=== PATIENT | female | born 1955 | race Caucasian/White ===

== ENCOUNTER 2023-06-30 11:06 | Emergency (ER) | payer OTHER, SELFPAY ==
[2023-06-30] VITALS (10 sets, daily range): BP systolic 118–167; BP diastolic 63–99; PULSE 70–82; RESP 13–20; TEMP 37.2; O2SAT 94–97; BMI 37.9
--- NOTE | 2023-06-30 11:33 | ECG_ITS ---
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
--- NOTE | 2023-06-30 11:33 | XR_ITS ---
The [address] [address] Patient Name: LASHON MARTINEZ MRN: [id number] date: 1955 Sex: F Assigned Patient Location: ER Current Patient Location: ER Accession/Order Number: [id number] Exam Date: 06/30/2023 11:45 Report Date: 06/30/2023 12:05 At the request of: MARYBEL MARIA Procedure: XR chest 1V EXAM: XR chest 1V HISTORY: cp COMPARISON: None. TECHNIQUE: AP view of the chest. FINDINGS: The cardiomediastinal silhouette is enlarged. The lungs are clear. There is no pneumothorax. No pleural effusion is noted. The osseous structures are intact. XR/XR chest 1V IMPRESSION: Cardiomegaly without failure. Electronically authenticated by: ROSA ORTIZ Date: 06/30/2023 12:05
[2023-06-30 11:40] LABS: Basophils Absolute Auto 0.1 10^3/uL (0.0-0.1); Basophils Percent Auto 0.6 % (0.2-2.0); Eosinophils Absolute Auto 0.3 10^3/uL (0.0-0.7); Hematocrit 44.8 % (36.0-48.0); Hemoglobin 14.7 g/dL (12.0-16.0); Immature Granulocytes Abs Auto 0.07 10^3/uL (0.00-0.03); Immature Granulocytes Pct Auto 0.7 % (0.0-0.5); Lymphocytes Absolute Auto 1.5 10^3/uL (1.2-3.8); Lymphocytes Percent Auto 14.4 % (20.5-60.0); Mean Corpuscular HGB Conc 32.8 g/dL (29.9-35.2); Mean Corpuscular Hemoglobin 30.4 pg (26.7-34.0); Mean Corpuscular Volume 92.8 fL (81.0-99.0); Mean Platelet Volume 9.5 fL (9.5-13.5); Monocytes Absolute Auto 0.9 10^3/uL (0.3-0.8); Monocytes Percent Auto 8.7 % (1.7-12.0); Neutrophils Absolute Auto 7.3 10^3/uL (1.4-6.5); Neutrophils Percent Auto 72.6 % (43.0-75.0); Platelet Count 390 10^3/uL (150-450); Red Blood Count 4.83 10^6/uL (4.20-5.40); Red Cell Distribution Width 12.7 % (11.0-15.0); White Blood Count 10.1 10^3/uL (4.0-11.0)
[2023-06-30] MEDS: ASPIRIN 81 MG TAB.CHEW 162 MG PO (11:43)
[2023-06-30 11:48] LABS: INR 0.95; Partial Thromboplastin Time 29.9 sec (22.3-36.2); Prothrombin Time 10.1 sec (9.0-11.6)
[2023-06-30 11:58] LABS: Alanine Aminotransferase 24 U/L (14-59); Albumin Globulin Ratio 0.9; Albumin Level 3.5 g/dL (3.4-5.0); Alkaline Phosphatase 119 U/L (46-116); Anion Gap 10.4; Aspartate Amino Transferase 18 U/L (15-37); BUN Creatinine Ratio 17.2; Bilirubin Total 0.5 mg/dL (0.2-1.0); Calcium 9.1 mg/dL (8.5-10.1); Carbon Dioxide 31.8 mmol/L (21.0-32.0); Chloride 93 mmol/L (98-107); Estimated GFR (African America >60 (>=60); Estimated GFR (Non-African Ame 60 (>=60); Globulin 3.9 g/dL; Glucose 210 mg/dL (74-106); Potassium 3.2 mmol/L (3.5-5.1); Sodium 132 mmol/L (136-145); Total Protein 7.4 g/dL (6.4-8.2); Troponin I High Sensitivity 4.5 pg/mL (4.0-51.3)
--- NOTE | 2023-06-30 12:29 | CT_ITS ---
[address] [address] Patient Name: LASHON MARTINEZ MRN: [id number] date: 1955 Sex: F Assigned Patient Location: ER Current Patient Location: ER Accession/Order Number: [id number] Exam Date: 06/30/2023 12:42 Report Date: 06/30/2023 13:07 At the request of: MARYBEL MARIA Procedure: CT angio chest EXAM: CT angio chest HISTORY: rule out PE COMPARISON: None. TECHNIQUE: CT chest with intravenous contrast was performed with timing for the evaluation for pulmonary arteries. Multiplanar reformats were performed. MIP (maximum intensity projection) images or 3D post processing was performed. Dose reduction techniques were achieved by using automated exposure control and/or adjustment of mA and/or kV according to patient size and/or use of iterative reconstruction technique. FINDINGS: Lungs: No consolidation, pneumothorax, or effusion. Mild bilateral centrilobular emphysema. Airways: Normal. Mediastinum: No adenopathy. Aorta: No aneurysm. Cardiac: Normal size. No pericardial effusion. Pulmonary vasculature: Diagnostic opacification of pulmonary arteries without evidence of pulmonary embolus. Normal morphology. Bones: No acute bony abnormality. Degenerative changes of the thoracic spine. Axilla: No adenopathy. Thyroid gland: No abnormality demonstrated on provided imaging. Soft tissues: Unremarkable. Upper abdomen: Small hiatal hernia Additional findings: None. CT/CT angio chest IMPRESSION: No evidence of pulmonary embolus or acute intrathoracic abnormality. Small hiatal hernia. Electronically authenticated by: SHINE CRESPO Date: 06/30/2023 13:07
--- NOTE | 2023-06-30 12:30 | ED_ITS ---
HPI - General Adult General Chief complaint: Chest Pain Stated complaint: CHEST PAIN Time Seen by Provider: 06/30/23 11:20 Source: patient Mode of arrival: walk-in Limitations: no limitations History of Present Illness HPI narrative: Patient is a 68-year-old female who is presenting to the ER today with chief complaint of midsternal and parasternal pain for the past 3 to 4 days. Patient does not recall doing any kind of heavy lifting, twisting or turning. Patient has pain with a deep inspiration, also pain with twisting and turning. Patient has a significant cardiac history in 2021, patient was unresponsive and in a coma for 3 to 4 days, when patient woke up she went into cardiopulmonary arrest. It was found that patient had pulmonary embolism that caused her arrest. Patient was also found to have A-fib and DVT. Patient is currently on Eliquis. Patient has no chest heaviness, tightness, no shortness of breath. Patient is afraid to take a deep breath secondary to the pain. Patient chief concern is pulmonary embolism. No swelling to legs, no abdominal pain, nausea or vomiting. All systems are negative except as noted/marked. All systems reviewed and otherwise negative. Nurses note and vital signs reviewed and patient is not hypoxic. General: The patient appears well and in no apparent distress. Patient is resting comfortably on cart. Patient is not toxic, lethargic, or listless Skin: Warm, dry, no pallor noted. There is no rash noted. No petechiae, purpura. Head: Normocephalic, atraumatic Eye: Normal conjunctiva, no drainage, EOMI. PERRL Ears, Nose, Mouth, and Throat: oral mucosa is moist. Nares patent. Mouth without vesicles. Cardiovascular: Regular Rate and Rhythm, no murmur, gallop, rub; patient has moderate to severe reproducible tenderness to palpation with light palpation to sternum and parasternal area, possible costochondritis. No rash noted. No pain to bilateral lateral posterior chest wall. Respiratory: Patient is in no distress, no accessory muscle use, lungs are clear to auscultation, no wheezing, rales or rhonchi Back: non-tender, no CVA tenderness bilaterally to percussion. No CT LS midline pain GI: Obese, no tenderness to palpation, no masses appreciated. No rebound, guarding, or rigidity noted. No distention Musculoskeletal: Patient has full range of motion of all of the extremities, no motor, sensory, or focal neurological deficits Neurological: A&O x4, normal speech Psychiatric: Cooperative Related Data Home Medications Medication Instructions Recorded Confirmed apixaban 5 mg tablet (Eliquis) 5 mg PO Q12H 06/30/23 06/30/23 atorvastatin 20 mg tablet 20 mg PO DAILY 06/30/23 06/30/23 duloxetine 60 mg capsule,delayed 60 mg PO DAILY 06/30/23 06/30/23 release metformin 500 mg tablet 500 mg PO TID 06/30/23 06/30/23 metoprolol tartrate 25 mg tablet 25 mg PO Q12H 06/30/23 06/30/23 montelukast 10 mg tablet 10 mg PO BEDTIME 06/30/23 06/30/23 nortriptyline 25 mg capsule 25 mg PO BEDTIME 06/30/23 06/30/23 pregabalin 100 mg capsule 100 mg PO TID 06/30/23 06/30/23 semaglutide 1 mg/dose (4 mg/3 mL) 1 mg subcut .weekly 06/30/23 06/30/23 subcutaneous pen injector (Ozempic) tramadol 50 mg tablet 50 mg PO Q6H PRN pain 06/30/23 06/30/23 triamterene 37.5 1 tab PO DAILY 06/30/23 06/30/23 mg-hydrochlorothiazide 25 mg tablet Allergies Allergy/AdvReac Type Severity Reaction Status Date / Time hydromorphone [From Dilaudid] AdvReac Mild Hypotension Verified 06/30/23 11:21 nitrofurantoin AdvReac Mild Hives Verified 06/30/23 11:21 [From Macrodantin] Exam Constitutional Vital Signs, click to edit/add: Last Vital Signs Temp 98.9 F 06/30/23 11:21 Pulse 70 06/30/23 13:00 Resp 15 06/30/23 11:46 BP 144/63 H 06/30/23 13:00 Pulse Ox 95 06/30/23 13:00 O2 Del Method Room Air 06/30/23 11:21 Course Vital Signs Vital signs: Vital Signs Pulse Rate 79 06/30/23 11:17 Respiratory Rate 13 06/30/23 11:17 Temperature 98.9 F 06/30/23 11:21 Pulse Rate 70 06/30/23 13:00 Respiratory Rate 15 06/30/23 11:46 Blood Pressure 144/63 H 06/30/23 13:00 Pulse Oximetry 95 06/30/23 13:00 Oxygen Delivery Method Room Air 06/30/23 11:21 Medical Decision Making MDM Narrative Medical decision making narrative: Patient will be given 1 L of IV fluids for sodium replacement of 132.. Patient was also given sodium bicarb to drink as well to help replace sodium with 3.2. Patient troponin is negative, chest x-ray shows no acute findings. Patient chief concern is pulmonary embolism. Patient will have CTA of the chest, patient has underlying fear of DVT, pulmonary embolism, and cardiac arrest from what occurred 2 years ago. Increase sodium and potassium in your diet, multivitamins work well. Follow-up with PCP or avionics manager as needed. A copy of your CTA chest has been given to you as well. Use ice and not heat. Lab Data Labs: Lab Results 06/30/23 Range/Units 11:25 WBC 10.1 (4.0-11.0) 10^3/uL RBC 4.83 (4.20-5.40) 10^6/uL Hgb 14.7 (12.0-16.0) g/dL Hct 44.8 (36.0-48.0) % MCV 92.8 (81.0-99.0) fL MCH 30.4 (26.7-34.0) pg MCHC 32.8 (29.9-35.2) g/dL RDW 12.7 (11.0-15.0) % Plt Count 390 (150-450) 10^3/uL MPV 9.5 (9.5-13.5) fL Neut % (Auto) 72.6 (43.0-75.0) % Lymph % (Auto) 14.4 L (20.5-60.0) % [place] % (Auto) 8.7 (1.7-12.0) % Eos % (Auto) 3.0 (0.9-7.0) % Baso % (Auto) 0.6 (0.2-2.0) % Neut # (Auto) 7.3 H (1.4-6.5) 10^3/uL Lymph # (Auto) 1.5 (1.2-3.8) 10^3/uL [place] # (Auto) 0.9 H (0.3-0.8) 10^3/uL Eos # (Auto) 0.3 (0.0-0.7) 10^3/uL Baso # (Auto) 0.1 (0.0-0.1) 10^3/uL Abs Immat Gran (auto) 0.07 H (0.00-0.03) 10^3/uL Imm/Tot Granulo (auto) 0.7 H (0.0-0.5) % PT 10.1 (9.0-11.6) sec INR 0.95 APTT 29.9 (22.3-36.2) sec Sodium 132 L (136-145) mmol/L Potassium 3.2 L (3.5-5.1) mmol/L Chloride 93 L (98-107) mmol/L Carbon Dioxide 31.8 (21.0-32.0) mmol/L Anion Gap 10.4 BUN 16.0 (7.0-18.0) mg/dL Creatinine 0.93 (0.55-1.02) mg/dL Est GFR ( Amer) >60 (>=60) Est GFR (Non-Af Amer) 60 (>=60) BUN/Creatinine Ratio 17.2 Glucose 210 H (74-106) mg/dL Calcium 9.1 (8.5-10.1) mg/dL Total Bilirubin 0.5 (0.2-1.0) mg/dL AST 18 (15-37) U/L ALT 24 (14-59) U/L Alkaline Phosphatase 119 H (46-116) U/L Troponin I High Sens 4.5 (4.0-51.3) pg/mL NT-Pro-B Natriuret Pep 60.0 (<=900.0) pg/mL Total Protein 7.4 (6.4-8.2) g/dL Albumin 3.5 (3.4-5.0) g/dL Globulin 3.9 g/dL Albumin/Globulin Ratio 0.9 Potassium is 3.2, sodium is 132, troponin negative. ECG Data Attestation: I personally reviewed and interpreted this ECG as follows: (EKG interpretation. Normal sinus rhythm 81 beats a minute. Normal axis deviation. No acute ST elevation, no acute ectopy. QTc of 379. RVH noted) Discharge Plan Discharge Stand Alone Forms: Portal Instructions Chief Complaint: Chest Pain Clinical Impression: Costochondritis, Chest pain, Hyponatremia, Hypokalemia Patient Disposition: Home, Self-Care Condition: Fair Prescriptions / Home Meds: No Action Eliquis 5 mg tablet 5 mg PO Q12H atorvastatin 20 mg tablet 20 mg PO DAILY duloxetine 60 mg capsule,delayed release(DR/EC) 60 mg PO DAILY metformin 500 mg tablet 500 mg PO TID metoprolol tartrate 25 mg tablet 25 mg PO Q12H montelukast 10 mg tablet 10 mg PO BEDTIME nortriptyline 25 mg capsule 25 mg PO BEDTIME pregabalin 100 mg capsule 100 mg PO TID triamterene-hydrochlorothiazid 37.5-25 mg tablet 1 tab PO DAILY Ozempic 1 mg/dose (4 mg/3 mL) pen injector 1 mg SUBCUT .weekly tramadol 50 mg tablet 50 mg PO Q6H PRN (Reason: pain) Instructions: Chest Pain (ED), Costochondritis (ED), Hyponatremia (ED), Hypokalemia (ED) Additional Instructions: Use Tylenol every 4 hours as needed for pain. A copy of your CT report was given to you. Follow-up with PCP and avionics manager as needed. You have no signs of pulmonary embolism today. Referrals: AMOS YOST [Primary Care Provider] - 1 week
[2023-06-30] MEDS: 0.9 % SODIUM CHLORIDE 1,000 ML 1000 ML IV (12:55)
[2023-06-30] MEDS: POTASSIUM BICARBONATE/CIT 25 MEQ TABLET EFF 50 MEQ PO (12:56)
[2023-06-30] MEDS: KETOROLAC TROMETHAMINE 30 MG/ML VIAL 15 MG IVP (13:23)
== END 2023-06-30 13:45 | disposition home or self-care (01) ==
PROVIDERS: Emergency Provider Emergency Medicine; PCP Internal Medicine
DX: R07.9 Chest pain, unspecified (principal); M94.0 Chondrocostal junction syndrome [Tietze]; E87.1 Hypo-osmolality and hyponatremia; E87.6 Hypokalemia; I48.91 Unspecified atrial fibrillation; Z86.718 Personal history of other venous thrombosis and embolism; Z86.74 Personal history of sudden cardiac arrest; E66.9 Obesity, unspecified; Z79.01 Long term (current) use of anticoagulants; Z79.899 Other long term (current) drug therapy; Z79.84 Long term (current) use of oral hypoglycemic drugs; Z68.37 Body mass index [BMI] 37.0-37.9, adult
CPT/HCPCS: 36415; 71045; 71275; 80053; 83880; 84484; 85025; 85610; 85730; 93005; 96374; 99285; Q9967

== ENCOUNTER 2024-01-18 18:05 | Emergency (ER) | payer OTHER, MEDICAID, SELFPAY ==
--- OUTSIDE RECORDS SUMMARY | 2024-01-18 18:17 | XMS_ITS | CCD ---
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 Name Role Phone Jude Barlow Unavailable Haylee Saucedo Unavailable Mummert DO, David Attending Unavailable Mummert DO, David Admitting Unavailable Mummert DO, David Primary Care Unavailable Mummert DO, David Primary Care Unavailable Tyler, Monalisa Attending Unavailable Tyler, Monalisa Admitting Unavailable Mummert DO, David Referring Unavailable Tyler, Monalisa Attending Unavailable Tyler, Monalisa Admitting Unavailable Mummert DO, David Primary Care Unavailable Mummert DO, David Primary Care Unavailable Mummert DO, David Attending Unavailable Mummert DO, David Attending Unavailable Mummert DO, David Primary Care Unavailable Mummert DO, David Attending Unavailable Mummert DO, David Primary Care Unavailable Mummert DO, David Primary Care Unavailable Mummert DO, David Attending Unavailable Mummert DO, David Primary Care Unavailable Castillo Riley Admitting Unavailab le Osvaldo Castillo Attending Unavailab le MYRNA CARR Attending Unavailable MYRNA CARR Referring Unavailable AMOS YOST Primary Care Unavailable AMOS YOST Referring Unavailable AMOS YOST Primary Care Unavailable AMOS YOST Attending Unavailable ARIEL FRY Attending Unavailable AMOS YOST Attending Unavailable Allergies Allergy Classification Reported Allergen(s) Allergy Type Date of Onset Reaction(s) Facility (4 sources) Erythromycin; Translations: [erythromycin] Drug Allergy 3 Unknown [facility] [place] Repository (2 sources) HYDROmorphone; Translations: [HYDROMORPHONE] Drug Allergy 3 Unknown [facility] Repository (2 sources) Nitrofurantoin; Translations: [NITROFURANTOIN] Drug Allergy 3 Unknown [facility] Repository (2 sources) HYDROmorphone; Translations: [Dilaudid] Drug Allergy [facility] [place] Repository (2 sources) Latex; Translations: [Latex Allergy] Propensity to adverse reactions (disorder) [facility] [place] Repository (2 sources) Nitrofurantoin; Translations: [Macrodantin] Drug Allergy [facility] [place] Repository (1 source) Erythromycin Drug Allergy 3 [facility] Repository (1 source) HYDROmorphone Drug Allergy 3 [facility] Repository (1 source) Nitrofurantoin Drug Allergy 3 [facility] Repository (1 source) Latex; Translations: [LATEX] Propensity to adverse reactions to drug (disorder) 3 [facility] Repository Medications Current Medications Medication Drug Class(es) Dates Sig (Normalized) Sig (Original) 3 ML semaglutide 1.34 MG/ML Pen Injector [Ozempic] (2 sources) inject 1 mg by subcutaneous injection every week Ozempic (1 MG/DOSE) 4 MG/3ML INJECT 1 mg SUBCUTANEOUSLY ONCE A WEEK Subcutaneous for 84 Days Active [id number] actuat albuterol 0.09 mg/actuat metered dose inhaler (2 sources) beta2-Adrenergic Agonist Albuterol Sulfate HFA 108 (90 Base) MCG/ACT Inhalation for 17 Days Active azithromycin 250 mg oral tablet (4 sources) Macrolide Antimicrobial Start: 09-12-2022 Azithromycin 250 MG 2 tablets on the first day, then 1 tablet daily for 4 days Orally Once a day for 5 day(s) August, Active Zithromax Z-Mikey 250 MG as directed Orally as directed for 5 days Active benzonatate 200 mg oral capsule (2 sources) Non-narcotic Antitussive Start: 09-12-2022 take 1 capsule by mouth three times daily as needed for cough Benzonatate 200 MG 1 capsule Orally Three times a day as needed for cough for 7 day(s) August, Active DULoxetine 60 mg delayed release oral capsule (2 sources) Serotonin and Norepinephrine Reuptake Inhibitor take 1 capsule by mouth once daily DULoxetine HCl 60 MG TAKE 1 CAPSULE BY MOUTH DAILY DO NOT CHEW OR CRUSH Oral for 90 Days Active fluticasone propionate 0.05 mg/actuat metered dose nasal spray (2 sources) Corticosteroid Start: 09-12-2022 take 1 spray(s) nasal route twice daily Fluticasone Propionate 50 MCG/ACT 1 spray in each nostril Nasally Twice a day for 14 days August, Active methylPREDNISolone 4 mg oral tablet (1 source) Corticosteroid Start: 11-10-2022 methylPREDNISolone 4 MG take half with breakfast, half with dinner Orally as directed for 6 days Oct, Active metoprolol tartrate 25 mg oral tablet (2 sources) beta-Adrenergic Jacinto take 1 tablet by mouth twice daily Metoprolol Tartrate 25 MG TAKE 1 TABLET BY MOUTH TWICE DAILY Oral for 90 Days Active pregabalin 100 mg oral capsule (2 sources) Pregabalin 100 M G Oral for 30 Days Active traMADol hydrochloride 50 mg oral tablet (2 sources) Opioid Agonist traMADol HCl 50 MG Oral for 30 Days Active triamcinolone acetonide 0.001 mg/mg topical ointment (1 source) Corticosteroid Start: 11-10-2022 Triamcinolone Acetonide 0.1 % 1 application Externally TID for 7 days Oct, Active Problems Active Problems Problem Classification Problem Date Documented Da te Episodic/Chronic Allergic reactions (1 source) Dermatitis, unspecified Episodic Chronic obstructive pulmonary disease and bronchiectasis (1 source) Bronchitis, not specified as acute or chronic Episodic Menopausal disorders (1 source) Other primary ovarian failure; 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 33 Finalized by Ayush Borges MD on 06/13/2023 3:01 PM [facility] Outside Recordson 11-24-2022 Outside Records [id number]#1.00[facility] Consultation/Specialist Note on 09-13-2022 Consultation/Specia list Note [id number]#1.00[facility] Release of Informationon Release of Information [id number]#1.00[facility] Consultation/Specialist Note on 07-21-2022 Consultation/Specia list Note [id number]#1.00[facility] Coding Summaryon 06-20-2022 Coding Summary HTMLBase 64 SswizrxxGWl7uEw+PG hlYWQ+IM5LKYBnS05n bOGpyF4ZY7oYRK3NFE BVVZFULX2DXG8mxTL9 WEicO1QefoTh WnxtgQMpLA24AWl5QQ R0gAnmPKtfhG0mmZPu F8e3AsRlEB43wW80DO afJDJgBjR7AvKsjruh bWFy D8olZwCjvMKjRtx+PH RhYmxlIHdpZHRoPScx KLVsXsWvfEcnHB9kMi 9yZGVyLWNvbGxhcHNl OiBj p9noBSWqFCmsAY2xdJ lmC3YdrGK5QMSge3s5 Yt51wLE+ZSLeEOV8cJ weGZaxr601UzUvx1qb IDM3 cRUiRQlvIJQ8B52nj3 B4YAMnJYXuKGV2qFX1 kJ8lkLhhnbbzO1BrsP VaPyR6WRB2hXJfpQ0z bGln zrtqeU9cBho+Q09ESU 0BANNUVB5PBui1P4Xu PjwvdHI+AB49CQGpLW 38bQNayRRes1lyhBi9 JzEw XMIjDRH4yYqoGZbxy6 PzPPJbG27vqJNyb7Y0 IGNvbGxhcHNlOyBlbX Z2sO3ySBkbmcmwa2hd dzsn Fvbkz5qguv11jI37A1 4uDVwvIHKbJRR5ZOIx LPAlzGwmra9scR4wWc 8+ACuiu8bae2nxjHk4 IjIw POEclvWmkMcsGXV0r3 BpVc65D0JopVczd6Cy Veg4ow99gJXxc9O3eK P3OSvxUZMfdT1wVMrd ZnQ6 AQGfXnWbaV85aYMrMX mnNw8meBbrgOcsOP5q NRGqdhuhGHPxhP2lTE RscQInzYwxAJ2vLUUc bjtm t803PcVbFTG8RTVdqX QbR9IlbE9eHlPtOBLu XAElE2LwqBXpUZcbQ6 83KQzwWpA5HQAdusEm Y2Fs RQVqjYhyLlF3j3G6Ix 3Yn6CmabhzIAT4KWdh DDTyNaM4NgNvQmQ9H1 TiXgr3GHVfzVzwFD3q J3Bh OEQethmwkcgkbZI9YK TiXLQzyA37rEAlJOfh Od8bm5L8b247IOJfWL QlrR49Tx8xzIajNYIb dCBU bL0fguutv3ngcqpkGx BvIRZtAQr7WMl6WGZp rGfqRkFkRHM3HwL5SB N1rDOclA6xzCfgkgkq dG9w Oyc+K38asB1vHXQ0CT J5ujymIOMnliMbZC21 HJ17P8IuQuijnBShcW U+WSXzpgPdvNsjQN3q YmFj g8xwd8BwMQpfP0VvGP AyUHeeOgt1RZVvXMP0 rRB4cP3cIXOkQUhdu9 O6rGS0H3JopyBgdq5a b2xs EDXdQBpoD25nbJVlm4 F6WUNzwAZ8XMJsbOlh HwJvgP92Cxd+PGNvbG erw5FxLpzpo4ger5dj dGg9 IjMwJSIgdmFsaWduPS M2t0ShXb42J01aUMxh ZHRoPSIxNSUiIHZhbG pnpo8vrH2fCt0+PGNv bCB3 hQG9hQ1mCYOiKjA3ER tdR530FzYhpSRzSfvq n3lme3olyOb8YpIiNK JimeSzhVypPGJ9n0Yb Lz48 Y10oHWyyDTZgARIuAI LgYYVxkOhelz9efK8n Ii8+EX5cz5otoc14yD 48dHI+ZOLwGLA4wNlv PSdw XMRqkM7wRZobRcH3MZ LsKcSulN66rGQfRByl Es2ynAeorOmtYS6vFP Bwoxrib099HpEju5wa IDEw jLEmDAhuPAY3F80as8 U9DLQyUHEiPOB3nHV0 aC4ctHqrnmoayAJlyQ sgdmVydGljYWwtYWxp Z246 IHRvcDsnPlBhdGllbn QcZtPxTTi2F8OzOtk1 ZAXsiWasKN2ljJLtWC gnBr7rwWtmgTirMB6v NTBp irgsk969HwYzi1rmJY PojRRxGZfeIMW3G89g r4W4TOMwAXUpWKN3aV F5fJ3keJaihrnjeIMs dDsg dmVydGljYWwtYWxpZ2 46IHRvcDsnPkJpcnRo IPYwhPZ0MZ17RO20rU Yif9F9pOB7N1EkCDOm bmct wkoqxFQ1OEJcOOLrkX 42Vq8mjXvtJs1gZJKj PNQ7WVNmrALoT9WlsA 7jUgKuWWXmPVQfZ7Ft eHQt YPxzA812OYyjImA2GP XowpScB3IhBNGqlOah AkV3j7M4Me5KQ6U1WA 70ZY80eGNtj0N1kWI7 J3Bh KJNpspceqhrafPY7IX KrRSFksX28Yh4icUsr Fx7mHGMbUCD7SGRinD GbA9UfjP1oSeYmEQYs MDAw F5QwaRAxSDewE152YK bvNgZ6OHNgfbTeH7Ai XITasEdvIlH2h4D8Am 0QJLj8HR25TR16jWMc c3R5 oYT2J7InLLLnjkqmyj zmcUD4JSQuPHIzcU34 Mr6jcTqzQs4kSADdPN W2UNPnkCAlN3SoxH8d OiAj HKBbUDDzJ2PfoZCeSE ftL557PXqeOyG0AARf lvXuI8TxCBAaiUrsFw C6s3W3Vx5UDHNcBX52 IFR5 sZK1ZO78MV45N1MbXe wvdGFibGU+PHRhYmxl IHdpZHRoPScxMDAlJy RvmJyrJU8aTv4cBIGd LWNv iKoohDLqYhJfr8lyTC VsKShjPR2alNkiV2Vn sAE7XOMxp6m1Bt21U0 9yV5ToeGY+PGNvbCB3 aWR0 bT3lHkExJvA4NRphH6 10FgVryTWtJzhkq4yo i9dhiSt2LrD9CBJrza OhxZxxHGT2p4KtCd44 Y29s IHdpZHRoPSIxNSUiIH QybSepit0vqZ7hYu3+ QQHlyOA7zCM9hM0uBe SaAtF0YLkcA181BdXx cCIv Minur3yal3jkzGj7Ey IwJSIgdmFsaWduPSJ0 n7QcLr24S4GhcHsyv5 XqIsi0bd28dLWsr1J0 bGU9 W0EyAGZufzikoOUtlJ knSO6cWJSjfxrqWORg nF8rJNYkH2b8VrLaAd Y3ILjsS7OlduB7QDFr cHQg EByyMBA5Q87bq1D7BP SmVBRxJIL6pXO0uT0m bGlnbjogbGVmdDsgdm PydWlcALgmODacR316 IHRv xUzrDLIdxJ3mUZLzaP UloKbzTI1mCRFvupxf HhqYQlZgDXrEZk6tAL 9COR80WV41mYVgq0S9 bGU9 S7MpHPNmhnwaikrymG G1SDYkOGZwaP57bKUv JNmbQc8tx7T1a085GQ GkAJTsaI51En2njOnv MTBw tMCRbU7cduoau3vhfd caJxOoMUJvPTt0NIl3 BPAasWpiUmGfEXQ7Ra S7PCU3zFIigZ3qnIkw bjog bB2iStt+MDIvMTYvMT b0ZTjjoEX+PHRkIHN0 nGdzKOlrVXYgkP6aLM NoY5t8FeWeApZ1NNuo O3Bh MEUroasfOa45aX0uFh AjEcO2VQupV5KqfrY3 GQLnsGGsURurZLK9I9 2ez0R5ZAVgSXExPEH1 dGV4 kE8frBthexespBPivE sgdmVydGljYWwtYWxp J752GSKjpErnCyX6FL gmTLIvEP49YV06rZKd c3R5 dLI6R7VzLNTimoqmyo jzcLG0TGNzWAOffR83 dZSnHMzdSb6kl8Y7q0 07OREqLBKcdW32Ct2v dDog CGCruBOJoH4pjjcph5 xvcjogIzAwMDAwMDt0 ILp5PWKgkRzsOkDfTI G7VqX4MFH2zOCqrM6c bGln kzlokL9tGgm+RkVNQU aNHD51WU38mQSfx8S3 zOM2F8HzYKTyvysjsx yncFY0NPHjQVMinO68 cGFk VWcgRb8hz6M6m445JP UsDTGmwR30Dz6cbStl TALacBVDxB6kiwmlb1 xvcjogIzAwMDAwMDt0 ZXh0 VHYwtIsaIeQjLDE9By J9WGL8dYChfT6hkCcn rcjgiI9eOfg+UmVjdX TpeO4lZV92pCBqrUhm bnQ8 D4PuMzumcXK+PC90YW NlTQ65iWLwcIXbo8wf cIj7BeFeFGWiHST5nR arARyvt3PbFTWeZ06t bGFw y6F8HNMcyTlcfCEbQe ObgMZ2uA2mHDkfyqhh e4luldxlMvrou4yypz 56dA21A93cWKaoBSNp PSIz QIOtKRLriCtkvy1zoD 9wIi8+ZGYnvNF3oMN0 gK1lDbEpZxN2TTodE4 54LgFnfSZrJkkbq4zs d2lk eYn6BpKaQIAijjBbyC pvYGD1j9JfEp06V00a IHdpZHRoPSIyMCUiIH UayNkfnw4gaU3eCh3+ PC9j u6bsmw85vD00iLQ+PH BkMNX4aQaeGFfgLXNd lH5rABhrCkF5EESqJz GtdM91pEJdZOfgCk7g aWdo vMvpRD3lOEYbekwbj5 08UpAjv0gtRBKbiIMs OAsuPKG2M33rd3T3UF PyZTRmCUC9dXE8gZ5m bGln bjogbGVmdDsgdmVydG idVJeiNVynC484GXEh lUppIwBrcFUyT4jjyy OFXO9jXbdiwPC+PHRk IHN0 bMigDSugPQRuyJ9wYE RhD5w5BhQmIbF5OLdk A0ZwtcU2SVJtiAWgBW KubEFPtI5cafujz5ti cjog IcUpCDAkUBd3SMe0GO MqsHdbVcLzZDE9IiB7 IJY4iZNqiJ7kcHwwwa pqqV7kCfe+RklOOjwv dGQ+ NXNhXCE2bRhqIHipCI IluW3vEGBtZ0j9KbEb SuR3CEpvH4IjjsV9IS NvkPNpCSPqfJVQsD8s cztj e2oshavyIlPvFHXlAF w5LEs6FRAzfUmiCwHf CMD6VhJ5USB8mHCsyG 7khCbothhwbQ7wRqx+ TVJO OjwvdGQ+JIRqTPH0jE qfSOxoFXTtiI9zQWTn M4c2DmJaXxL3KBzoS5 WqbwY9EHRgeWObGHAj dCBU aW2cvphuc3qwzyifIt EqLFDfZZe6COx2EZWv mXleSpMaDYY7AsZ0TS C3hBThkP4tlUxgigqr dG9w Oyc+QAH3ALE6UQ30OU 02Y9LdUlylbEMhlKW+ PHRhYmxlIHdpZHRoPS hbIJFlKgCsyDayZW0a Ym9y ZGV (more content not included)... [facility] Consultation/Specialist Note on 06-14-2022 Consultation/Specia list Note [id number]#1.[facility] Provider Orderson 06-14-2022 Provider Orders [id number]#1.00[facility] Coding Summaryon 05-11-2022 Coding Summary HTMLBase 64 PljmvvdtDTg0fYh+PG hlYWQ+EE7XLRHjP13c vKUuyP6GU5hOLS7RPC MVNKYBDV6WBD9bqGR5 BTztF0WqadJe GngxxYXdYQ81NEa6BI N5gYxlBWgrkB0naVIm A4f0AeYsOI67rR34HT sePZSoEoR3CaTvfvze bWFy S1zxXjDwlWBiYtf+PH RhYmxlIHdpZHRoPScx SFViDlKxbXihBR1bRn 9yZGVyLWNvbGxhcHNl OiBj m7gmGCMmWFjtXY9pkR lbH7ZoxYO9ZHSwt5m9 Gd10sOT+NPAuFES4uD voIZnmt094EzOhk8hp IDM3 zIPhYQwiTRF5M36rd8 M1DOQtYHShRUZ3rWT3 xB9nuHkiefogU2TiyP JbOmN4VYA4tPHtkO5z bGln ivjlxD6oMij+Q09ESU 0BGYSRZS4OPor6Q1Cz PjwvdHI+WO86ZDRxEZ 24gRXohSSmj1poxPz0 JzEw FQPiGLR4fJuyOBmjc1 WjGACwW86iqOJsc5F3 IGNvbGxhcHNlOyBlbX U6eH7aNBbyuwiyl9ty dzsn Oecdu6aniv61bY66M2 4gBVuvRKCzYUJ7XAZc AIUzgPewob7uvA5aTe 8+NLnfo3yul2rpzFw8 IjIw OJWescIvrGxaSHV4h5 JkEx61X7JijIjbb6Vr Kjt2dl10sHUqf6W1iP R6JXkoTSAmqF4oJQjk ZnQ6 TCGfUmBclF23tANpVD roTm1dsMcheBruCW1n SDDsqwoxKDSayI2kSI GnnULweOlbDZ5sVOWd bjtm j325JaTxHDS7GSRbkB DhD6PxfL0kEtGxCSQl QZLtZ8PehCAbHQacR3 78GZtvCjF5LIQkbtJh Y2Fs GOBeaWomUyR5j3V2Oq 9Fh8FqmiykOEQ4GCdo XIJxOzX7OqBzOtD7K4 ZoWsr2ALYjjAqvPQ2d J3Bh UHMnebvpraiipOA2ZM QhDDEfwO82dYIrYOks Nw1fy3P5t002YRAtIR ZghJ31Kw8emWeuMXBv dCBU mM2ewzsdx1oqxomyNn XsEUPrNOx2JBx7TETl cXwnOuSgLAD4RkQ3RW H9tSFawU8ijQottlbu dG9w Oyc+W68npP0yKOG1VY K7akvwNCBfvcGoFS30 GQ57U9VlAkpwnVUbeY U+YNDgszKyvQnqYO5a YmFj x1tzk8OcAMvnM0PuLM XqNUokKuw0CFVeVNV2 kEV5fL2sMDQoXPukw5 N4pKY0X9UtjtJpap7o b2xs NQBlPDafW62okXGsw5 H6PXJbrNB9MIFitFtq OyEtaH70Bso+PGNvbG xhu3CbDlfgr5aer6eh dGg9 IjMwJSIgdmFsaWduPS E4e6CrVv36A03nGGmj ZHRoPSIxNSUiIHZhbG tvad9lyA2zHx3+PGNv bCB3 xLI8cC8zRCVoQuX7SH mcK207ImRabPLpDuji d7cpu1ksuRp5MgNpFP PdgoFxnWkmNMU8b4Nx Lz48 F32mTImlXSAfEEXlSB OpFSIvzBqfgz6lxN0c Ii8+BM0iq6swae66gP 48dHI+PDZdXPZ8vElz PSdw RDEqwD1dXTykXoQ9ZL BnSkYsdM38nKWnUUpv Ip5ipHjopShsUB7cLL Rgljaze866MuUxc7ps IDEw cKJmHCkbUVX4W24ih5 O1JXSeAIQjZFF6dSC1 nA7ikDlotyassXZkgW sgdmVydGljYWwtYWxp Z246 IHRvcDsnPlBhdGllbn GtSmCtFHi0Z7GoJko6 RKIypMbbDC5tcDOjPN yoFu8xcKnvgTieNO4s NTBp xivfx832OuImj3yuMX QhkSUpGCpgESG2Y91g p5K6MELfSVKiUYM5hL Q0gQ8kyYlcjrnyjLIe dDsg dmVydGljYWwtYWxpZ2 46IHRvcDsnPkJpcnRo IJTsiPZ7NQ37QL88rW Fyk5C1hQM2Z6VvTDWc bmct czcmgZJ4MMCdFFPugB 28Lq4ppVmqTv2fTCPy VEP5MKRpaNZpS0DbjX 1kRoZxHWAzSRCrO9Um eHQt YAdmM626CBtrWcY3JZ DrdcKxD3EuANFenGkz JiI3h1P1Fn5UC0G6EV 78ED03aEKif9Q6rPO9 J3Bh LFDiubxadievoPB8CY VuCCNmqO05Gb7bxBfu Mr1oDTXjNDT3YIJmbV ZyO7BdqD0yKqPzOIVq MDAw W7SmaCHiKTmyV374CH qpPxD6AEXsfdGeE6Ek DBEkrMwzBwD6u1C5Hn 9BXEi3VQ35CB20wLJn c3R5 pZG8U1RiXDLmbldacg basHT3ZXElMTJikL75 Kl0epWexFz6qQJBcLT B4XNRwzHHsS0IvhO0a OiAj KKBzOLEhJ0CrcYBcYH nzB819AUavNwK0SVRb cjNvV2RbVADwrXevCz X5p5K0Oe0VAJKxSG42 IFR5 nZQ1TG58DB95B6UaTi wvdGFibGU+PHRhYmxl IHdpZHRoPScxMDAlJy JnmDcdOK8sLq4kGAPh LWNv lKswcXXwFiVlz7ivJY XxYKppNW3yrVvtG0Vz gIB6IVOap7k2Oy80A5 5dC8QcwIS+PGNvbCB3 aWR0 oW3eLxMyLqP5XTcfN6 47CwGzjAItUelnk2dl s6wmdBd4OpQ6KIEnnq PhtJqxLQN9c7KwYi12 Y29s IHdpZHRoPSIxNSUiIH BlaRysow4kyL2gWh3+ SZAfiBA3lJG3bO2sYp DzNrO1ZOipQ445DyZu cCIv Akoih2amc3zkfFs4Ep IwJSIgdmFsaWduPSJ0 y2SzBq63W9FmoHufd3 IaFhw4ck22cCZgu5Y0 bGU9 Z0PgLGAldaavhTSpzM qsIC1gOBAczqorIJUp bV5oVVRuL7h3ElQaIk J4ZIgbE9ZxwrB7EONm cHQg GRlmHSC2P02zg6R9JU DeDUOsIGH1dFH1wX9f bGlnbjogbGVmdDsgdm JwhMqhGWmtLGppH486 IHRv oHssGICrrL7hTYRpoS EfiMciHV5aDUImosgl NmhFAyEbRNxWAv3uVX 8KXM14NK42hZQln4Z9 bGU9 L9MgRFGsichezziroU N7ZGUwPNMfrQ51hXRu GBuoOa2pp1L8c332MT SoZEOssF17Gw5pxSdp MTBw dGRLbC8hscitq6uuhe xzLeKxONGfFPn9NYc8 VZNnzUvvVwQxKYW9Lj P3AQI3tBPvlZ4xsPrl bjog wD2kPjn+MDIvMTYvMT z3SKemoTG+PHRkIHN0 nGpaCMpxVYXzrZ6bDC JeC1a4IhVfNlP7VGji O3Bh DLDwhjvrGp45jS7fKq BzCiB8FAmvD3CxbuL8 AWLifANdYZtsRZB1E2 6hk2O2QFBdJZWeXWO1 dGV4 fX4wkDbyteroiCGxmM sgdmVydGljYWwtYWxp R727PKMmuMnuOdJ7OB wlMBUiLI39YS82xCSx c3R5 iYM7Q5QpIVTxjupgkj nsdRU1ZRVxHKTnyQ59 qBSjRGsxXm3zc3J1w0 48FHOiXQSawO83Pp2j dDog HXFmxIMNwO5lzetvz6 xvcjogIzAwMDAwMDt0 OZi7CQGowZbqOoPcWU H7JcV5EYY2lKHubZ5f bGln mwhrdT4zBry+RkVNQU uBDJ58DA01fLJrg0E6 qYD1K6RbGMHsrpytsr zjbMN7LBLjTAImeC80 cGFk FYblNe4gf6H7h524OH YxCWTpvK38Yt5adTaz LVOaeGJHgE0poxizg7 xvcjogIzAwMDAwMDt0 ZXh0 LYYwaBhzDhEmEOZ6Jh E6ZFK4gANwgK6xhZzy drlswU4fTam+T1A8L3 RkPjwvdHI+UO23GGSi ZT48 dBKydNZut8nbbMu9Fv UzYHCzWHR6lLmgFUgg m0TiYBEoD41vsTWwb7 A9YDPfoFzevOOsGmWh bXB0 wC9fJAzhgzirn2ufsd qtGdxob9jdod06qB28 E86bTSmgZJJoARLlAT FnOILhhUlbeu2jmH7q Ii8+ SUItvFD2uHQ5dW6lVb NjJtD0SBesJ889DjRq gHMgMvrzw6bnu4pzzI e2LrQyGJPhhxWztVeq PSJ0 o3JoTe76Q20qDKdcPK RoPSIyMCUiIHZhbGln pq2cfB8eDx6+PC9jb2 piwz87hU19sRN+PHRk IHN0 iTfeJBtuULDveG6bBW keHiJ1QLZtVrUkfJ33 nJLtHGvbWv7hxNrmeX qxQY2gSYNwfprsv101 OiBi t7heUUHvsUQvSJtcEP P9G28xd1Y3QVItBCFg CRZ0lMW4iE5wnPhruw ogbGVmdDsgdmVydGlj YWwt LJfoZ192LZWtvTjxKm RrwZEjI4latvWDAZ7a OjwvdGQ+KPJzSWV9bO tdGPibGOWssF4oAYMz Z2h0 CgBbPeD1AFinN1Hkqk A5GGNoqVRoWIUtqMLT lW1lixygq9njdokgWm MtLXRzPHx1IYx7DDAj aWdu HrVrPHK2ZzL2OOU8mH PbqM3bjXgykmasnN6o Oyc+RklOOjwvdGQ+PH GiLKX2xWyjLYqkTNJu aW5n PCMpV4c6YzQnEoT2QR bcT9IvdsY8OELfjNGc ZDCieBRWjI8ymbmvh6 xvcjogIzAwMDAwMDt0 ZXh0 KPQpeSuwSmIfGUP6Gz H7LUC9jYHpsY3deAma cljqpM1lUav+TVJOOj wvdGQ+OTRfKIZ0kWsr PSdw QSOxgX7lHJXwB3a4Al IpJqX3RXbgV3JrawD8 IGJvbGQgMTBwdCBUaW 0riuyet0zfotvmEjQq MDAw GBa2MHk7OLYpsQvbUw DlVJY0DqL2ZJH2wQWj gX4bnVvojkbypG4sVu c+MXZ8QXR2FM22NY16 L3Ry PjwvdGFibGU+PHRhYm xlIHdpZHRoPScxMDAl QtJnjAdgAD0lBh0aDS VyLWNvbGxhcHNlOiBj b2xs YXB (more content not included)... Normal [facility] [place] .Auto Diff 05-04-2022 Auto [place] % 8 % Normal 04-28 [facility] [place] Comment on above: Performed By: #### 7 [id number], [id number], [id number], [id number] #### [facility] (DEFAULT) [address] [place] [address] Baso Abs# 0.0 x10 Normal 0.0-0.2 [facility] [place] Comment on above: Performed By: #### 7 [id number], [id number], [id number], [id number] #### [facility] (DEFAULT) [address] [place] [address] 85441 Basophils/100 WBC (Bld) 0.6 % Normal 0.2-2.0 [facility] [place] Comment on above: Performed By: #### 7 [id number], [id number], [id number], [id number] #### [facility] (DEFAULT) [address] [place] [address] 20630 Eos Abs# 0.4 x10 Normal 0.0-0.4 [facility] [place] Comment on above: Performed By: #### 7 [id number], [id number], [id number], [id number] #### [facility] (DEFAULT) [address] [place] [address] 85878 Eosinophils/100 WBC (Bld) 4.4 % High 0.9-4.0 [facility] [place] Comment on above: Performed By: #### 7 [id number], [id number], [id number], [id number] #### [facility] (DEFAULT) [address] [place] [address] 66576 Lymph Abs# 1.5 x10 Normal 1.3-2.9 [facility] [place] Comment on above: Performed By: #### 7 [id number], [id number], [id number], [id number] #### [facility] (DEFAULT) [address] [place] [address] 53965 Lymphocytes/100 WBC (Bld) 17 % Normal 14-48 [facility] [place] Comment on above: Performed By: #### 7 [id number], [id number], [id number], [id number] #### [facility] (DEFAULT) [address] [place] [address] [place] Abs# 0.8 x10 Normal 0.0-0.8 [facility] [place] Comment on above: Performed By: #### 7 [id number], [id number], [id number], [id number] #### [facility] (DEFAULT) [address] [place] [address] Neut Abs# 6.3 x10 Normal 1.5-9.2 [facility] [place] Comment on above: Performed By: #### 7 [id number], [id number], [id number], [id number] #### [facility] (DEFAULT) [address] [place] [address] Neutrophils/100 WBC (Bld) 70 % Normal 44-88 [facility] [place] Comment on above: Performed By: #### 7 [id number], [id number], [id number], [id number] #### [facility] (DEFAULT) [address] [place] [address] CBC w/ Auto Diffon Erythrocyte distribution width (RBC) [Ratio] 13.3 % Normal 11.5-15.0 [facility] [place] Comment on above: Performed By: #### 7 [id number], [id number], [id number], [id number] #### [facility] (DEFAULT) [address] [place] [address] Hematocrit (Bld) [Volume fraction] 43.9 % High 33.7-40.4 [facility] [place] Comment on above: Performed By: #### 7 [id number], [id number], [id number], [id number] #### [facility] (DEFAULT) [address] [place] [address] Hemoglobin (Bld) [Mass/Vol] 14.4 g/dL Normal 11.3-15.9 [facility] [place] Comment on above: Performed By: #### 7 [id number], [id number], [id number], [id number] #### [facility] (DEFAULT) [address] [place] [address] Instr WBC 9.0 x10 Invalid Interpretation Code [facility] [place] Comment on above: Performed By: #### 7 [id number], [id number], [id number], [id number] #### [facility] (DEFAULT) [address] [place] [address] Man Diff? Auto Normal [facility] [place] Comment on above: Performed By: #### 7 [id number], [id number], [id number], [id number] #### [facility] (DEFAULT) [address] [place] [address] 44604 MCH (RBC) [Entitic mass] 30 pg Normal 24-34 [facility] [place] Comment on above: Performed By: #### 7 [id number], [id number], [id number], [id number] #### [facility] (DEFAULT) [address] [place] [address] 29705 MCHC (RBC) [Mass/Vol] 33 g/dL Normal 26-37 [facility] [place] Comment on above: Performed By: #### 7 891704, [id number], [id number], [id number] #### [facility] (DEFAULT) [address] [place] [address] MCV (RBC) [Entitic vol] 92 fL Normal 81-100 [facility] [place] Comment on above: Performed By: #### 7 [id number], [id number], [id number], [id number] #### [facility] (DEFAULT) [address] [place] [address] Platelet 412 x10 Normal 138-427 [facility] [place] Comment on above: Performed By: #### 7 [id number], [id number], [id number], [id number] #### [facility] (DEFAULT) [address] [place] [address] Platelet mean volume (Bld) [Entitic vol] 9.7 fL Normal 6.3-10.2 [facility] [place] Comment on above: Performed By: #### 7 [id number], [id number], [id number], [id number] #### [facility] (DEFAULT) [address] [place] [address] 23032 RBC 4.78 x10 Normal 3.70-5.30 [facility] [place] Comment on above: Performed By: #### 7 [id number], [id number], [id number], [id number] #### [facility] (DEFAULT) [address] [place] [address] WBC 9.0 x10 Normal 3.5-10.5 [facility] [place] Comment on above: Performed By: #### 7 [id number], [id number], [id number], [id number] #### [facility] (DEFAULT) [address] [place] [address] Standardon 05-04-2022 eGFR Non AA >60 Invalid Interpretation Code [facility] [place] Comment on above: Performed By: #### 7 [id number], [id number], [id number], [id number] #### [facility] (DEFAULT) [address] [place] [address] eGFR AA >60 Invalid Interpretation Code [facility] [place] Comment on above: Result Comment: [employer] maribel Kidney disease could be indicated at eGFRs of less than 60 ml/min/1.73m2. Kidney Failure is indicated at less than 15 ml/min/1.73m2 Performed By: #### 7 [id number], [id number], [id number], [id number] #### [facility] (DEFAULT) [address] [place] [address] Albumin [Mass/Vol] 4.0 g/dL Normal 3.5-5.0 [facility] Comment on above: Performed By: #### 7 580409, [id number], [id number], [id number] #### [facility] (DEFAULT) [address] [place] [address] Albumin/Globulin [Mass ratio] 1.4 {ratio} Normal 1.4-2.6 [facility] [place] Comment on above: Performed By: #### 7 [id number], [id number], [id number], [id number] #### [facility] (DEFAULT) [address] [place] [address] Alk Phos 97 IU/L High 32-91 [facility] [place] Comment on above: Performed By: #### 7 [id number], [id number], [id number], [id number] #### [facility] (DEFAULT) [address] [place] [address] ALT [Catalytic activity/Vol] 17.0 U/L Normal 14.0-54.0 [facility] [place] Comment on above: Performed By: #### 7 [id number], [id number], [id number], [id number] #### [facility] (DEFAULT) [address] [place] [address] 41289 Anion gap [Moles/Vol] 14.0 mmol/L Normal 5.0-19.0 [facility] [place] Comment on above: Performed By: #### 7 [id number], [id number], [id number], [id number] #### [facility] (DEFAULT) [address] [place] [address] 48163 AST [Catalytic activity/Vol] 23 U/L Normal 15-41 [facility] [place] Comment on above: Performed By: #### 7 [id number], [id number], [id number], [id number] #### [facility] (DEFAULT) [address] [place] [address] 54725 Bili Total 0.7 mg/dL Normal 0.3-1.2 [facility] [place] Comment on above: Performed By: #### 7 [id number], [id number], [id number], [id number] #### [facility] (DEFAULT) [address] [place] [address] 44654 Calcium [Mass/Vol] 9.3 mg/dL Normal 8.9-10.3 [facility] Comment on above: Performed By: #### 7 [id number], [id number], [id number], [id number] #### [facility] (DEFAULT) [address] [place] [address] 47835 Chloride [Moles/Vol] 93 mmol/L Low 101-111 [facility] [place] Comment on above: Performed By: #### 7 [id number], [id number], [id number], [id number] #### [facility] (DEFAULT) [address] [place] [address] 62190 CO2 [Moles/Vol] 29 mmol/L Normal 21-32 [facility] [place] Comment on above: Performed By: #### 7 568415, [id number], [id number], [id number] #### [facility] (DEFAULT) [address] [place] [address] 56000 Creatinine [Mass/Vol] 0.76 mg/dL Normal 0.60-1.30 [facility] [place] Comment on above: Performed By: #### 7 391428, [id number], [id number], [id number] #### [facility] (DEFAULT) [address] [place] [address] 33868 Globulin (S) [Mass/Vol] 2.8 g/dL Normal 1.5-4.3 [facility] [place] Comment on above: Performed By: #### 7 622111, [id number], [id number], [id number] #### [facility] (DEFAULT) [address] [place] [address] 72707 Glucose [Mass/Vol] 169.0 mg/dL High 74.0-118.0 [facility] Comment on above: Performed By: #### 7 [id number], [id number], [id number], [id number] #### [facility] (DEFAULT) [address] [place] [address] 83885 Osmolality 268 mOsm/L Invalid Interpretation Code [facility] [place] Comment on above: Performed By: #### 7 [id number], [id number], [id number], [id number] #### [facility] (DEFAULT) [address] [place] [address] 70052 Potassium [Moles/Vol] 4.0 mmol/L Normal 3.6-5.1 [facility] [place] Comment on above: Performed By: #### 7 744219, [id number], [id number], [id number] #### [facility] (DEFAULT) [address] [place] [address] 23751 Protein [Mass/Vol] 6.8 g/dL Normal 6.5-8.1 [facility] Comment on above: Performed By: #### 7 587744, [id number], [id number], [id number] #### [facility] (DEFAULT) [address] [place] [address] 85369 Sodium [Moles/Vol] 132.0 mmol/L Low 136.0-144.0 [facility] Comment on above: Performed By: #### 7 071093, [id number], [id number], [id number] #### [facility] (DEFAULT) [address] [place] [address] 82095 Urea nitrogen [Mass/Vol] 12 mg/dL Normal 8-26 [facility] [place] Comment on above: Performed By: #### 7 [id number], [id number], [id number], [id number] #### [facility] (DEFAULT) [address] [place] [address] 17964 Urea nitrogen/Creatinine [Mass ratio] 16.0 mg/mg Normal 4.6-16.2 [facility] [place] Comment on above: Performed By: #### 7 559546, [id number], [id number], [id number] #### [facility] (DEFAULT) [address] [place] [address] 01859 Lipid Panel Standardon 05-04 Cholesterol [Mass/Vol] 144.0 mg/dL Normal 66.0-200.0 [facility] [place] Comment on above: Result Comment: Sarah rable - Less than 200 mg/dL Borderline high risk - 200-239 mg/dL High risk - 240 mg/dL and over. Performed By: #### 7 495343, [id number], [id number], [id number] #### [facility] (DEFAULT) [address] [place] [address] 68477 Cholesterol in HDL [Mass/Vol] 67 mg/dL Normal 40-71 [facility] [place] Comment on above: Result Comment: High risk - <40 mg/dL. Performed By: #### 7 583784, [id number], [id number], [id number] #### [facility] (DEFAULT) [address] [place] [address] 75372 Cholesterol in LDL [Mass/Vol] 54 mg/dL Normal 1-100 [facility] [place] Comment on above: Result Comment: Opti mal - Less than 100 mg/dL Borderline high risk - 130-159 mg/dL High risk - 160-189 mg/dL. Performed By: #### 7 253182, [id number], [id number], [id number] #### [facility] (DEFAULT) [address] [place] [address] 76194 Cholesterol.total/C holesterol in HDL [Mass ratio] 2.1 {ratio} Normal 0.0-4.5 [facility] [place] Comment on above: Performed By: #### 7 001175, [id number], [id number], [id number] #### [facility] (DEFAULT) [address] [place] [address] Triglyceride [Mass/Vol] 112.0 mg/dL Normal 0.0-150.0 [facility] [place] Comment on above: Performed By: #### 7 130410, [id number], [id number], [id number] #### [facility] (DEFAULT) [address] [place] [address] VLDL. 22 mg/dL Normal 5-40 [facility] [place] Comment on above: Performed By: #### 7 162657, [id number], [id number], [id number] #### [facility] (DEFAULT) [address] [place] [address] Patient Provided Health Data on 05-04-2022 Patient Provided Health Data [phone] [id number] Normal [facility] [place] Vital Signs Date Time Vital Sign Value Performing Clinician Facility 11-10-2022 12:55-0400 Body height 152.4 cm Haylee Saucedo Other [facility] Other 11-10-2022 12:55-0400 Body mass index (BMI) [Ratio] 37.1 kg/m2 Haylee Saucedo Other [facility] Other 11-10-2022 12:55-0400 Body weight 86.18 kg Haylee Saucedo Other [facility] Other 11-10-2022 12:55-0400 Diastolic blood pressure 78 mm[Hg] Haylee Saucedo Other [facility] Other 11-10-2022 12:55-0400 Respiratory rate 18 /min Haylee Saucedo Other [facility] Other 11-10-2022 12:55-0400 SaO2% (BldA) [Mass fraction] 93 % Haylee Saucedo Other [facility] Other 11-10-2022 12:55-0400 Systolic blood pressure 120 mm[Hg] Haylee Saucedo Other [facility] Other 09-12-2022 11:00-0400 Body height 152.4 cm Jude Barlow Other [facility] Other 09-12-2022 11:00-0400 Body mass index (BMI) [Ratio] 37.1 kg/m2 Jude Barlow Other [facility] Other 09-12-2022 11:00-0400 Body temperature 97.3 [degF] Jude Barlow Other [facility] Other 09-12-2022 11:00-0400 Body weight 86.18 kg Jude Mercadoaker Other [facility] Other 09-12-2022 11:00-0400 Respiratory rate 18 /min Jude Barlow Other [facility] Other 09-12-2022 11:00-0400 SaO2% (BldA) [Mass fraction] 97 % Jude Barlow Other [facility] Other Encounters Encounter Date Encounter Type Care Provider Facility Start: 12-07-2023 End: 12-07-2023 ambulatory AMOS YOST Not Available Start: 11-02-2023 End: 11-16-2023 ambulatory MYRNA CARR [facility] Start: 08-23-2023 End: 08-23-2023 ambulatory ARIEL FRY Not Available Start: 06-07-2023 End: 02-21-2024 ambulatory AMOS YOST [facility] Start: 04-19-2023 End: 04-19-2023 ambulatory AMOS YOST Not Available Start: 12-27-2022 ambulatory Castillo Lopes acility:[facility] Start: 11-23-2022 End: 11-24-2022 ambulatory David Mummert DO Facility:[facility] [place] Start: 11-15-2022 End: 11-23-2022 ambulatory David Mummert DO Facility:[facility] [place] Start: 11-10-2022 End: 11-10-2022 ambulatory Haylee Saucedo Other [facility] Other Start: 11-10-2022 Office outpatient visit 15 minutes Haylee Saucedo [facility] Start: 09-14-2022 ambulatory David Mummert DO [facility] Start: 09-12-2022 End: 09-12-2022 ambulatory Jude [place] Other [facility] Other Start: 09-12-2022 Office outpatient ne w 20 minutes Jude Barlow [facility] Start: 06-09-2022 End: 06-10-2022 ambulatory David Mummert DO Facility:[facility] Start: 2022 End: 06-03-2022 ambulatory David Mummert DO Facility:[facility] Start: 05-18-2022 End: 06-14-2022 ambulatory Monalisa Scott Facility:[facility] [place] Start: 05-03-2022 End: 05-04-2022 ambulatory David Mummert DO Facility:[facility] [place] Start: 05-02-2022 End: 05-03-2022 ambulatory David Mummert DO Facility:[facility] Payers Date Payer Category Payer Self-pay 2022 Unknown [id number] 2022 Unknown [id number] 1955 Unknown [id number] 2.16.8 [id number] 1955 Unknown [id number] 2.16.8 [id number] 1953 Unknown [id number] 2.16.8 [id number] 1953 Unknown [id number] 2.16.8 [id number] 1953 Unknown [id number] 2.16.8 [id number] 1953 Unknown [id number] 2.16.8 40.1.411208.3.579.2.718 1953 Unknown [id number] 2.16.8 40.1.778586.3.579.2.8 1953 Unknown [id number] 2.16.8 40.1.201599.3.579.2.1286 1953 Unknown [id number] 2.16.8 40.1.966311.3.579.2.1286 1953 Unknown [id number] 2.16.84 0.1.767814.3.579.2.9 1953 Unknown [id number] 2.16.84 0.1.563543.3.579.2.1259 1953 Unknown [id number] 2.16.840 .[id number] Medicare [id number] 2.1 [id number] Social History Date Type Detail Facility Unknown if ever smoked [facility] Other Sex Assigned At Sex Assigned At Bir th [facility] Other Evaluation note 11-10-2022 Note Date & Type Note Facility 11-10-2022 Evaluation note Encounter Date Diagnosis Assessment Notes Oct, Eczema, unspecified type (ICD-10 - L30.9) Discussed with patient rashe is consistent with eczema. 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 Discussed most important treatment is use of emollient such as Aquaphor or Cetaphil lotion. We will treat with triamcinolone ointment. We will also treat with Medrol Dosepak for this current flare. Discussed steroids due to increased blood glucose levels, monitor medications and diet closely. Follow-up with PCP if not gradually improving over the next 7 to 10 days or eczema is worsening in general. Patient verbalized understanding of treatment plan. [facility] Other Evaluation note 09-12-2022 Note Date & Type Note Facility 09-12-2022 Evaluation note Encounter Date Diagnosis Assessment Notes August, COVID-19 virus infection (ICD-10 - U07.1) Discharge Instructions for COVID-19 (Suspected or Confirmed ) material was printed Unfortunately given the duration of her symptoms, she is not a candidate for covid antiviral therapy. She does appear to have secondary bronchitis. Will prescribe zpak ,benzonatate, and fluticasone. Considered prednisone, however, she states, I can't take prednisone because it makes my sugar go crazy. Advised to go to the ER if her symptoms worsen or she develops chest pain, sob, or feels like she is going to pass out. August, Bronchitis (ICD-10 - J40) [facility] Other History general Narrative - Reported Note Date & Type Note Facility History general Narrative - Reported Type Medical History Anxiety Medical History Asthma Medical History HTN (hypertension) Medical History Diabetes Medical History Obesity Medical History Neuropathy Medical History Seasonal allergic rhinitis Medical History Afib Surgical History tonsillectomy Surgical History colon resection Surgical History C section Surgical History hernia repair Surgical History tubal ligation Hospitalization History See HPI [facility] Other Summary Purpose Family History No Family History Records FoundNo Family History Records FoundNo Family History Records FoundNo Family History Records FoundNo Family History Records Found Advance Directives No Advanced Directives Records FoundNo Advanced Directives Records FoundNo Advanced Directives Records FoundNo Advanced Directives Records FoundNo Advanced Directives Records Found Additional Source Comments REASON FOR VISIT (unrecogniz ed section and content) COVID POSITIVERASH, ON RIGHT ARM, BUT SPREADING INFORMATION SOURCE (unrecogn ized section and content) DATE CREATED AUTHOR 11/24/2022 [facility] DATE CREATED AUTHOR AUTHOR'S ORGANIZ ATION 11/25/2022 [facility] DATE CREATED AUTHOR AUTHOR'S ORGANIZ ATION 07/08/2023 [facility] DATE CREATED AUTHOR AUTHOR'S ORGANIZ ATION 11/18/2023 [facility] DATE CREATED AUTHOR AUTHOR'S ORGANIZ ATION 12/09/2023 [facility] FOR RECORDS PERTAINING TO PATIENTS WHO ARE OR HAVE BEEN ENROLLED IN A CHEMICAL DEPENDENCY/SUBSTANCEABUSE PROGRAM, SOME INFORMATION MAY BE OMITTED. This clinical summary was aggregated from multiple sources. Caution should be exercised in using it in the provision of clinical care. This summary normalizes information from multiple sources, and as a consequence, information in this document may materially change the coding, format and clinical context of patient data. In addition, data may be omitted in some cases. CLINICAL DECISIONS SHOULD BE BASED ON THE PRIMARY CLINICAL RECORDS. [facility] [employer] provides no warranty or guarantee of the accuracy or completeness of information in this document.
[2024-01-18 18:22] VITALS: BP 148/94; PULSE 77; TEMP 37.1; O2SAT 94; BMI 34.3
--- NOTE | 2024-01-18 19:36 | ED_ITS ---
HPI - Skin/Abscess/Foreign Bdy General Chief complaint: Skin/Abscess/Foreign Body Stated complaint: FOREIGN OBJECT IN NOSE Time Seen by Provider: 01/18/24 19:13 Source: patient Mode of arrival: walk-in Limitations: no limitations History of Present Illness HPI narrative: This 68-year-old female presents for evaluation and concern of a retained fingernail in her right nostril. The patient states that she was picking her nose and her fingernail broke off inside of her nose. She states she can still feel the fingernail inside of her nose and believes there is a suction holding it against the medial aspect of her nose. She has continued to pick at her nose and used tweezers to try to remove the fingernail but was unable to get it out. She has not had any foreign body sensation in the back of her throat or choking. She has had some mild nasal bleeding. Related Data Home Medications ?Medication ?Instructions ?Recorded ?Confirmed apixaban 5 mg tablet (Eliquis) 5 mg PO Q12H 06/30/23 06/30/23 atorvastatin 20 mg tablet 20 mg PO DAILY 06/30/23 06/30/23 duloxetine 60 mg capsule,delayed 60 mg PO DAILY 06/30/23 06/30/23 release metformin 500 mg tablet 500 mg PO TID 06/30/23 06/30/23 metoprolol tartrate 25 mg tablet 25 mg PO Q12H 06/30/23 06/30/23 montelukast 10 mg tablet 10 mg PO BEDTIME 06/30/23 06/30/23 nortriptyline 25 mg capsule 25 mg PO BEDTIME 06/30/23 06/30/23 pregabalin 100 mg capsule 100 mg PO TID 06/30/23 06/30/23 semaglutide 1 mg/dose (4 mg/3 mL) 1 mg subcut .weekly 06/30/23 06/30/23 subcutaneous pen injector (Ozempic) tramadol 50 mg tablet 50 mg PO Q6H PRN pain 06/30/23 06/30/23 triamterene 37.5 1 tab PO DAILY 06/30/23 06/30/23 mg-hydrochlorothiazide 25 mg tablet Allergies Allergy/AdvReac Type Severity Reaction Status Date / Time hydromorphone [From Dilaudid] AdvReac Mild Hypotension Verified 01/18/24 18:22 nitrofurantoin AdvReac Mild Hives Verified 01/18/24 18:22 [From Macrodantin] Review of Systems ROS Status of ROS 10 or more systems reviewed and unremark able except as noted in history and below PFSH PFSH Social History Little interest or pleasure in doing things: not at all Feeling down, depressed, or hopeless: not at all Exam Narrative Exam Narrative: Vital signs and Nursing Notes reviewed: Patient is afebrile with a normal pulse, blood pressure is mildly elevated at 148/94, she is not hypoxic with pulse ox of 94% on room air General: Awake, alert, oriented, no acute distress, lying comfortably on the stretcher HEENT: Normocephalic atraumatic, mucous membranes are moist and pink, eyes are clear, normal conjunctiva, vision is grossly intact, posterior pharynx is normal in appearance. A nasal speculum was used to evaluate the nose and nasal mucosa. I was unable to appreciate any retained foreign body. There is marked excoriation at the medial aspect of the nasal turbinates as well as the lateral aspect of the nasal mucosa. I also evaluated the left nostril and did not see any retained foreign body in this area but there was also excoriation noted. There is no active bleeding or other notable abnormality. There is no facial tenderness or palpable deformity on the external nose. Neck: Supple, no meningeal signs, no anterior or posterior cervical lymphadenopathy Chest: Lungs are clear to auscultation with good air entry, there is no wheezing rhonchi or rales appreciated no accessory muscle use, patient is speaking in complete sentences-no chest wall tenderness to palpation CVS: Regular rate and rhythm S1-S2, no murmurs rubs or gallops, pulses are brisk and equal bilaterally Skin: Normal in appearance without rash,pallor, petechiae or purpura Neuro: No focal deficits Constitutional Vital Signs, click to edit/add: Last Vital Signs Temp 98.7 F 01/18/24 18:22 Pulse 77 01/18/24 18:22 Resp 20 01/18/24 18:22 BP 148/94 H 01/18/24 18:22 Pulse Ox 94 L 01/18/24 18:22 Course Vital Signs Vital signs: Vital Signs Temperature 98.7 F 01/18/24 18:22 Pulse Rate 77 01/18/24 18:22 Respiratory Rate 20 01/18/24 18:22 Blood Pressure 148/94 H 01/18/24 18:22 Pulse Oximetry 94 L 01/18/24 18:22 Temperature 98.7 F 01/18/24 18:22 Pulse Rate 77 01/18/24 18:22 Respiratory Rate 20 01/18/24 18:22 Blood Pressure 148/94 H 01/18/24 18:22 Pulse Oximetry 94 L 01/18/24 18:22 MDM - Skin/Abscess/Foreign Bdy MDM Narrative Medical decision making narrative: This 68-year-old female presents for evaluation and concerned that she has a retained fingernail in her right nostril after picking her nose earlier in the day and having her fingernail break off. Multiple evaluations were made into the right nostril and I was unable to appreciate any retained foreign body especially any fingernail however there is marked excoriation of the nasal mucosa and turbinates. I explained to her that is possible that she pushed this up into her sinuses but this appears unlikely as she has a very small bridge of her nose and is not having any tenderness in this area. There is no active bleeding. She was given mucosal lidocaine for comfort and medicated with oral Keflex to prevent infection from the marked excoriation that was induced by her attempting to remove the foreign body with both her fingernails and tweezers. She will be referred to outpatient ENT for further evaluation as I was unable to appreciate the foreign body. Discharge Plan Discharge Chief Complaint: Skin/Abscess/Foreign Body Clinical Impression: Nasal foreign body Patient Disposition: Home, Self-Care Time of Disposition Decision: 19:29 Condition: Good Prescriptions / Home Meds: No Action Eliquis 5 mg tablet 5 mg PO Q12H atorvastatin 20 mg tablet 20 mg PO DAILY duloxetine 60 mg capsule,delayed release(DR/EC) 60 mg PO DAILY metformin 500 mg tablet 500 mg PO TID metoprolol tartrate 25 mg tablet 25 mg PO Q12H montelukast 10 mg tablet 10 mg PO BEDTIME nortriptyline 25 mg capsule 25 mg PO BEDTIME pregabalin 100 mg capsule 100 mg PO TID triamterene-hydrochlorothiazid 37.5-25 mg tablet 1 tab PO DAILY Ozempic 1 mg/dose (4 mg/3 mL) pen injector 1 mg SUBCUT .weekly tramadol 50 mg tablet 50 mg PO Q6H PRN (Reason: pain) Print Language: Citizen Of [place] Additional Instructions: Use the lidocaine as needed for comfort. Apply a thin film on a Q-tip and apply it to your nasal mucosa. Use the antibiotics as directed and follow-up closely with your family doctor and ENT. Referrals: AMOS YOST [Primary Care Provider] - 1 week Patricia Hunt MD [Physician] - As soon as possible
[2024-01-18] MEDS: CEPHALEXIN 500 MG CAPSULE PO (19:38)
[2024-01-18] MEDS: LIDOCAINE VISCOUS 2% 15 ML SOLUTION TOPICAL (19:39)
[2024-01-18 20:00] VITALS: PULSE 78; O2SAT 95
== END 2024-01-18 20:03 | disposition home or self-care (01) ==
PROVIDERS: Emergency Provider Emergency Medicine; PCP Internal Medicine
DX: T17.1XXA Foreign body in nostril, initial encounter (principal); W44.8XXA Other foreign body entering into or through a natural orifice, initial encounter
CPT/HCPCS: 99283

== ENCOUNTER 2024-01-23 10:27 | Outpatient (OUT) | payer OTHER, MEDICAID, SELFPAY ==
--- OUTSIDE RECORDS SUMMARY | 2024-01-22 14:16 | XMS_ITS | CCD ---
Author Organization [facility] Care Team Providers Care Journeyman Level Acoustic Analyst Name Role Phone Jude Barlow Unavailable Haylee [...] Erythromycin; Translations: [erythromycin] Drug Allergy 3 Unknown [facility] Repository (2 sources) HYDROmorphone; Translations: [HYDROMORPHONE] Drug Allergy 3 Unknown [facility] Repository (2 sources) Nitrofurantoin; Translations: [NITROFURANTOIN] Drug Allergy 3 Unknown [facility] Repository (2 sources) HYDROmorphone; Translations: [Dilaudid] Drug Allergy [facility] Repository (2 sources) Latex; Translations: [Latex Allergy] Propensity to adverse reactions (disorder) [facility] Repository (2 sources) Nitrofurantoin; Translations: [Macrodantin] Drug Allergy [facility] Repository (1 source) Erythromycin Drug Allergy 3 [facility] Repository (1 source) HYDROmorphone Drug Allergy 3 [facility] Repository (1 source) Nitrofurantoin Drug Allergy 3 [facility] Repository (1 source) Latex; Translations: [LATEX] Propensity to adverse reactions to drug (disorder) 3 [facility] Repository Medications Current Medications Medication Drug Class(es) Dates Sig (Normalized) Sig (Original) 3 ML semaglutide 1.34 MG/ML Pen Injector [Ozempic] (2 sources) inject 1 mg by subcutaneous injection every week Ozempic (1 MG/DOSE) 4 MG/3ML INJECT 1 mg SUBCUTANEOUSLY ONCE A WEEK Subcutaneous for 84 Days Active [id number] 200 actuat albuterol 0.09 mg/actuat metered dose [...] Ayush Borges MD on 06/13/2023 3:[address] [facility] Outside Recordson 11-24-2022 Outside Records [id number]#1.00OTGTIFF [facility] Consultation/Specialist Note on 09-13-2022 Consultation/Specia list Note [id number]#1.00[facility] Release of Informationon Release of Information [id number] [id number]#1.00[facility] Consultation/Specialist Note on 07-21-2022 Consultation/Specia list Note [id number]#1.00[facility] Coding Summaryon 06-20-2022 Coding Summary HTMLBase 64 IwvpfzocFBm9qTj+PG hlYWQ+CI6PBAWoK39d xJBlsF2ZA3iWTU7PCT SMDPBUCN8ANL2ixNR2 VGvnS2JwpoJt SqfsrIByAZ77KKc0BG Y1cWxsNXidxG8rcCRk F8n1SyWsEO08yY71EF kaRZGaApI6ReIxepsb bWFy W4adCjJzrYIbJiu+PH RhYmxlIHdpZHRoPScx NXWsDvNntOivGL5wMx 9yZGVyLWNvbGxhcHNl OiBj k5hlRGQmWEvhTU0vzA hhO0RgeXY5HMOuv1i7 Ml36fGG+IPJpIRS5yF aeEAqjv270IoEcf2sa IDM3 jEYwNLpeIHB4V93ry3 R9YLZoTFEyRWO7cQS2 lI9uzAtrioucD5QpyY ArKbU0ASC3qMKnlQ7q bGln tiafbP4yYso+Q09ESU 6DSLNZCI6MAhf4R9Ay PjwvdHI+DS83PJLjIK 30bSBvpYBkd8jrpHs0 JzEw GEHnDDZ9zEicQVhbs5 LxXKKnI71ucKUed5Q1 IGNvbGxhcHNlOyBlbX Z9sV1vZMwvbbfoh0ay dzsn Oznwc1bqkb54iT63I5 5dMHjdWLUtMIE2EVQu IQBiePnqbv6xsW4lLh 8+IEdra6ajf7dhkGg7 IjIw HPHweaQlkOcbNTE1w2 XuMl03J6YhuFfse1Gc Udg9uj87lAUqk7C4nR H4XSlsVIRvwE7bHZtw ZnQ6 CEFmTxXmxV61aSBwWX ceCq5vcRenmFqqCO4a JOChjgjrBDHybP3wQX DouLJwnBocRQ7iEHNd bjtm o889JiEcSYS8HCLdzN PlT5BwzG0vUsSrFJXt WEEtO0WmaXOoFDmkZ5 50RZgtNvV8GXKikoFd Y2Fs RCKrrRihRyC5h4M8Of 4At1ByvhciAHA0QSrw KQYaSnE1DdXvZoR1E6 GjOvf1PTKskWqdUV1a J3Bh TJOoxzrvkiyugKK3XZ EmXSGntY08tMPtAJkx Rl8ka8L9t683QSItPV LymL50Lx1ihRkfJYJd dCBU qY5iwtwau6xvcwauWv HvNOJjUNk1ZPz5ZWIp bChzEzXuHGD3JdD2GM R7pSJrbM2hbJffylst dG9w Oyc+A15ilV3oRMG6AE X1xbofDEUtwmIxZN12 DC75K4BpTzsraBNwyI U+DDNfnzLumHizRG2k YmFj m5tnr7EeSFudS4GpZN GrLEnoMeq3IZOtXVF1 gWJ4eQ3bTJLnKQmqj9 E3wPW7Z8FyfgLcpb6i b2xs SSJaFHemC66vvJEad3 R0ULRtcFI2VJOofYss WuRogT42Arq+PGNvbG jwa1EbOjqiq2lhn7vc dGg9 IjMwJSIgdmFsaWduPS P8l6YwBc32I74yFCjx ZHRoPSIxNSUiIHZhbG tvsi4usC5oBb6+PGNv bCB3 qDR3jG9kFYIcBdK4GH osS586FvFgqZAjSvrv o3rsk3awuDm8SkWdHT AlkgKsaQgfHQN3d4Rl Lz48 H24eUXgeZOPrZPUpSN KcNTUvfQjlxm2ziM5i Ii8+UY3rb3hmce99vT 48dHI+EWAxHXE0nTrp PSdw GTZkpI6iUObePpC5SZ EvIbObrM53uYRhKBay Rn1bvJhnpEdkAI3tPY Lffqwzo471IgNry2nb IDEw vQTmDProQTK5K25os0 K0BTYuLDQaWZY1kSZ3 qR8lbFrollzizLSmcH sgdmVydGljYWwtYWxp Z246 IHRvcDsnPlBhdGllbn XsZkYnFIn3S1JgMge8 UNYtpHsuYN3raVWaKG bgWg3imWskgHrhNB8q NTBp rhnsj578WeLwm9sqZD UziZUaXRqiVLQ2V52i m6G1CTJsUTUgOVE6lW N0lR2tcRvgowpflQYn dDsg dmVydGljYWwtYWxpZ2 46IHRvcDsnPkJpcnRo WQTalFS3OH33OY08uQ Ird5N3tXE9X0AoHQLw bmct lgtadRL4CBQnVZJmzW 28Gx1ahGycOi8hJRQp HGL8BKTcsYRgQ5ZcmK 4xRwFmZNOgWNDkF5Fd eHQt QTmiO308QYgqGfI4SJ VbtuOdE4LpUVNmwPdt AsZ5u1Y3Sr4BL5O9BI 49NM32tAOtd9A9cOP4 J3Bh SPGrnsejzdabnHC4LY DeYJNtwM36Mz1scVax Nk9tIUYjMOX6WCWvxQ TbL8VgyO4qNuNrALLl MDAw L7DtfMPhWTpmC177ZE yjXeV6ZJNxzsMyL8Ie PAVnpQovAbA2h8M3Da 8IYQw5QB80XA89zQZh c3R5 zPB2L4BlPTFmcxvnaf tyzNU7NPDlYUNtqM90 Hg5aqAuzDg5bEKCtTY E3CLUufPFbK5XolR7x OiAj OKYoLXAjP0RgbJOmAO fjU828GIvgYxG2FOVi mxDtL3VcXDPsfNarGl R3o0E5Vv7RFNHoFT59 IFR5 fMI7GJ87AL52V9MnLu wvdGFibGU+PHRhYmxl IHdpZHRoPScxMDAlJy QvrCwkIU0aIt2iMTEf LWNv tPbzkXXtMtPtj6tsAV RcHNmkPI5lzZmsD4Dv cCF1OTBcz4b0Pn30L2 3dY5KdlMC+PGNvbCB3 aWR0 nN6ySfRmYjR8RJxmW4 80IpZwzHNuHvmae2ho q3pobFb4KeT7MPXumf EpkOehPMV5k2HoPx46 Y29s IHdpZHRoPSIxNSUiIH CnjWlwxo8moH6vTu9+ GXNnuUE9tIG5pQ2nZl RuVwX2NYcyH237ZmCs cCIv Oicsg0hao7yioGu5Gz IwJSIgdmFsaWduPSJ0 g3PbPl07R1WapOibw8 FuOda0cq11cZIby6E5 bGU9 R6YsZQPdosqqlMYjjT itST4jDSUdmmllCTIs tQ8rNEDtO7x2EcNtDc J4PPbvA7MqxqW1NYIy cHQg XAclFPD5A71lb4H3LM WnWPDlHTK0rNY6bC0q bGlnbjogbGVmdDsgdm GbrIyuTMskQRlnW374 IHRv aAeiKVMboK7iNNLxfS GdlVgdDR3vWIQepexy RjbRUgVfSGmAAz2lSP 1ZFC83IG73yWQim2A4 bGU9 S6TsTFBaowyrcqjbaT A8XLJuCDMuhH21uMZq FAfjJv4nq3G3p538VD QgTTXbnN75Pf2msBex MTBw aTKLhT7xwqbqk4ulqf yoKiUuWGKuBHt0COr6 JOHdwCqxTjWnZCF7Ht M5DSL0hNPdrJ4syKvm bjog eG1hEgf+MDIvMTYvMT x2RUmezHK+PHRkIHN0 iKcpJXqdVQLqwI0dMC GdH6q7SqGeQgT3ZHdj O3Bh WKFjrkefHl09iL9oOp MyJgS1OPebM6JxdpC3 NRCxdDOkGTwuNRS7H5 8fv6D6ZKRvOEGvTDS1 dGV4 mX7alTzltzqexQKinU sgdmVydGljYWwtYWxp E693ULVnfIucVxJ0ZE ugNAZnEJ01YP81eXLw c3R5 uDA3O4DaEXXtyrchat yvvRH4QTNnRWUynO25 nGEvEMdcOr3cv3H3t9 36QYZhCQWmzR09Ix1a dDog BTTweEOVuW9vagtik4 xvcjogIzAwMDAwMDt0 QPf8UCMobXczSwYkVC J0KnB0NSJ0gINauD2f bGln pwisuL6uJuc+RkVNQU gCCT11OV46sDMlj5E3 tPJ1F3HjGPYtxpvbon quwPI0OIAmMIDlkS44 cGFk NBdiDb3up4D6q402GG EiPSFmzL25He6mfZdr OURhqXAUkX0dpilut0 xvcjogIzAwMDAwMDt0 ZXh0 TPOeyVxnOpJlHGU4Ti J8IWC2aVCbtL5ocAzj bqgraD4hSfw+UmVjdX PoqF4cAU64iDGfzUat bnQ8 M5SuCrkyvKM+PC90YW MuMP41zIYahFTrv8ok uCu1KgWfGNNwLYH7dE psUBhuv0EwTNHtO53q bGFw r3A3TJXroVyjoIDmWh WawOE6rG0jZNhkdcsj i7torkexYvufc1hxzq 11kU56J49aKProQYVc PSIz RBKvLQWhoGckcj5teB 9wIi8+BCHcdAS8sIT5 sP0zQiUfDeC4YHveS5 17OwSsnOLfModxa5lq d2lk rOg7LhXzWRCiwyArsT wkPHU7p8GbEs18T71q IHdpZHRoPSIyMCUiIH ZydYcvak1pqY4wZh8+ PC9j g1xuaw09xJ66aJU+PH AmAIX1vCeeGPfcVOJq rN0uTRrpDpS6JSSqGu DcgV34uUZvMOtpSi8m aWdo wAtmUL2vHCIbfobyu5 34XcZes8hiDVDckWNv QErjEZW7K48es4U7YF NwKURhEEC5oJS4fU9o bGln bjogbGVmdDsgdmVydG mpQQlcSVhfF331LNMa lUijPsCrvGWjW8fscz OYVR4cJiviyNP+PHRk IHN0 yYsqWZszKVEcvB1vDC PrF6g1NvJaTiV1FIsl Q5HefzK4TTPlyPTtDZ NlxFSSsR8zwwmcn1ef cjog EoGsVHHzHMq5RKt2EU HzkNtvZiEtDMZ7SpX3 PZM3wAVkdN5hiNvstd wonT8cZup+RklOOjwv dGQ+ INHxXBX0bBtqNDxgEQ DodT5hKFOyK8p9YeYk QvS8TMpoO2ChcgH8MA DipOUxSYGepHUZoF7r cztj a0zbbngzFaHkXTGkHJ e9JLt3HKTimMjvIiAz DTV8HhY6WQH2nNLbkT 5mqGqclkkxlS6bQdg+ TVJO OjwvdGQ+XDLvUFE2aT kiMLpzOXBvhO1nLEYu X0s2AfElJpG2UAjbC0 BertC0SKKpcXWiVUDc dCBU pL4sptxfv3aajpvrAk VxVRSgOUt2HGh4MHHf dEgwDeKiXFD2BwE5ZE Z4lIYsmC6zkCxndoly dG9w Oyc+AIF8BGS0AU82LH 77I0IbPkltlIMlmTK+ PHRhYmxlIHdpZHRoPS dkFJViSdZpqMxcCD4u Ym9y ZGV (more content not included)... [facility] Consultation/Specialist Note on 06-14-2022 Consultation/Specia list Note [id number] Provider Orders [id number][facility] Coding Summaryon 05-11-2022 Coding Summary HTMLBase 64 VwahwbfaRQr0tZj+PG hlYWQ+EF1DRYGmY99p wBAueF1ZP9zVNS6IIA JAXADIVX9CHE1vyXZ8 CWzlO2QkeiZn PbskzDUqVR64NJm9VB F5cHikEWjguM5lpSAh W6h5HyPlOP47lD36WM zkIVBaKoW8QkHjbpkt bWFy B1tvJeZweGMwSui+PH RhYmxlIHdpZHRoPScx HCUzEvLgbRzmGV9xOo 9yZGVyLWNvbGxhcHNl OiBj t9btZOMvGKqoXG6fwW jlN7NqqMT7CFOge9s8 Ei17iNQ+PEAmYXZ1qC ytUIepk283HtSbl3fa IDM3 nZUxILjoHDO1J29xj0 V1TPRqVUNaCHI8dBC6 tS3teMxxfikoB5JygA CdKxL2LBX5xRBbkF6u bGln kbfsjV8zMwj+Q09ESU 0WBJHRIX4COtm4E2Ms PjwvdHI+PV39QIYsLB 13yJOokRCjl7pnvTw4 JzEw PPOgCPY6oJyaWRhuy3 ImPXIaL53jxZYrp7M2 IGNvbGxhcHNlOyBlbX X4rB9bSUbexgiac8pq dzsn Mzphj9fjff60yI32T5 4wQBufRALqGGH2VYCv MHIpsUbffv7toB9oHi 8+TFxxu8loe3wfdHt0 IjIw VTLzbdAfzTdmMGW5w7 GbOo55S8MckYkbt1Ma Gxv4ym24wLYpa8Q5rL P5UJmfATLwrI0rAQzl ZnQ6 VFOrDbGfdU71iLLeNB ztJb6atYoofZnjKZ4d JTKvyrxlJVTziT3iFY ApwJAxzXfiMZ6zINFk bjtm a495FyPrJJG2TAMvoM FhD9BhmC0gXdTtTEXe IHMrN7NjkBTfGJcsW3 02FBbgTfI7UKUropOb Y2Fs RIGmrFvaWeA5a9A2Mk 5Fq7ZgnhpzWBL2WJgv HDHrBhH4NjBbZeA6O5 XqImc1QRWebNulQC0d J3Bh EKDmwtgpieqpaVW7RA RzEHUgmM32uHIhWAex Zf3dk2I7t689HBAnMM QgkL00Hi7phAxpTINv dCBU xG6nqhwms6ohxuveEj VaHOVoTYk0PZp8NKTl kWwiAsTsWVU1GeI8YJ H8lSXirY2msPtxhiwx dG9w Oyc+G44lhW9lDJA7RP E7eaznBEPpcnUoTF94 KU52V1JhYkbfpJBzbM U+GRWmkuSalUzaOT0k YmFj r2pqd5AuKZpmN4KsTL MlCIhdXyd8HWPbFKZ3 qAF9oB4ySMBgTRvqb8 G9nJJ0L4QntoPnuz1m b2xs CTQnVIyjL33veIZkb7 B1CNEcsDC6NMFunAeg YcIshM23Nrf+PGNvbG hvj1PuRttxg5kfa1zc dGg9 IjMwJSIgdmFsaWduPS C8g9RhCa02Y69hFThn ZHRoPSIxNSUiIHZhbG jkvi4ofT2pUu7+PGNv bCB3 wBO1oN3hJXIaWaL6RS nnE180IdGtrIAzYcdc b3mdp4eewNa9CeLjQD HgamEuxBpeDMJ4s8Of Lz48 F84uGGdjDSXuMSQzNL HpMGKhdBfunm4haZ1v Ii8+GM0ur5bcpu84fF 48dHI+PMDiMTO3yMdr PSdw TGMrfR9jUDkqRuE2SD MpLjPcgA46aORzLZit Ec5mtEmruOytRY5yKJ Sywivff775AnElf4pp IDEw hISvNUrqMRO5H42lh4 L2AWTzCMHoUDV0dJC6 xT9ncLacqklegOBrjM sgdmVydGljYWwtYWxp Z246 IHRvcDsnPlBhdGllbn QsKuKiXFa6M3YjQhw6 KYGuaGoiRO8aqUBpWT veAh9wxEzimLxhAK8p NTBp brfxu979XjOxr6jzDA BegDGjGCsdSXO4S90k a5H1KWYbSKSrXDU0cF M7dV2pnXycluikzOGa dDsg dmVydGljYWwtYWxpZ2 46IHRvcDsnPkJpcnRo WHJdmHG6NB44PF68xC Wcq0I8eWI8K2IqIOKt bmct tkgmtLR1ZGYnMHVauU 28Vj7dqOgoZy1gSNCl ALU1ZSYreNUbU6OxuB 2sNgEwZUKcGSLiO3Rg eHQt FXpjY674INnjWpQ8NA FtkdLaC0LmZKGmcKrc HxD9w9N6Vp6YO1F9CB 78XR19qURms0I7hHO4 J3Bh BQFmixavrcbtaTD2XM RgZEAqoB79Po9zkEve Rq0fHKIaFEK6TVXxeZ TqZ0ZvrY2sWaNaHHLa MDAw M9PzlWLmSPynX600XQ feIhO3UKQqqiZmE0Vy MSQzoZfnLkR3f9H5Qc 1TFIf0FA48LH22wZZq c3R5 uBF4W2XpOUYfzacsin avlRG8SKYzYBYjgT33 Xy1nlSipPq7uQWHvTV F6MLWgwVLyI0ZfkC8s OiAj SAZrGSOpY5YdiGYcLV yqJ647GAjzZgX5DPCi dqRgQ2XgVSRyfEplHh N1g2A4Be1QVEErGX15 IFR5 cKU4TF51NK63V4PyLy wvdGFibGU+PHRhYmxl IHdpZHRoPScxMDAlJy SmaEjrGI5eNb0lRFDh LWNv uTflbELbZvEiu7jfYI JhKEwsFI8tkGepR1Rm kFC6ZGIor5v9Jy70I8 0uK0SytWE+PGNvbCB3 aWR0 tD2dIlVpYmN6PSloJ0 82BnWkbBXxQksrz7th e9wziNe3IcH1CGYwki GyxJyaABS5n2UdSs47 Y29s IHdpZHRoPSIxNSUiIH OecDixpy5taN5gXn8+ SYMzaBE7gAE1fY6cOs XhOnQ3IWovD778CoSc cCIv Tgtdf5okd3njzLn7Bu IwJSIgdmFsaWduPSJ0 f1ZjIm83L9IlhUewn2 BpApd7sf61yKDif6E9 bGU9 K6YtWEXhnpfrgNVpdZ otFD5wXCRcdymfAWYc eU2qBPRuP1a2GuUyHw U1NBuwN5SlayM5OZPo cHQg HUcnBSB8F78ax4M8HA UbDXUgQHD9fFK9yU6s bGlnbjogbGVmdDsgdm VagZwoZSvrYAtyX300 IHRv qWiiRHYtuX3fJVXdrT FrgIgyZV2wYJNqbfma PwrKRiVvMMgOKh0fNN 3DHZ57QU81uZRzh6G8 bGU9 E1FcCJMmhxfbuqunvP M1JXPsWNJjyF81kRQt WXiuNb4ou1E7l692TW TiEAMdnL13Rb3ssGbt MTBw sFXVpK5wvcfql0ezgw msEuItEKHxJFf1QCh4 TJOxmZwsIoNgZZR2Zz H8VMA7gEWszH2ryZbs bjog kK2aKno+MDIvMTYvMT z1TUcdtHL+PHRkIHN0 cAliQDocVXXgbO6kVR NxV3q6JjPmLiS1JEdv O3Bh BUHxugjtRc36wI1oRn BoYjA6EPsrO2XxagL5 FIEbbTHzDLshIIZ5P5 8tf9M6ESVkFPOdFAH8 dGV4 lS2jxDczuupxoEFawS sgdmVydGljYWwtYWxp Z542KABtqXdyEqZ5NM ixGFCaHQ01YK83jQJv c3R5 oGF1S7BzLTFoikzwag yaiBR0ZQUiIOEujM26 vQBjHEanJt2yl7P4z9 72ZEJqDLOxyJ29Qu2t dDog BPBvaNXYaV0ocalkp3 xvcjogIzAwMDAwMDt0 QGr8BIUuvXmuCkUdOA R8PxD7CWI8qRBpxL2g bGln fjfotZ7mCbd+RkVNQU qUGA61LR02iACzs6U9 cSF2P1JtPJCxyegpun ggeEK7QOIqKTJouM33 cGFk TDpzMg3ty4T5g537AZ TqQOGlyI91Mu5ccYkl BFGdvNEGlU4btcvxs2 xvcjogIzAwMDAwMDt0 ZXh0 BNGygUwlLaYrGPK2Ui H5RTZ1nQHdiM8dmPqz ehdkaX8iAoq+T1A8L3 RkPjwvdHI+SJ73RZFb ZT48 cQIvkNWyq0mpcCx2Ie EkLTMcEKH3iSgxIKjp l2WsVDTbL83lhUKpf3 L3RNWleKeegXOnGjWb bXB0 yJ1wCYkxsinox6rfsv qzRqxbm7pelz62vP22 A04oWVesEHApYYYmTF TvRNUvcInitd0uuD8r Ii8+ JBIecSQ4tBB3nY6tOd ZxBiU3SDppT463MpCm fLEdDwqnn3mnz9qvmZ i2QcQqOKVzxuSzkPjp PSJ0 l2MsXe37P59xTKaeLV RoPSIyMCUiIHZhbGln ic7koO9yLw0+PC9jb2 aodh63nE13iSY+PHRk IHN0 gBurURaqUAYfbX5kYN sdJtI0XKDaOhQoaF49 qZMuBWabOb0wlCcncU ayQT4lJFSplftuf683 OiBi x9ciTNVpsDPaLOfeLW A1Z68dj8J1BPSpVIPq QXA3fOO7yL6vtZuacq ogbGVmdDsgdmVydGlj YWwt DUzhC675LLUspOvaKi UnrHEiW3txrlXMQP8u OjwvdGQ+HGNoFLN7xO ynMOdrENXcuZ8dGCJr Z2h0 XbXqJpC1KFhkB9Jwmm Q1LTGesSAvGFRgxSUP iI1pynelk3snhoxcLl OnYXPnAFd2ZFv7DFRg aWdu TiWjMRR7WeM7CPE9rQ YjbJ9btHghlgbecI4p Oyc+RklOOjwvdGQ+PH ShKSG0xJdiYPyrPYTg aW5n ZANgT9a4FoIpNyE8CJ mlC7RtvwW8NHLsmMLe FGHsmKYMnK4ysscjy9 xvcjogIzAwMDAwMDt0 ZXh0 UROhoFpiCyFoPOJ0Eg L0NHB5kECwzY5pvWkw hjdaxV1hZli+TVJOOj wvdGQ+TWCuCXH5qChv PSdw BOHzxQ0cWHGvD0o8Nj MgXgE3LOsnT3HprnR0 IGJvbGQgMTBwdCBUaW 3cnkbdw5tpqjbgZwCs MDAw YTh3ILa3FQBayCahPs FeMRE0PoO6VBE5nCLw pN6pmSnhlnkhrN5fNq c+YST2TOB3JP21KG44 L3Ry PjwvdGFibGU+PHRhYm xlIHdpZHRoPScxMDAl CrPjwJurIZ1oIf9lGW VyLWNvbGxhcHNlOiBj b2xs YXB (more content not included)... Normal [facility] .Auto Diff 05-04-2022 Auto [place] % 8 % Normal 04-28 [facility] Comment on above: Performed By: #### 7 [id number] #### [facility] (DEFAULT) [address] [place] [address] Baso Abs# 0.0 x10 Normal 0.0-0.2 [facility] Comment on above: Performed By: #### 7 [id number] #### [facility] (DEFAULT) [address] [place] [id number] Basophils/100 WBC (Bld) 0.6 % Normal 0.2-2.0 [facility] Comment on above: Performed By: #### 7 [id number] #### [facility] (DEFAULT) [address] [place] [id number] Eos Abs# 0.4 x10 Normal 0.0-0.4 [facility] Comment on above: Performed By: #### 7 553020, [id number], 16045817, [id number] #### [facility] (DEFAULT) [address] [place] [address] 61139 Eosinophils/100 WBC (Bld) 4.4 % High 0.9-4.0 [facility] Comment on above: Performed By: #### 7 248801, [id number], 64732025, [id number] #### [facility] (DEFAULT) [address] [place] [address] 00134 Lymph Abs# 1.5 x10 Normal 1.3-2.9 [facility] Comment on above: Performed By: #### 7 821528, [id number], 71299688, [id number] #### [facility] (DEFAULT) [address] [place] [address] 21351 Lymphocytes/100 WBC (Bld) 17 % Normal 14-48 [facility] Comment on above: Performed By: #### 7 333359, [id number], 29454139, [id number] #### [facility] (DEFAULT) [address] [place] [address] [place] Abs# 0.8 x10 Normal 0.0-0.8 [facility] Comment on above: Performed By: #### 7 069603, [id number], 67508372, [id number] #### [facility] (DEFAULT) [address] [place] [address] Neut Abs# 6.3 x10 Normal 1.5-9.2 [facility] Comment on above: Performed By: #### 7 165475, [id number], 38970145, [id number] #### [facility] (DEFAULT) [address] [place] [address] Neutrophils/100 WBC (Bld) 70 % Normal 44-88 [facility] Comment on above: Performed By: #### 7 412826, [id number], 93565335, [id number] #### [facility] (DEFAULT) [address] [place] [address] CBC w/ Auto Diffon Erythrocyte distribution width (RBC) [Ratio] 13.3 % Normal 11.5-15.0 [facility] Comment on above: Performed By: #### 7 934398, [id number], 14640757, [id number] #### [facility] (DEFAULT) [address] [place] [address] Hematocrit (Bld) [Volume fraction] 43.9 % High 33.7-40.4 [facility] Comment on above: Performed By: #### 7 474614, [id number], 27741768, [id number] #### [facility] (DEFAULT) [address] [place] [address] Hemoglobin (Bld) [Mass/Vol] 14.4 g/dL Normal 11.3-15.9 [facility] Comment on above: Performed By: #### 7 907919, [id number], 15821242, [id number] #### [facility] (DEFAULT) [address] [place] [address] Instr WBC 9.0 x10 Invalid Interpretation Code [facility] Comment on above: Performed By: #### 7 095076, [id number], 10182411, [id number] #### [facility] (DEFAULT) [address] [place] [address] Man Diff? Auto Normal [facility] Comment on above: Performed By: #### 7 929269, 7226345675, 88631079, [id number] #### [facility] (DEFAULT) [address] [place] [address] 53911 MCH (RBC) [Entitic mass] 30 pg Normal 24-34 [facility] Comment on above: Performed By: #### 7 574588, [id number], 62815837, [id number] #### [facility] (DEFAULT) [address] [place] [address] 19099 MCHC (RBC) [Mass/Vol] 33 g/dL Normal 26-37 [facility] Comment on above: Performed By: #### 7 847491, [id number], 83076597, [id number] #### [facility] (DEFAULT) [address] [place] [address] MCV (RBC) [Entitic vol] 92 fL Normal 81-100 [facility] Comment on above: Performed By: #### 7 005048, [id number], 92141293, [id number] #### [facility] (DEFAULT) [address] [place] [address] Platelet 412 x10 Normal 138-427 [facility] Comment on above: Performed By: #### 7 183216, 1986640144, 21578937, [id number] #### [facility] (DEFAULT) [address] [place] [address] Platelet mean volume (Bld) [Entitic vol] 9.7 fL Normal 6.3-10.2 [facility] Comment on above: Performed By: #### 7 034498, [id number], 63605077, [id number] #### [facility] (DEFAULT) [address] [place] [address] 57813 RBC 4.78 x10 Normal 3.70-5.30 [facility] Comment on above: Performed By: #### 7 920920, 5950213146, 45512059, [id number] #### [facility] (DEFAULT) [address] [place] [address] WBC 9.0 x10 Normal 3.5-10.5 [facility] Comment on above: Performed By: #### 7 011511, [id number], 24406561, [id number] #### [facility] (DEFAULT) [address] [place] [address] Standardon 05-04-2022 eGFR Non AA >60 Invalid Interpretation Code [facility] Comment on above: Performed By: #### 7 928204, [id number], 01011924, [id number] #### [facility] (DEFAULT) [address] [place] [address] eGFR AA >60 Invalid Interpretation Code [facility] Comment on above: Result Comment: Surgical Lead maribel Kidney disease could be indicated at eGFRs of less than 60 ml/min/1.73m2. Kidney Failure is indicated at less than 15 ml/min/1.73m2 Performed By: #### 7 990675, [id number], 22656673, [id number] #### [facility] (DEFAULT) [address] [place] [address] Albumin [Mass/Vol] 4.0 g/dL Normal 3.5-5.0 [facility] Comment on above: Performed By: #### 7 010923, 4738716110, 15422151, 0143072949 #### [facility] (DEFAULT) [address] [place] [address] Albumin/Globulin [Mass ratio] 1.4 {ratio} Normal 1.4-2.6 [facility] Comment on above: Performed By: #### 7 488442, [id number], 06026596, [id number] #### [facility] (DEFAULT) [address] [place] [address] Alk Phos 97 IU/L High 32-91 [facility] Comment on above: Performed By: #### 7 068795, 2892005251, 39616741, 2933702549 #### [facility] (DEFAULT) [address] [place] [address] ALT [Catalytic activity/Vol] 17.0 U/L Normal 14.0-54.0 [facility] Comment on above: Performed By: #### 7 861995, 7324748577, 33316459, 1098231042 #### [facility] (DEFAULT) [address] [place] [address] 85715 Anion gap [Moles/Vol] 14.0 mmol/L Normal 5.0-19.0 [facility] Comment on above: Performed By: #### 7 998937, 5714039776, 47108126, [id number] #### [facility] (DEFAULT) [address] [place] [address] 37107 AST [Catalytic activity/Vol] 23 U/L Normal 15-41 [facility] Comment on above: Performed By: #### 7 404861, [id number], 96957259, [id number] #### [facility] (DEFAULT) [address] [place] [address] 04854 Bili Total 0.7 mg/dL Normal 0.3-1.2 [facility] Comment on above: Performed By: #### 7 940263, 1385991412, 92427833, 2633058941 #### [facility] (DEFAULT) [address] [place] [address] 39820 Calcium [Mass/Vol] 9.3 mg/dL Normal 8.9-10.3 [facility] Comment on above: Performed By: #### 7 294461, 4635814057, 89310565, 5036774764 #### [facility] (DEFAULT) [address] [place] [address] 44875 Chloride [Moles/Vol] 93 mmol/L Low 101-111 [facility] Comment on above: Performed By: #### 7 723935, 6219726480, 51591704, [id number] #### [facility] (DEFAULT) [address] [place] [address] 01269 CO2 [Moles/Vol] 29 mmol/L Normal 21-32 [facility] Comment on above: Performed By: #### 7 110494, 5321254829, 90929014, [id number] #### [facility] (DEFAULT) [address] [place] [address] 94134 Creatinine [Mass/Vol] 0.76 mg/dL Normal 0.60-1.30 [facility] Comment on above: Performed By: #### 7 549151, 9495066955, 03566911, [id number] #### [facility] (DEFAULT) [address] [place] [address] 16484 Globulin (S) [Mass/Vol] 2.8 g/dL Normal 1.5-4.3 [facility] Comment on above: Performed By: #### 7 418227, 5329176499, 70177572, [id number] #### [facility] (DEFAULT) [address] [place] [address] 75876 Glucose [Mass/Vol] 169.0 mg/dL High 74.0-118.0 [facility] Comment on above: Performed By: #### 7 925998, 5598592089, 88105504, [id number] #### [facility] (DEFAULT) [address] [place] [address] 85914 Osmolality 268 mOsm/L Invalid Interpretation Code [facility] Comment on above: Performed By: #### 7 838348, 1788696000, 99946804, [id number] #### [facility] (DEFAULT) [address] [place] [address] 99160 Potassium [Moles/Vol] 4.0 mmol/L Normal 3.6-5.1 [facility] Comment on above: Performed By: #### 7 153695, 9860986071, 70965923, [id number] #### [facility] (DEFAULT) [address] [place] [address] 93162 Protein [Mass/Vol] 6.8 g/dL Normal 6.5-8.1 [facility] Comment on above: Performed By: #### 7 803460, 0944934501, 34447803, 2881086636 #### [facility] (DEFAULT) [address] [place] [address] 41191 Sodium [Moles/Vol] 132.0 mmol/L Low 136.0-144.0 [facility] Comment on above: Performed By: #### 7 895673, 6676696523, 15624381, 8011507113 #### [facility] (DEFAULT) [address] [place] [address] 64467 Urea nitrogen [Mass/Vol] 12 mg/dL Normal 8-26 [facility] Comment on above: Performed By: #### 7 398499, 6688157336, 20705819, 9385621116 #### [facility] (DEFAULT) [address] [place] [address] 44061 Urea nitrogen/Creatinine [Mass ratio] 16.0 mg/mg Normal 4.6-16.2 [facility] Comment on above: Performed By: #### 7 471096, 0783087047, 09727057, 6333930640 #### [facility] (DEFAULT) [address] [place] [address] 00324 Lipid Panel Standardon 05-04 Cholesterol [Mass/Vol] 144.0 mg/dL Normal 66.0-200.0 [facility] Comment on above: Result Comment: Sarah rable - Less than 200 mg/dL Borderline high risk - 200-239 mg/dL High risk - 240 mg/dL and over. Performed By: #### 7 077930, 8846338472, 05939639, [id number] #### [facility] (DEFAULT) [address] [place] [address] 59948 Cholesterol in HDL [Mass/Vol] 67 mg/dL Normal 40-71 [facility] Comment on above: Result Comment: High risk - <40 mg/dL. Performed By: #### 7 967898, 4818056599, 95458470, [id number] #### [facility] (DEFAULT) [address] [place] [address] 68126 Cholesterol in LDL [Mass/Vol] 54 mg/dL Normal 1-100 [facility] Comment on above: Result Comment: Opti mal - Less than 100 mg/dL Borderline high risk - 130-159 mg/dL High risk - 160-189 mg/dL. Performed By: #### 7 185775, 5038147023, 25995498, [id number] #### [facility] (DEFAULT) [address] [place] [id number] Cholesterol.total/C holesterol in HDL [Mass ratio] 2.1 {ratio} Normal 0.0-4.5 [facility] Comment on above: Performed By: #### [id number], [id number] #### [facility] (DEFAULT) [address] [place] [address] Triglyceride [Mass/Vol] 112.0 mg/dL Normal 0.0-150.0 [facility] Comment on above: Performed By: #### 7 [id number] #### [facility] (DEFAULT) [address] [place] [address] VLDL. 22 mg/dL Normal 5-40 [facility] Comment on above: Performed By: #### 7 [id number] #### [facility] (DEFAULT) [address] [place] [address] Patient Provided Health Data on 05-04-2022 Patient Provided Health Data [id number] Normal [facility] Vital Signs Date Time Vital Sign Value Performing Clinician Facility 11-10-2022 12:55-0400 Body height 152.4 cm Haylee Saucedo Other [facility] Other 11-10-2022 12:55-0400 Body mass index (BMI) [Ratio] 37.1 kg/m2 Haylee Saucedo Other [facility] Other 11-10-2022 12:55-0400 Body weight 86.18 kg Haylee Saucedo Other [facility] Other 11-10-2022 12:55-0400 Diastolic blood pressure 78 mm[Hg] Haylee Saucedo Other [facility] Other 11-10-2022 12:55-0400 Respiratory rate 18 /min Haylee Saucedo Other [facility] Other 11-10-2022 12:55-0400 SaO2% (BldA) [Mass fraction] 93 % Haylee Saucedo Other [facility] Other 11-10-2022 12:55-0400 Systolic blood pressure 120 mm[Hg] Haylee Saucedo Other [facility] Other 09-12-2022 11:00-0400 Body height 152.4 cm Jude Barlow Other [facility] Other 09-12-2022 11:00-0400 Body mass index (BMI) [Ratio] 37.1 kg/m2 Jude Barlow Other [facility] Other 09-12-2022 11:00-0400 Body temperature 97.3 [degF] Jude Barlow Other [facility] Other 09-12-2022 11:00-0400 Body weight 86.18 kg Jude Mercadoaker Other [facility] Other 09-12-2022 11:00-0400 Respiratory rate 18 /min Jude Barlow Other [facility] Other 09-12-2022 11:00-0400 SaO2% (BldA) [Mass fraction] 97 % Jude Barlow Other [facility] Other Encounters Encounter Date Encounter Type Care Provider Facility Start: 12-07-2023 End: 12-07-2023 ambulatory AMOS YOST Not Available Start: 11-02-2023 End: 11-16-2023 ambulatory MYRNA CARR [facility] Start: 08-23-2023 End: 08-23-2023 ambulatory ARIEL FRY Not Available Start: 06-07-2023 End: 02-21-2024 ambulatory AMOS YOST [facility] Start: 04-19-2023 End: 04-19-2023 ambulatory AMOS YOST Not Available Start: 12-27-2022 ambulatory Castillo Lopes acility:[facility] Start: 11-23-2022 End: 11-24-2022 ambulatory David Mummert DO Facility:[facility] Start: 11-15-2022 End: 11-23-2022 ambulatory David Mummert DO Facility:[facility] Start: 11-10-2022 End: 11-10-2022 ambulatory Haylee Saucedo Other [facility] Other Start: 11-10-2022 Office outpatient visit 15 minutes Haylee Saucedo [facility] Start: 09-14-2022 ambulatory David Mummert DO [facility] Start: 09-12-2022 End: 09-12-2022 ambulatory Jude Quimby Other [facility] Other Start: 09-12-2022 Office outpatient ne w 20 minutes Jude Barlow [facility] Start: 06-09-2022 End: 06-10-2022 ambulatory David Mummert DO Facility:[facility] Start: 2022 End: 06-03-2022 ambulatory David Mummert DO Facility:[facility] Start: 05-18-2022 End: 06-14-2022 ambulatory Monalisa Scott Facility:[facility] Start: 05-03-2022 End: 05-04-2022 ambulatory David Mummert DO Facility:[facility] Start: 05-02-2022 End: 05-03-2022 ambulatory David Mummert DO Facility:[facility] Payers Date Payer Category Payer Self-pay 2022 Unknown [id number] 2022 Unknown [id number] 1955 Unknown [id number] 2.16.8 [id number] 1953 Unknown [id number] 2.16.8 40.1.130018.3.579.2.718 1953 Unknown [id number] 2.16.8 40.1.184765.3.579.2.718 1953 Unknown [id number] 2.16.8 40.1.666232.3.579.2.718 1953 Unknown [id number] 2.16.8 40.1.787954.3.579.2.718 1953 Unknown [id number] 2.16.8 40.1.338573.3.579.2.718 1953 Unknown [id number] 2.16.8 40.1.866208.3.579.2.8 1953 Unknown [id number] 2.16.8 40.1.507886.3.579.2.1286 1953 Unknown [id number] 2.16.8 40.1.472076.3.579.2.1286 1953 Unknown [id number] 2.16.84 0.1.989018.3.579.2.9 1953 Unknown [id number] 2.16.84 0.1.840068.3.579.2.1259 1953 Unknown [id number] 2.16.840 .1.266985.3.579.2.1259 Medicare [id number] 2.1 [id number] Social History Date Type Detail Facility Unknown if ever smoked [facility] Other Sex Assigned At Sex Assigned At Bir th [facility] Other Evaluation note 11-10-2022 Note Date & [...] general. Patient verbalized understanding of treatment plan. [facility] Other Evaluation note 09-12-2022 Note Date & [...] pass out. August, Bronchitis (ICD-10 - J40) [facility] Other History general Narrative - Reported Note [...] History tubal ligation Hospitalization History See HPI [facility] Other Summary Purpose Family History No Family [...] DATE CREATED AUTHOR AUTHOR'S ORGANIZ ATION 07/08/2023 [facility] DATE CREATED AUTHOR AUTHOR'S ORGANIZ ATION 11/18/2023 [facility] DATE CREATED AUTHOR AUTHOR'S ORGANIZ ATION 12/09/2023 [facility] FOR RECORDS PERTAINING TO PATIENTS WHO ARE [...] BE BASED ON THE PRIMARY CLINICAL RECORDS. [facility] [employer] provides no warranty or guarantee of the accuracy or completeness of information in this document.
--- OUTSIDE RECORDS SUMMARY | 2024-01-23 10:35 | XMS_ITS | CCD ---
Author Organization [facility] Care Team Providers Care Time Study Technologist Name Role Phone Jude Barlow Unavailable Haylee [...] Unavailable Mummert DO, David Primary Care Unavailable Casitllo Riley Admitting Unavailab le Osvaldo Castillo Attending [...] Erythromycin; Translations: [erythromycin] Drug Allergy 3 Unknown [facility] Repository (2 sources) HYDROmorphone; Translations: [HYDROMORPHONE] Drug Allergy 3 Unknown [facility] Repository (2 sources) Nitrofurantoin; Translations: [NITROFURANTOIN] Drug Allergy 3 Unknown [facility] Repository (2 sources) HYDROmorphone; Translations: [Dilaudid] Drug Allergy [facility] Repository (2 sources) Latex; Translations: [Latex Allergy] Propensity to adverse reactions (disorder) [facility] Repository (2 sources) Nitrofurantoin; Translations: [Macrodantin] Drug Allergy [facility] Repository (1 source) Erythromycin Drug Allergy 3 [facility] Repository (1 source) HYDROmorphone Drug Allergy 3 [facility] Repository (1 source) Nitrofurantoin Drug Allergy 3 [facility] Repository (1 source) Latex; Translations: [LATEX] Propensity to adverse reactions to drug (disorder) 3 [facility] Repository Medications Current Medications Medication Drug Class(es) Dates Sig (Normalized) Sig (Original) 3 ML semaglutide 1.34 MG/ML Pen Injector [Ozempic] (2 sources) inject 1 mg by subcutaneous injection every week Ozempic (1 MG/DOSE) 4 MG/3ML INJECT 1 mg SUBCUTANEOUSLY ONCE A WEEK Subcutaneous for 84 Days Active [id number] 200 actuat albuterol 0.09 mg/actuat metered dose [...] Ayush Borges MD on 06/13/2023 3:01 PM [facility] Outside Recordson 11-24-2022 Outside Records [id number]#1.00OTGTIFF [facility] Consultation/Specialist Note on 09-13-2022 Consultation/Specia list Note [id number]#1.00[facility] Release of Informationon Release of Information [id number] [id number]#1.00[facility] Consultation/Specialist Note on 07-21-2022 Consultation/Specia list Note [id number]#1.00[facility] Coding Summaryon 06-20-2022 Coding Summary HTMLBase 64 QkmksfwcDLk1yOm+PG hlYWQ+NX0CMGXnI38a nXDjkC0AL4iIQR0BXM CWTYKEJJ9KMO8efWX7 VSumX0BpzyJh FcpddXHhVI79JIh4VH X2dPsvFHwzuZ8xsMAg X6i0ImMnRO60cQ09DE oqJAFdDcY7TcIjzeql bWFy D2zaNjPquWIhFaf+PH RhYmxlIHdpZHRoPScx DKLqHuGycAuuQE0qWi 9yZGVyLWNvbGxhcHNl OiBj m7wyTYEkPYpxYV1leK jfL9HjkFZ5KTKnp4l8 Np15fKR+TQYqYZM5fP bcKCwbr991KvKjl1tm IDM3 qECjORhwGCK3K81py6 K9YUVyIQGqRGP9eMJ8 iG2vjNxzjfwoS5DxhZ LhEzH4POZ9mYCniI0v bGln niaguH9gDkr+Q09ESU 4GLHGDIM8UDtv0B6Jy PjwvdHI+RU09JFMyCF 62nNXsqSXfe9nugCa1 JzEw BFQnRHO9iQulEGgrs8 CxVULgX15kkOIwb7J4 IGNvbGxhcHNlOyBlbX G0eE4zHXfdmhvrs3jh dzsn Quczs7mxur08nI65R9 5qEGhaWZMxXIC9FLWp DNUarMvefl1ezQ9dDw 8+JUpgl8eyo9eiiCo4 IjIw ASPomkToyEmrLNU9e9 BhRo64U2ThcIomn3Yr Tec9eg15fPIlp4B9pK C3VGvhWUXwbI3qTQtl ZnQ6 RMNmNqAxzJ96eDDmCL zdEn4ywVahwLnqWM9t DSCkzueqSMAgeN8jXK QwlBBpiRpbDL0sPTSx bjtm y245SsWfLUE0WUXnyL YiX0NaxG0vRuDtAFZy WURjS0HvmNPoWOaoD8 35ZCdlWsD5QCNzkqVl Y2Fs NCJjdRwlPwR1f3X7Ri 0Mk3RyjpnjMQT5PEpe AFKiSmD5OoXyDyS4U1 PwZag0HIXtxSjkSG9i J3Bh UGXplsepecumzZY3FH ImWHHtvZ88gVQsGNjb Wt1df8D5a068QLViGG QgwO77Fn0jfYdfBDLv dCBU bL8doywke3brvwezId SyMREaWZg2LEv1RILa vSkuSoNbTIW0ZbE5XI E7sZJepO0okIxuoxfm dG9w Oyc+A86lhP0uSVK0TL E1xfucEECvksFfDY33 GE00D1EzVqoofPAzgF U+YBSzquQziIuiVN4c YmFj j3kuk6CyBIlkQ6TrHL ShGZkcNoz5KXYfQAO5 mNH9bE8vDYDfYUcsw2 L5vQV3R4SyimQdee6m b2xs NGVtFNwwC95hpSIxo3 Y4BALptBG2NIAjjRdr PuIyrZ70Yek+PGNvbG aln7McYdqjq3rqb2wl dGg9 IjMwJSIgdmFsaWduPS T5b2KkWn04X70xIRip ZHRoPSIxNSUiIHZhbG bfbw6jyI7fZd2+PGNv bCB3 wQR1lA0cCVJzBiL6QO tjZ177IfXpdPYwMmty o5mnk7pdkEn7CdVrLK VgffHpvOgxEAO1b7Na Lz48 P29yRJdzQUStOESnIV OnJTMkmWsuep2poO3w Ii8+IT4mt3ahps68uB 48dHI+BQAaIJR4pYvr PSdw KHAngV1cRJkxVgZ7QF TvCcSvgB46gVOuZWri Ux9ikLiypAjqAY5rWF Jyoccec780EiNni3wv IDEw iROeTOaxSDT4Y04kz1 H2DFAbXQCjZAW4wGZ3 eR5onNiwuskfeVGrhP sgdmVydGljYWwtYWxp Z246 IHRvcDsnPlBhdGllbn TaHkYaTTw6Y1BqHzx8 SFZcwNotLY9kbSYfFU sdPy7zoXpadSebBV0b NTBp wmrhb048NdHwj7odML GxoIGvMSieOZL6J58c d6F7QUNwHAYzYCD6jY I8sB3qzUyielhvbLYm dDsg dmVydGljYWwtYWxpZ2 46IHRvcDsnPkJpcnRo OGLqpPO5XE28QF07iH Cnz6E8yFX2R4VaRDFq bmct tzimpCV0UOOsTPOntK 79Rz5jyHsnFl0cHPVy SEL7ZSKhdNQuW3IwrD 3aEpMjIANcKHGvU5Ij eHQt YPucV455YRmnSdA3JY ElgrZkO3LvVTMlaBdj FrR4x9D3Hx0FK6Q0TH 55TW37cWOfj9M4rRN2 J3Bh ELQiqdmpwghnlJG1AW KkUEEdmG69Ky2mvJdz Xq6lZSLzIGO4IAIuiQ LeA7NntX7yWwIsFJGs MDAw F0KxoZHtHFdtC810WI maFaA6TJAdyaSxW5Nl PCBzaObeNkF5l9U0Bh 5RIMo0OR17OJ65fDOt c3R5 mCQ7L9JgALTorqymkn rscNZ0KNDxSGGfrE78 Ml1pnNydOb5bQUBzXH I4PGTeiMXlI2YqtW1w OiAj AUCgNMZnI9CfdXWjZM bkS905HGthXiQ7NSVb jzZcS3VeRNYfrMzfZl G5d0Z2Kl2NIUToTU50 IFR5 uHZ2LP43DF48T3NsHl wvdGFibGU+PHRhYmxl IHdpZHRoPScxMDAlJy BhnXaxVR7rRw3xNFKn LWNv hHyhkYKhXrPok9yqBF HrUFtlPS2giMkoZ0Yj iZX5KBGrd5a8Jq94L6 7oS9IxjML+PGNvbCB3 aWR0 lD8iWuViAwK8RVheP3 35YcVnqCMxExcdw2ez v3parJm6QqG8FWYhdy SfiTtmMRO3b9PrOw17 Y29s IHdpZHRoPSIxNSUiIH BonObbwg9eiR1wYq0+ GAXyxCK4qPX2sT2eDx UqAsJ1JMoxM457WdVw cCIv Xfdua8omf3zlhUc2Aa IwJSIgdmFsaWduPSJ0 o3LeRe41B8NxaTnwy1 ZbFuz2bq20zBSkz9L3 bGU9 C5GvBYMbwemeuYWjxY rhTW0vJTBzkudvFREp zR5gQQGvX1i6JuQiNz J3FOljE6MyzqW4SZGt cHQg NSpsJEO7Y19bq0R2TF PxMVWlJTY3sHK2hC4a bGlnbjogbGVmdDsgdm EmfCtsIOsiSAumN170 IHRv bBgpHLFawG8cSWEznC OsrUdvCC3vTRAfyhes KdoCOcYxXJdBCx7uLH 7SAZ17TL13lPIeg7Q7 bGU9 Z2YqJTKrgvdczbfzcN Z8LZRxTDKlqX53eFEr HNqcQf7ap1I0s277YW QsQCDekP69Nn3rqFlj MTBw bPLErI9hejduj1glgx juAgHvUEDbIDq7XFz5 NQUxaSflVoRvPLQ2Sc Y7VNQ8kSKooN3uxBmi bjog uF1nNin+MDIvMTYvMT h8XWgvpUG+PHRkIHN0 iCqwADqtJDNbeS9wCQ HeV9t5QjMoIdM1BZse O3Bh ASBlvokjJz28tZ8dJq DqVkT5BNkwK3RmokG3 VJMniANuHDqrIJR5M8 5tk7N4RMAxFJJhCOC4 dGV4 aJ7kbPeohwmvwAIjrN sgdmVydGljYWwtYWxp D502JZArnNheIxT2YX hlRUNaBE71VA21rECv c3R5 sIR4P6FlLNSudiirmg akbPY9FFImKODddS50 hUClMHxwAn1zq9C6w4 99WRMtZUXvsJ35Fm9b dDog PWOmqVUUvW3uxdayi6 xvcjogIzAwMDAwMDt0 QEt1BQSptMuhFrPcXB Q1UlW8KEZ2iXJefA3r bGln xdodiV5mXtk+RkVNQU yGLX06HP36fRVbe1B8 wMA4F7PvEEWvtcuocm vcgBL0XAXjMHXzuA82 cGFk KYjoVj7qq8O6l861AW KlETWzuZ13Uv8uwYyg VUBctNAOoB0qbmqnm0 xvcjogIzAwMDAwMDt0 ZXh0 BRGlbXbrZdYeDIV0Tx Z6RVU9rJZcpS9weRiw ddhtmM3wQla+UmVjdX HdcV6nJC66jXDrrNmy bnQ8 O9PcUrhhrBI+PC90YW TdJG67sIIbsITyp5zm kKp4OcHxBQGoLCS7xF kmANpeb1YtBMYmE66i bGFw b6C5GRUvhImabLZtRf WciNG6sP5rCQzuywjq w0diqgybEhira7qcvc 48aZ24V76bHHukXJDq PSIz MSVlJSLztGtvnt0ygB 9wIi8+VYTwrWK3cCP8 tZ3mDePwXvP0GTawX3 64HyFqtMWpYubet3gy d2lk xIq6YmXzQBUsuuHdcU lhORG7m3JrEd18P76g IHdpZHRoPSIyMCUiIH HskRylvk9rsJ8oIb3+ PC9j k9isjz31wJ95rFO+PH HePBH7cNxiLHvyADXi uN9tAUwfScR6PZMeXr JueC39tHOjBMltAu5a aWdo cQgfEO2cVZUrcoout9 56NdTck7fmAOIaqAPl CSnqEQL0Z23kp5U7LP IxYVNcMOK6iIV0iI0b bGln bjogbGVmdDsgdmVydG wvOEfaFYcbF284EKVl oLhkKrHvnJSrC5scuc ZKWB4jJghyiYD+PHRk IHN0 rXlmTSkgDQTmzO9fZN JeT2k7KtYnOoU6GFxm P2UvewU5DBStoRXoJM HcvLFQvR6cbyalb8sk cjog IeLyCTBuLZb7HXi8QZ RjvQkeSfFwTNA7FpY7 DBA5eDNrjW6ddNujzr nlnG8dAgj+RklOOjwv dGQ+ LFNdMWT1cBqjELdqIU BrmB3aIAQcB2n5ZrYk GqR7WTrgI6FnqyD2OA AfsWEvGUMpzWJVnJ4u cztj k9awehdqSmQnNODrJE v5VLz1NLFkcLxtNwHe LKJ0EgM0IVF9yAJbvO 2enDdopmimoE8pFlc+ TVJO OjwvdGQ+HDJzANU6jV mzCFohKVLivL1uSQSh Y0n8SmHuPlI9UCpzS8 GxnwT6BTWikIMbHVEg dCBU yA1hnbyrf9xiptuzKq PgCUFaPUv7SVr4XCCw pNecUgHbMNA0CgV3VG E5tEWuwR6yrOtczdmm dG9w Oyc+CZQ6AWO4US48GV 66A4LuIqxwlULlcMU+ PHRhYmxlIHdpZHRoPS icUIZqCsKksHsvRS9g Ym9y ZGV (more content not included)... [facility] Consultation/Specialist Note on 06-14-2022 Consultation/Specia list Note [id number] Provider Orders [id number][facility] C[facility] Summary[facility] 05-11-2022 Coding Summary HTMLBase 64 AonxfkokXMp1hSo+PG hlYWQ+OB4XOSJdK83c yIJgyJ3PI8rSPL0BQJ MTBSGHPC3HVI2qpLU7 AXbnI1FnghRd TtaqcBIjLV82CUo4DK E2xOtcDNupsB1shLVp U4u9GyRkXX43oQ60QQ iqHAGxLaS4LeLwjpxj bWFy N3yiAiMkmWOuMvp+PH RhYmxlIHdpZHRoPScx USKiMbLoqXkuVW0zZg 9yZGVyLWNvbGxhcHNl OiBj c5pdTTIkSUolGT1hmF joG2CjeDE5FIUep0l7 Gt49xVJ+CXClGPX6jG waHNziy055UvFom5qe IDM3 kFRpMSorKCV7V98ct5 S3IRXoGSHnVOW7mFR0 wW5nkJcqanzkG5ZswD FhKaY0GKC1cIWfhD4u bGln uaubyW7zCgi+Q09ESU 0HQUBWNF7VKdr5A7Yk PjwvdHI+DV38TOAhUB 45yNZmmEEaw1eakCa6 JzEw YENoXPT2uDpoJVeao7 UkFDKzK06ppYEgl1I6 IGNvbGxhcHNlOyBlbX V4gD4qQUblematn4xf dzsn Euxej4jdvm46dO10M6 4eGQfqWHXyKBV8KLYl YLJnbYxxih1csH5eJa 8+UUqsh6lkj6mldCv2 IjIw ZRRjyrXklDqaDVC8b1 SlIt44T0IngLgeq6Ge Hrw4je63fEXdw8P3bW Y3JInhCASncC6lCQok ZnQ6 YJHdHwSgiI44xCJrJB auBx7ltWlzzKnqSS5c UKKojqxvHEQavR5sNV ImxUFojWvvUO6mOGEr bjtm c826OjYlNIU4GIBmhK ZkJ7DbdR7fJaThBWHi QVJyI2BtvLJvFNpdU1 61WDmkXjJ7EFLxkhFl Y2Fs EQJnfMizIjD5p5D6Eh 2Oc2QwqaazKXT9VFle BFMnXbN4MqFoBzQ3H6 UeRnc8MNBrlUhiTJ5u J3Bh VVXbirulahypvQM7OZ CrINVjuR71sRYeIVzr Vm1ew8J7u943IUHtZX KkjY71Pf7ejCoaEIZs dCBU rC3cgodwb3uniubxRo HaFFLvBUj3SDx4QKHg fWkgXrBrOZM1OeK6VQ R9lAPvyM8zmXgvrqnc dG9w Oyc+G42qeQ1mKRA5IC M0rspdGNXjdzSxZU55 TF43J1HuLqgieVGpdP U+IJPpqkEflPuaPU2l YmFj a0eyo5YiUVxlL3GqAT DqHBriQbo2YIKyBKK4 pLF9vC1nKFGeRWynd0 P7hCG7W6XybzQqlj5r b2xs NOJmYTqkL44tqNXnw6 Q6JWQkoXT5WLHnmHct LaNqqZ69Exw+PGNvbG kzh0DnUbddg0dmp6bb dGg9 IjMwJSIgdmFsaWduPS C7m4YkUq44L70lGHud ZHRoPSIxNSUiIHZhbG upfz3noT3sDr1+PGNv bCB3 wNJ0xU7eBCTnPzI6ZI wuX642WcKwoPKeAndg d7lwc1nwkUc3AdAbIG GrdmGglYayBZB5w6Qz Lz48 V27pZOxcCVXoQYSbAK HuZJFrdXiwbx1ugO7y Ii8+TZ5cc3jkcs42eW 48dHI+SJMpRJD9vPro PSdw WYMwxG4gMCdvCtR6HV IsTbDayB11mYKrYUai Kk8yrOwiiYcvJV9hPA Hwrviik582EwUto9dh IDEw rESgNRnxQQB2O39yj0 R1NRTyNCQeIKX6tYX3 xS2izKrynggoqXVxhB sgdmVydGljYWwtYWxp Z246 IHRvcDsnPlBhdGllbn YySmQhNPs4X7ZiUvh6 DWAwsJegBR1wlUUgAD dvZz2ubTdlxNekRX2b NTBp qzufi282NyQyg1ptMX SzcDIlDHhgRSA0O70u j4H2DIQjULJqIOV9fD F7pX0geSppeiiguPNp dDsg dmVydGljYWwtYWxpZ2 46IHRvcDsnPkJpcnRo SVOmwRQ6WF24KN04tX Qoc4U4xJS4R2MjYKDt bmct jxwjyLT0RZOgTTMueV 65Wm4coUmrFg8pYDYm TGJ6XFAypUBcD0AnqY 5qGaFxSZThNDOpS7Xo eHQt AMtgF388JUvrDyL6XP TflpEsK5HgESGtnXdf QjP0i7Y0Ko8RE5Z4RA 47OQ39yOEcn4I3iRD2 J3Bh YXFuycikldpahNM4VF JdMYJnoH66Mf4bhIex My8iSQJuRLY5STVbdA PuK1CeiE5yKmVxIOAc MDAw T3UhpGKzEDnrY750TJ yfBfB6RUTvgtSkV8Hc HXYfmBlnIiN9x1U7Zy 0NKGd6JG67CJ06jJXu c3R5 jHU8G4KfYOAvinooss rbgDW6JOMsHZStmB91 Ri3vnPpwJt5yGLNsQE P9RKKvoONzO9BrpW7x OiAj UALrRCUnE5DniNQpJX vjW911LKjzXsJ3AAAj rhGuJ0WiLQPjdBvjDe R3w6A4Mi4XBXUlHS45 IFR5 gRQ2LD25GZ34F4VrOh wvdGFibGU+PHRhYmxl IHdpZHRoPScxMDAlJy BihFzbRX8vZy1mZRIi LWNv yMrhbOPhFbQpg5afRI DuVOdyYX8czLglL9Ie bMU3HHQuv0m1Pq49S9 6qA5LdoEA+PGNvbCB3 aWR0 lA4pHcBoQlY9RDlcH9 90YvDgwDDcVjumx9ta j3maiDg6UqD2HDIdnk PwlDgkIWK3u1MqZu09 Y29s IHdpZHRoPSIxNSUiIH ZgiJfnlr1mjE9wVj8+ XQDchBI9yWQ0fL1rNe ZjBnB1EAeuR591XoXr cCIv Swood8fhf1lgvPh3Yz IwJSIgdmFsaWduPSJ0 c1HbYi75W5FsmGgty0 OsEyd1ce75bWQjm2W8 bGU9 T5XnBMOshklljFCmkT pdNQ5kWBZmqtcsRMZy aF8cDENxV9u1BdDwDx Q2QAyaO6ZxfuZ5RLVz cHQg YNwoZVW4U14vm1B9TR AoYAWcXOU7ySW6fK5r bGlnbjogbGVmdDsgdm VisZugKDmtVSoaP261 IHRv iRlqDGLpaT0pGMPuiU UdxHdvDF6eKGTcigdt KqbXAmKoBLdUVo8sNA 7RZK38PT26tSPuy8C7 bGU9 P2ZxXABagxwicuhlgU G5SLXxZAYlyK46sSOc XGdqGl3vq5L5e532MR CoOTZvtL57Zl7wtGqb MTBw qJKUuM7krrali4vpgv hmOzAgQYRgDHe4HDh0 XYKdbByrMqSqVUV9Lt N6JYD5aGInaI7tdYyk bjog jR5sVey+MDIvMTYvMT y2VCkoeAE+PHRkIHN0 sUeqZIdmYXUwtO5vQD RcB8o9AaLgFwZ6NGiw O3Bh QHScjwpoZv88nQ2gTf RnMpB6RRjsX5DaxpZ1 LWOptOIpTLhhXFX8A3 0fc9E3ASPcHGFgOIY0 dGV4 xI6njFgoeexazXVzqO sgdmVydGljYWwtYWxp X681ILGmhDyhRfB8WA ghCPYgNP49TN70hQHu c3R5 uMK8N8TsZFYfofgiye mliSR3MQCuDBYogH13 oERgULsoJn4oy3D2i3 31DUVmSVRhtB46Xi0q dDog BHGscKYHlE9pxczpm8 xvcjogIzAwMDAwMDt0 SKh8EIJomSpfDoHtCK X8CgC5JQL9sPVzcJ3v bGln mbmedX6eUqo+RkVNQU vDBS70OX91zBRat6Z1 sWJ5X6ZaUZWcwpbzxz eneVJ8AHEnYCUfbT98 cGFk HOjmIp3co1B4f374EL EyPVQwkF27Ik6wpCsq MPGilGVSoS3byozed1 xvcjogIzAwMDAwMDt0 ZXh0 CPPqrDqnAzUrSNX2Ou D6MWL5eZHfoV7rcOep fsndkP9fRov+T1A8L3 RkPjwvdHI+HR85FJYk ZT48 dTIebJKtb1kedVs3Kc GeTHKgAWY8hHtoZRjy h8JsFCJsK16sjXUxt0 M9ACJenKwycUApRfHu bXB0 oC3kILhyhruxw1fvmj xhZgpit3bwks46iV75 Y94bSLeoYPAtONQcPW JhDQNiyQqqhk1qfA8r Ii8+ MLKgpPB5nSY8pB5kMh TdInW1TZxqA802BvKk hYDpHmtsg6nlj6bvsH r6BuNxGMGckdIpiXlp PSJ0 y2DhDu04V09rMRtdDX RoPSIyMCUiIHZhbGln ey7rzS5qDj9+PC9jb2 qogd58aE32lQL+PHRk IHN0 kZuwJBurUHPgfJ3iND ioNtW4JWMwOzReeZ03 zYMzMTllCr1qdMxqpC meMJ2sQYTokihlp140 OiBi m3kvNPSmsPKzTAodIK H6I99nw1K6MGZnTDQx FXK9pYH2vB8rlBsgyf ogbGVmdDsgdmVydGlj YWwt JKtjA775YGGpvWznVx MkjYFvH1jsevXJJG9e OjwvdGQ+KKAqJEI9sJ ydXXttFATszP4lDVNg Z2h0 HlTpAzM7FZxwV9Xeiv Z8TKStuCAkBRRpuEGN uX3shgirq3clcupiCs YsTNYtSZp9AIg6UOHz aWdu KxQrKSI8HpU9JWK6tM RzcO8pyUjllabktT0w Oyc+RklOOjwvdGQ+PH DyZHG9eEnwPDicMZNj aW5n AHHzV1q0XpBdAlX6TO pmK8PumjT3BXJmyCFe MZXowSRYrL0tsleqi5 xvcjogIzAwMDAwMDt0 ZXh0 HOBlkZbuIfRzLIN3Vq P2BYU5qGQzzD8lkCju uyvbsO4bKti+TVJOOj wvdGQ+ABRaGED1fRhw PSdw WVSdrF4gDIOaF4f5Ud WxVrZ3MJvnN7SnmwV5 IGJvbGQgMTBwdCBUaW 0tqoxcj3sgrcpzZpVt MDAw DAy5ZIb8EUNexZeaZc VdIFU3BcK6IQY2nLUr vB9rvFwuxzbiaR0iXj c+CIZ5MGU0LJ57FN12 L3Ry PjwvdGFibGU+PHRhYm xlIHdpZHRoPScxMDAl UpWrdClmUJ6wYw4qUW VyLWNvbGxhcHNlOiBj b2xs YXB (more content not included)... Normal [facility] .Auto Diff 05-04-2022 Auto Attala % 8 % Normal 04-28 [facility] Comment on above: Performed By: #### 7 [id number] #### [facility] (DEFAULT) [address] [place] [address] Baso Abs# [id number] x10 Normal 0.0-0.2 [facility] Comment on above: Performed By: #### 7 [id number] #### [facility] (DEFAULT) [address] [place] [address] 95344 Basophils/100 WBC (Bld) 0.6 % Normal 0.2-2.0 [facility] Comment on above: Performed By: #### 7 [id number] #### [facility] (DEFAULT) [address] [place] [address] 24058 Eos Abs# 0.4 x10 Normal 0.0-0.4 [facility] Comment on above: Performed By: #### 7 868556, [id number], 89712900, [id number] #### [facility] (DEFAULT) [address] [place] [address] 19748 Eosinophils/100 WBC (Bld) 4.4 % High 0.9-4.0 [facility] Comment on above: Performed By: #### 7 998040, [id number], 76051754, [id number] #### [facility] (DEFAULT) [address] [place] [address] 13262 Lymph Abs# 1.5 x10 Normal 1.3-2.9 [facility] Comment on above: Performed By: #### 7 142572, [id number], 69873857, [id number] #### [facility] (DEFAULT) [address] [place] [address] 71051 Lymphocytes/100 WBC (Bld) 17 % Normal 14-48 [facility] Comment on above: Performed By: #### 7 490164, [id number], 07329983, [id number] #### [facility] (DEFAULT) [address] [place] [address] [place] Abs# 0.8 x10 Normal 0.0-0.8 [facility] Comment on above: Performed By: #### 7 479206, [id number], 98589485, [id number] #### [facility] (DEFAULT) [address] [place] [address] Neut Abs# 6.3 x10 Normal 1.5-9.2 [facility] Comment on above: Performed By: #### 7 235665, [id number], 51948075, [id number] #### [facility] (DEFAULT) [address] [place] [address] Neutrophils/100 WBC (Bld) 70 % Normal 44-88 [facility] Comment on above: Performed By: #### 7 023068, [id number], 66857036, [id number] #### [facility] (DEFAULT) [address] [place] [address] CBC w/ Auto Diffon Erythrocyte distribution width (RBC) [Ratio] 13.3 % Normal 11.5-15.0 [facility] Comment on above: Performed By: #### 7 745082, [id number], 38574488, 5699153801 #### [facility] (DEFAULT) [address] [place] [address] Hematocrit (Bld) [Volume fraction] 43.9 % High 33.7-40.4 [facility] Comment on above: Performed By: #### 7 530996, [id number], 43684734, 5332363833 #### [facility] (DEFAULT) [address] [place] [address] Hemoglobin (Bld) [Mass/Vol] 14.4 g/dL Normal 11.3-15.9 [facility] Comment on above: Performed By: #### 7 403501, [id number], 82529896, [id number] #### [facility] (DEFAULT) [address] [place] [address] Instr WBC 9.0 x10 Invalid Interpretation Code [facility] Comment on above: Performed By: #### 7 610734, [id number], 32526592, [id number] #### [facility] (DEFAULT) [address] [place] [address] Man Diff? Auto Normal [facility] Comment on above: Performed By: #### 7 826980, [id number], 75263343, [id number] #### [facility] (DEFAULT) [address] [place] [address] 58323 MCH (RBC) [Entitic mass] 30 pg Normal 24-34 [facility] Comment on above: Performed By: #### 7 852415, 1109838902, 50380118, [id number] #### [facility] (DEFAULT) [address] [place] [address] 99419 MCHC (RBC) [Mass/Vol] 33 g/dL Normal 26-37 [facility] Comment on above: Performed By: #### 7 479795, [id number], 63620622, 8473497750 #### [facility] (DEFAULT) [address] [place] [address] MCV (RBC) [Entitic vol] 92 fL Normal 81-100 [facility] Comment on above: Performed By: #### 7 940986, 1404265585, 60853429, [id number] #### [facility] (DEFAULT) [address] [place] [address] Platelet 412 x10 Normal 138-427 [facility] Comment on above: Performed By: #### 7 555426, 0935547052, 17713404, [id number] #### [facility] (DEFAULT) [address] [place] [address] Platelet mean volume (Bld) [Entitic vol] 9.7 fL Normal 6.3-10.2 [facility] Comment on above: Performed By: #### 7 159025, 7951098884, 66927850, [id number] #### [facility] (DEFAULT) [address] [place] [address] 19160 RBC 4.78 x10 Normal 3.70-5.30 [facility] Comment on above: Performed By: #### 7 786355, [id number], 36063110, 2899546114 #### [facility] (DEFAULT) [address] [place] [address] WBC 9.0 x10 Normal 3.5-10.5 [facility] Comment on above: Performed By: #### 7 074378, [id number], 31655024, [id number] #### [facility] (DEFAULT) [address] [place] [address] Standardon 05-04-2022 eGFR Non AA >60 Invalid Interpretation Code [facility] Comment on above: Performed By: #### 7 607321, [id number], 97056200, [id number] #### [facility] (DEFAULT) [address] [place] [address] eGFR AA >60 Invalid Interpretation Code [facility] Comment on above: Result Comment: Paper Feeder maribel Kidney disease could be indicated at eGFRs of less than 60 ml/min/1.73m2. Kidney Failure is indicated at less than 15 ml/min/1.73m2 Performed By: #### 7 811256, 7685528513, 42720966, [id number] #### [facility] (DEFAULT) [address] [place] [address] Albumin [Mass/Vol] 4.0 g/dL Normal 3.5-5.0 [facility] Comment on above: Performed By: #### 7 632716, 2886960708, 42225876, [id number] #### [facility] (DEFAULT) [address] [place] [address] Albumin/Globulin [Mass ratio] 1.4 {ratio} Normal 1.4-2.6 [facility] Comment on above: Performed By: #### 7 472891, [id number], 58272884, 6016228413 #### [facility] (DEFAULT) [address] [place] [address] Alk Phos 97 IU/L High 32-91 [facility] Comment on above: Performed By: #### 7 147369, 4460744889, 27718526, [id number] #### [facility] (DEFAULT) [address] [place] [address] ALT [Catalytic activity/Vol] 17.0 U/L Normal 14.0-54.0 [facility] Comment on above: Performed By: #### 7 095350, [id number], 33062806, [id number] #### [facility] (DEFAULT) [address] [place] [address] 22163 Anion gap [Moles/Vol] 14.0 mmol/L Normal 5.0-19.0 [facility] Comment on above: Performed By: #### 7 695520, 4900107220, 92857871, 3271074969 #### [facility] (DEFAULT) [address] [place] [address] 04543 AST [Catalytic activity/Vol] 23 U/L Normal 15-41 [facility] Comment on above: Performed By: #### 7 977076, 9186458381, 98394864, 7056031346 #### [facility] (DEFAULT) [address] [place] [address] 33646 Bili Total 0.7 mg/dL Normal 0.3-1.2 [facility] Comment on above: Performed By: #### 7 064358, 2860831105, 26008501, 2720194483 #### [facility] (DEFAULT) [address] [place] [address] 18801 Calcium [Mass/Vol] 9.3 mg/dL Normal 8.9-10.3 [facility] Comment on above: Performed By: #### 7 048636, 2473343056, 30351489, [id number] #### [facility] (DEFAULT) [address] [place] [address] 58666 Chloride [Moles/Vol] 93 mmol/L Low 101-111 [facility] Comment on above: Performed By: #### 7 087764, 8323444514, 00798217, 0642604605 #### [facility] (DEFAULT) [address] [place] [address] 02152 CO2 [Moles/Vol] 29 mmol/L Normal 21-32 [facility] Comment on above: Performed By: #### 7 867103, 5038188273, 42837475, 9682423859 #### [facility] (DEFAULT) [address] [place] [address] 35295 Creatinine [Mass/Vol] 0.76 mg/dL Normal 0.60-1.30 [facility] Comment on above: Performed By: #### 7 005878, 3460544731, 81402886, 5640797403 #### [facility] (DEFAULT) [address] [place] [address] 47212 Globulin (S) [Mass/Vol] 2.8 g/dL Normal 1.5-4.3 [facility] Comment on above: Performed By: #### 7 270864, 9356828289, 76486087, 1727968705 #### [facility] (DEFAULT) [address] [place] [address] 02173 Glucose [Mass/Vol] 169.0 mg/dL High 74.0-118.0 [facility] Comment on above: Performed By: #### 7 721916, 3146934088, 11528243, 8422512875 #### [facility] (DEFAULT) [address] [place] [address] 27695 Osmolality 268 mOsm/L Invalid Interpretation Code [facility] Comment on above: Performed By: #### 7 377233, [id number], 85195057, [id number] #### [facility] (DEFAULT) [address] [place] [address] 72057 Potassium [Moles/Vol] 4.0 mmol/L Normal 3.6-5.1 [facility] Comment on above: Performed By: #### 7 543111, 3432706379, 44649490, [id number] #### [facility] (DEFAULT) [address] [place] [address] 44201 Protein [Mass/Vol] 6.8 g/dL Normal 6.5-8.1 [facility] Comment on above: Performed By: #### 7 522821, 2412425035, 46583004, [id number] #### [facility] (DEFAULT) [address] [place] [address] 41018 Sodium [Moles/Vol] 132.0 mmol/L Low 136.0-144.0 [facility] Comment on above: Performed By: #### 7 615837, 5633878196, 95974873, 6744794560 #### [facility] (DEFAULT) [address] [place] [address] 96947 Urea nitrogen [Mass/Vol] 12 mg/dL Normal 8-26 [facility] Comment on above: Performed By: #### 7 486660, 4039739766, 98640500, 0368966948 #### [facility] (DEFAULT) [address] [place] [address] 45371 Urea nitrogen/Creatinine [Mass ratio] 16.0 mg/mg Normal 4.6-16.2 [facility] Comment on above: Performed By: #### 7 701210, 2032162691, 31733730, 4003266583 #### [facility] (DEFAULT) [address] [place] [address] 18180 Lipid Panel Standardon 05-04 Cholesterol [Mass/Vol] 144.0 mg/dL Normal 66.0-200.0 [facility] Comment on above: Result Comment: Sarah rable - Less than 200 mg/dL Borderline high risk - 200-239 mg/dL High risk - 240 mg/dL and over. Performed By: #### 7 818565, [id number], 63625235, [id number] #### [facility] (DEFAULT) [address] [place] [address] 94308 Cholesterol in HDL [Mass/Vol] 67 mg/dL Normal 40-71 [facility] Comment on above: Result Comment: High risk - <40 mg/dL. Performed By: #### 7 546628, 7963377010, 57316628, [id number] #### [facility] (DEFAULT) [address] [place] [id number] Cholesterol in LDL [Mass/Vol] 54 mg/dL Normal 1-100 [facility] Comment on above: Result Comment: Opti mal - Less than 100 mg/dL Borderline high risk - 130-159 mg/dL High risk - 160-189 mg/dL. Performed By: #### 7 [id number] #### [facility] (DEFAULT) [address] [place] [id number] Cholesterol.total/C holesterol in HDL [Mass ratio] 2.1 {ratio} Normal 0.0-4.5 [facility] Comment on above: Performed By: #### 7 [id number], [id number] #### [facility] (DEFAULT) [address] [place] [address] Triglyceride [Mass/Vol] 112.0 mg/dL Normal 0.0-150.0 [facility] Comment on above: Performed By: #### 7 [id number], [id number] #### [facility] (DEFAULT) [address] [place] [address] VLDL. 22 mg/dL Normal 5-40 [facility] Comment on above: Performed By: #### 7 [id number], [id number] #### [facility] (DEFAULT) [address] [place] [address] Patient Provided Health Data on 05-04-2022 Patient Provided Health Data [phone] [id number] Normal [facility] Vital Signs Date Time Vital Sign Value Performing Clinician Facility 11-10-2022 12:55-0400 Body height 152.4 cm Haylee Saucedo Other [facility] Other 11-10-2022 12:55-0400 Body mass index (BMI) [Ratio] 37.1 kg/m2 Haylee Saucedo Other [facility] Other 11-10-2022 12:55-0400 Body weight 86.18 kg Haylee Saucedo Other [facility] Other 11-10-2022 12:55-0400 Diastolic blood pressure 78 mm[Hg] Haylee Saucedo Other [facility] Other 11-10-2022 12:55-0400 Respiratory rate 18 /min Haylee Saucedo Other [facility] Other 11-10-2022 12:55-0400 SaO2% (BldA) [Mass fraction] 93 % Haylee Saucedo Other [facility] Other 11-10-2022 12:55-0400 Systolic blood pressure 120 mm[Hg] Haylee Saucedo Other [facility] Other 09-12-2022 11:00-0400 Body height 152.4 cm Jude Barlow Other [facility] Other 09-12-2022 11:00-0400 Body mass index (BMI) [Ratio] 37.1 kg/m2 Jude Barlow Other [facility] Other 09-12-2022 11:00-0400 Body temperature 97.3 [degF] Jude Barlow Other [facility] Other 09-12-2022 11:00-0400 Body weight 86.18 kg Jude Mercadoaker Other [facility] Other 09-12-2022 11:00-0400 Respiratory rate 18 /min Jude Barlow Other [facility] Other 09-12-2022 11:00-0400 SaO2% (BldA) [Mass fraction] 97 % Jude Barlow Other [facility] Other Encounters Encounter Date Encounter Type Care Provider Facility Start: 12-07-2023 End: 12-07-2023 ambulatory AMOS YOST Not Available Start: 11-02-2023 End: 11-16-[address] [facility] Start: 08-23-2023 End: 08-23-2023 ambulatory ARIEL FRY Not Available Start: 06-07-2023 End: 02-21-[address] [facility] Start: 04-19-2023 End: 04-19-2023 ambulatory AMOS YOST Not Available Start: 12-27-2022 ambulatory Castillo Lopes acility:[facility] Start: 11-23-2022 End: 11-24-2022 ambulatory David Mummert DO Facility:[facility] Start: 11-15-2022 End: 11-23-2022 ambulatory David Mummert DO Facility:[facility] Start: 11-10-2022 End: 11-10-2022 ambulatory Haylee Saucedo Other [facility] Other Start: 11-10-2022 Office outpatient visit 15 minutes Haylee Saucedo [facility] Start: 09-14-2022 ambulatory David Mummert DO [facility] Start: 09-12-2022 End: 09-12-2022 ambulatory Jude Hospers Other [facility] Other Start: 09-12-2022 Office outpatient ne w 20 minutes Jude Barlow [facility] Start: 06-09-2022 End: 06-10-2022 ambulatory David Mummert DO Facility:[facility] Start: 2022 End: 06-03-2022 ambulatory David Mummert DO Facility:[facility] Start: 05-18-2022 End: 06-14-2022 ambulatory Monalisa Scott Facility:[facility] Start: 05-03-2022 End: 05-04-2022 ambulatory David Mummert DO Facility:[facility] Start: 05-02-2022 End: 05-03-2022 ambulatory David Mummert DO Facility:[facility] Payers Date Payer Category Payer Self-pay 2022 Unknown [id number] 2022 Unknown [id number] 1955 Unknown [id number] 2.16.8 [id number] 1955 Unknown [id number] 2.16.8 40.1.193402.3.579.2.718 1955 Unknown [id number] 2.16.8 40.1.771255.3.579.2.718 1955 Unknown [id number] 2.16.8 40.1.780537.3.579.2.718 1955 Unknown [id number] 2.16.8 40.1.873923.3.579.2.718 1955 Unknown [id number] 2.16.8 40.1.261596.3.579.2.718 1955 Unknown [id number] 2.16.8 40.1.602369.3.579.2.8 1955 Unknown [id number] 2.16.8 40.1.344995.3.579.2.1286 1955 Unknown [id number] 2.16.8 40.1.592742.3.579.2.1286 1953 Unknown [id number] 2.16.84 0.1.920335.3.579.2.9 1955 Unknown [id number] 2.16.84 0.1.085849.3.579.2.1259 1955 Unknown [id number] 2.16.840 .[id number] Medicare [id number] 2.1 [id number] Social History Date Type Detail Facility Unknown if ever smoked [facility] Other Sex Assigned At Sex Assigned At Bir th [facility] Other Evaluation note 11-10-2022 Note Date & [...] general. Patient verbalized understanding of treatment plan. [facility] Other Evaluation note 09-12-2022 Note Date & [...] pass out. August, Bronchitis (ICD-10 - J40) [facility] Other History general Narrative - Reported Note [...] History tubal ligation Hospitalization History See HPI [facility] Other Summary Purpose Family History No Family [...] DATE CREATED AUTHOR AUTHOR'S ORGANIZ ATION 07/08/2023 [facility] DATE CREATED AUTHOR AUTHOR'S ORGANIZ ATION 11/18/2023 [facility] DATE CREATED AUTHOR AUTHOR'S ORGANIZ ATION 12/09/2023 [facility] [place] FOR RECORDS PERTAINING TO PATIENTS WHO ARE [...] BE BASED ON THE PRIMARY CLINICAL RECORDS. [facility] [employer] provides no warranty or guarantee of the accuracy or completeness of information in this document.
[2024-01-23 10:43] LABS: Basophils Absolute Auto 0.1 10^3/uL (0.0-0.1); Basophils Percent Auto 0.7 % (0.2-2.0); Eosinophils Absolute Auto 0.4 10^3/uL (0.0-0.7); Eosinophils Percent Auto 3.7 % (0.9-7.0); Hematocrit 43.2 % (36.0-48.0); Hemoglobin 14.4 g/dL (12.0-16.0); Immature Granulocytes Abs Auto 0.05 10^3/uL (0.00-0.03); Immature Granulocytes Pct Auto 0.5 % (0.0-0.5); Lymphocytes Percent Auto 18.2 % (20.5-60.0); Mean Corpuscular HGB Conc 33.3 g/dL (29.9-35.2); Mean Corpuscular Hemoglobin 30.5 pg (26.7-34.0); Mean Corpuscular Volume 91.5 fL (81.0-99.0); Mean Platelet Volume 9.5 fL (9.5-13.5); Monocytes Absolute Auto 1.1 10^3/uL (0.3-0.8); Monocytes Percent Auto 9.9 % (1.7-12.0); Neutrophils Absolute Auto 7.3 10^3/uL (1.4-6.5); Platelet Count 363 10^3/uL (150-450); Red Blood Count 4.72 10^6/uL (4.20-5.40); Red Cell Distribution Width 12.7 % (11.0-15.0); White Blood Count 10.9 10^3/uL (4.0-11.0)
[2024-01-23 12:41] LABS: Alanine Aminotransferase 26 U/L (14-59); Albumin Globulin Ratio 0.9; Albumin Level 3.4 g/dL (3.4-5.0); Alkaline Phosphatase 130 U/L (46-116); Anion Gap 11.2; Aspartate Amino Transferase 21 U/L (15-37); BUN Creatinine Ratio 17.5; Bilirubin Total 0.5 mg/dL (0.2-1.0); Calcium 9.6 mg/dL (8.5-10.1); Chloride 93 mmol/L (98-107); Estimated GFR (African America >60 (>=60 mL/min/1.73m^2); Estimated GFR (Non-African Ame 57 (>=60 mL/min/1.73m^2); Globulin 3.8 g/dL; Glucose 123 mg/dL (74-106); Potassium 3.2 mmol/L (3.5-5.1); Sodium 133 mmol/L (136-145); Total Protein 7.2 g/dL (6.4-8.2)
== END 2024-01-23 10:28 | disposition home or self-care (01) ==
LOC: LAB 10:27
PROVIDERS: PCP Internal Medicine; Visit Provider Internal Medicine Hematology & Oncology
DX: C91.10 Chronic lymphocytic leukemia of B-cell type not having achieved remission (principal)
CPT/HCPCS: 36415; 80053; 85025

== ENCOUNTER 2024-07-26 13:44 | Outpatient (OUT) | payer MEDICARE, SELFPAY ==
--- NOTE | 2024-07-26 13:47 | MM_ITS ---
Patient Name: LASHON MARTINEZ MR#: [id number] : 1955 Exam Date: 07/26/2024 Ordering Doctor: DR ARIEL MINER RADIOLOGY REPORT PROCEDURE: MM TOMOSYNTHESIS SCREENING BI COMPARISON: MG MAMM SCREEN JIHAN W CAD, 12/21/2022. INDICATIONS: Screening Calculator Name NCI Breast Cancer Risk Assessment Tool 5 Year Breast Cancer Risk 1.90% Lifetime Breast Cancer Risk 5.40% Personal Breast Cancer No Personal Ovarian Cancer No Treatments None Family Cancers Mother with ovarian cancer at age 40; Father with esophageal cancer at age 45. LOCATION: [facility] BREAST COMPOSITION: There are scattered areas of fibroglandular density. FINDINGS: DIAGNOSTIC CATEGORY 1--NEGATIVE. RIGHT BREAST: No significant suspicious finding. LEFT BREAST: No significant suspicious finding. RECOMMENDATIONS: ROUTINE MAMMOGRAM AND CLINICAL EVALUATION IN 12 MONTHS. PLEASE NOTE: A NORMAL MAMMOGRAM DOES NOT EXCLUDE THE POSSIBILITY OF BREAST CANCER. A CLINICALLY SUSPICIOUS PALPABLE LUMP SHOULD BE BIOPSIED. Dictated by: Jose Alberto Santana DO on 07/29/2024 at 15:45 Approved by: Jose Alberto Santana DO on 07/29/2024 at 15:46
--- OUTSIDE RECORDS SUMMARY | 2024-07-26 14:04 | XMS_ITS | CCD ---
Author Organization [facility] [place] [facility] Care Team Providers Care Outbound Supervisor Name Role Phone Jude Barlow Unavailable Haylee Saucedo Unavailable Mummert DO, David Attending Unavailable Mummert DO, David Admitting Unavailable Mummert DO, David Primary Care Unavailable Mummert DO, David Primary Care Unavailable Tyler, Monalisa Attending Unavailable Tyler, Monalisa Admitting Unavailable Mummert DO, David Referring Unavailable Tyler, Monalisa Attending Unavailable Tyler, Monalisa Admitting Unavailable Mummert DO, David Primary Care Unavailable Castillo Riley Admitting Unavailab Castillo Menard Attending Unavailab Olvin Brandt MD Primary Care Provider [phone] Olvin Kamara MD Unavailable SEVERO CARR Attending Unavailable SEVERO CARR Referring Unavailable OLVIN KAMARA Primary Care Unavailable SEVERO CARR Attending Unavailable SEVERO CARR Referring Unavailable OLVIN KAMARA Primary Care Unavailable OLVIN KAMARA Referring Unavailable OLVIN KAMARA Primary Care Unavailable Olvin Kamara MD Unavailable Olvin Kamara MD Primary Care Provider [phone] Olvin Kamara MD Unavailable [phone] KRISTINA FRY Attending Unavailable KRISTINA FRY Attending Unavailable OLVIN KAMARA Attending Unavailable Allergies Allergy Classification Reported Allergen(s) Allergy Type Date of Onset Reaction(s) Facility (20 sources) Erythromycin; Translations: [erythromycin] Drug Allergy 09-19-19 Unknown [facility] Repository (20 sources) HYDROmorphone; Translations: [HYDROMORPHONE] Drug Allergy 09-19-19 Unknown [facility] (20 sources) Nitrofurantoin; Translations: [NITROFURANTOIN] Drug Allergy 09-19-19 Unknown [employer] Other (1 source) HYDROmorphone; Translations: [Dilaudid] Drug Allergy [facility] Repository (1 source) Latex; Translations: [Latex Allergy] Propensity to adverse reactions (disorder) [facility] Repository (1 source) Nitrofurantoin; Translations: [Macrodantin] Drug Allergy [facility] Repository (1 source) Erythromycin Drug Allergy 11-11-19 [facility] Repository (1 source) HYDROmorphone Drug Allergy 11-11-19 [facility] Repository (1 source) Nitrofurantoin Drug Allergy 11-11-19 [facility] Repository (18 sources) gabapentin Drug Allergy 08-23-19 Unknown [facility] [employer] Work Phone: (19 sources) Latex; Translations: [LATEX] Propensity to adverse reactions 09-19-19 [facility] (3 sources) Latex Propensity to adverse reactions to drug 09-19-19 [facility] Medications Current Medications Medication Drug Class(es) Dates Sig (Normalized) Sig (Original) 3 ML semaglutide 1.34 MG/ML Pen Injector [Ozempic] (2 sources) inject 1 mg by subcutaneous injection every week Ozempic (1 MG/DOSE) 4 MG/3ML INJECT 1 mg SUBCUTANEOUSLY ONCE A WEEK Subcutaneous for 84 Days Active [id number] 200 actuat albuterol 0.09 mg/actuat metered dose inhaler (20 sources) beta2-Adrenergic Agonist Start: 02-12-2024 take 2 puff(s) by inhalation every four hours for wheezing albuterol HFA (ProAir HFA) 90 mcg/act inhaler Indications: Non-seasonal allergic rhinitis due to other allergic trigger Inhale 2 puffs every 4 (four) hours if needed for wheezing or shortness of breath 18 g 3 02/12/2024 Active take 2 puff(s) by in halation every four hours for wheezing albuterol HFA (ProAir HFA) 90 mcg/act inhaler Inhale 2 puffs every 4 (four) hours if needed for wheezing or shortness of breath. Active albuterol (PROVE NTIL HFA;VENTOLIN HFA) 90 mcg/actuation inhaler Active Albuterol Sulfat e HFA 108 (90 Base) MCG/ACT Inhalation for 17 Days Active apixaban 5 mg oral tablet (20 sources) Factor Xa Inhibitor Start: 07-25-2023 take 1 tablet by mouth in the morning Eliquis 5 MG tablet Indications: Paroxysmal atrial fibrillation (CMS/HCC) , Personal history of PE (pulmonary embolism) TAKE 1 TABLET BY MOUTH IN THE MORNING then TAKE 1 TABLET BY MOUTH BEFORE bedtime 180 tablet 3 07/25/2023 Active atorvastatin 20 mg oral tablet (20 sources) HMG-CoA Reductase Inhibitor Start: 10-23-2023 take 1 tablet by mouth in the morning atorvastatin (Lipitor) 20 MG tablet Indications: Mixed hyperlipidemia (CMS/HCC) TAKE 1 TABLET BY MOUTH IN THE MORNING 100 tablet 3 10/23/2023 Active azelastine hydrochloride 0.137 mg/actuat metered dose nasal spray (4 sources) Histamine-1 Receptor Antagonist Start: 06-20-2024 End: 07-20-2024 take 1 spray(s) nasal route in the morning Azelastine HCl 137 MCG/SPRAY solution Indications: Non-seasonal allergic rhinitis due to other allergic trigger Administer 1 spray into affected nostril(s) in the morning and 1 spray before bedtime. 30 mL 5 06/20/2024 07/20/2024 Active azithromycin 250 mg oral tablet (4 sources) Macrolide Antimicrobial Start: 09-12-2022 Azithromycin 250 MG 2 tablets on the first day, then 1 tablet daily for 4 days Orally Once a day for 5 day(s) August, Active Zithromax Z-Alta 250 MG as directed Orally as directed for 5 days Active benzonatate 200 mg oral capsule (2 sources) Non-narcotic Antitussive Start: 09-12-2022 take 1 capsule by mouth three times daily as needed for cough Benzonatate 200 MG 1 capsule Orally Three times a day as needed for cough for 7 day(s) August, Active betamethasone 0.0005 mg/mg topical ointment (18 sources) Corticosteroid Start: 02-12-2024 betamethasone dipropionate (Diprolene) 0.05 % ointment Indications: Psoriasis Apply 1 application topically in the morning and 1 application before bedtime. 15 g 5 02/12/2024 Active Start: 08-23-2023 betamethasone dipropionate (Diprolene) 0.05 % ointment Indications: Psoriasis ([facility]) Apply 1 application topically in the morning and 1 application before bedtime. 15 g 5 08/23/2023 Active Blood Glucose Monitoring Suppl (FreeStyle Lite) device (4 sources) Start: 06-20-2024 Blood Glucose Monitoring Suppl (FreeStyle Lite) device Indications: Type 2 diabetes mellitus with diabetic polyneuropathy, without long-term current use of insulin ([facility]) Use as instructed 1 each 06/20/2024 Active cefdinir 300 mg oral capsule (2 sources) Cephalosporin Antibacterial Start: 07-08-2024 End: 07-15-2024 take 1 capsule by mouth in the morning cefdinir (Omnicef) 300 MG capsule Indications: Acute non-recurrent sinusitis, unspecified location Take 1 capsule (300 mg) by mouth in the morning and 1 capsule (300 mg) before bedtime. Do all this for 7 days. 14 capsule 07/08/2024 07/15/2024 Active Start: 05-20-2024 End: 05-27-2024 take 1 capsule by mouth in the morning cefdinir (Omnicef) 300 MG capsule Indications: Acute non-recurrent sinusitis, unspecified location Take 1 capsule (300 mg) by mouth in the morning and 1 capsule (300 mg) before bedtime. Do all this for 7 days. 14 capsule 05/20/2024 05/27/2024 Active cephalexin 500 mg oral capsule (4 sources) Cephalosporin Antibacterial Start: 01-19-2024 take 1 capsule by mouth in the morning, then take 1 capsule by mouth in the evening, then take 1 capsule by mouth at bedtime cephalexin (Keflex) 500 MG capsule Take 500 mg by mouth in the morning and 500 mg in the evening and 500 mg before bedtime. 01/19/2024 Active diclofenac sodium 0.01 mg/mg topical gel (2 sources) Nonsteroidal Anti-inflammatory Drug diclofenac sodium (VOLTAREN) 1 % gel Active DULoxetine 60 mg delayed release oral capsule (20 sources) Serotonin and Norepinephrine Reuptake Inhibitor Start: 08-16-2022 take 1 capsule by mouth in the morning DULoxetine (Cymbalta) [address] capsule Take 60 mg by mouth in the morning. 08/16/2022 Active fluticasone propionate 0.05 mg/actuat metered dose nasal spray (20 sources) Corticosteroid Start: 02-02-2023 take 1 spray(s) nasal route in the morning fluticasone (Flonase Allergy Relief) 50 MCG/ACT nasal spray Indications: Seasonal allergies Administer 1 spray into each nostril in the morning. 16 g 3 02/02/2023 Active Start: 09-12-2022 take 1 spray(s) nasa l route twice daily Fluticasone Propionate 50 MCG/ACT 1 spray in each nostril Nasally Twice a day for 14 days August, Active take 1 spray(s) nasa l route twice daily fluticasone propionate (FLONASE) 50 mcg/actuation nasal spray instill 1 (ONE) spray IN EACH NOSTRIL TWICE DAILY for 14 days Active hydroCHLOROthiazide 25 mg / triamterene 37.5 mg oral tablet (20 sources) Potassium-sparing Diuretic, Thiazide Diuretic Start: 10-23-2023 take 1 tablet by mouth in the morning triamterene-hydrochlorothiazide (Maxzide-25) 37.5-25 MG tablet Indications: Benign hypertension (CMS/HCC) TAKE 1 TABLET BY MOUTH IN THE MORNING 100 tablet 3 10/23/2023 Active Start: 10-31-2022 take 1 tablet by wilfred th once in the morning triamterene-hydroCHLOROthiazid (MAXZIDE- 25) 37.5-25 mg per tablet Take 1 tablet by mouth in the morning. 10/31/2022 Active loratadine 10 mg oral tablet (18 sources) Start: 09-04-2023 End: 09-03-2024 take 1 tablet by mouth once daily loratadine (Claritin) 10 MG tablet Indications: Non-seasonal allergic rhinitis due to other allergic trigger Take 1 tablet (10 mg) by mouth Daily 30 tablet 11 09/04/2023 09/03/2024 Active meclizine hydrochloride 25 mg oral tablet (4 sources) Antiemetic Start: 06-20-2024 take 1 tablet by mouth once daily as needed for dizziness meclizine (Antivert) 25 MG tablet Indications: Vertigo Take 1 tablet (25 mg) by mouth Daily as needed for dizziness 30 tablet 5 06/20/2024 Active melatonin 3 mg oral capsule (6 sources) take 2 capsules by mouth at bedtime Melatonin 3 MG capsule Take 2 capsules by mouth at bedtime Active melatonin 10 mg tablet,disintegrating Active metFORMIN hydrochloride 500 mg oral tablet (20 sources) Biguanide Start: 12-14-2022 End: 01-19-2024 take 1 tablet by mouth in the morning, then take 1 tablet by mouth in the evening, then take 1 tablet by mouth at bedtime metFORMIN (Glucophage) 500 MG tablet Indications: Type 2 diabetes mellitus with diabetic polyneuropathy, without long-term current use of insulin (CMS/HCC) Take 1 tablet (500 mg) by mouth in the morning and 1 tablet (500 mg) in the evening and 1 tablet (500 mg) before bedtime. Take with food.. 300 tablet 3 01/19/2024 Active methylPREDNISolone 4 mg oral tablet (3 sources) Corticosteroid Start: 11-10-2022 take 0.5 tablet by mouth once daily at breakfast, then take 0.5 tablet by mouth once daily at dinner methylPREDNISolone (MEDROL, ALTA,) 4 mg tablet TAKE BY MOUTH DIRECTED ON PACKAGE; take ONE-HALF DAILY dose WITH BREAKFAST and ONE-HALF the DAILY dose WITH dinner 11/10/2022 Active metoprolol tartrate 25 mg oral tablet (20 sources) beta-Adrenergic Jacinto Start: 08-30-2022 take 1 tablet by mouth in the morning metoprolol tartrate (Lopressor) 25 MG tablet Take 25 mg by mouth in the morning and 25 mg before bedtime. 08/30/2022 Active montelukast 10 mg oral tablet (20 sources) Leukotriene Receptor Antagonist Start: 10-23-2023 take 1 tablet by mouth at bedtime montelukast (Singulair) 10 MG tablet Indications: Allergy, sequela TAKE 1 TABLET BY MOUTH AT BEDTIME 100 tablet 4 10/23/2023 Active Multiple Vitamin (multivitamin) capsule (4 sources) take 1 capsule by mouth once daily Multiple Vitamin (multivitamin) capsule Take 1 capsule by mouth Daily Active nortriptyline 25 mg oral capsule (20 sources) Tricyclic Antidepressant Start: 10-31-2022 take 1 capsule by mouth at bedtime nortriptyline (Pamelor) 25 MG capsule Indications: Neuropathy TAKE 1 CAPSULE BY MOUTH AT BEDTIME 100 capsule 3 10/23/2023 Active nystatin [id number] unt/ml topical cream (18 sources) Polyene Antifungal Start: 07-31-2023 nystatin (Mycostatin) cream Indications: Non-seasonal allergic rhinitis due to other allergic trigger Apply 1 application topically in the morning and 1 application before bedtime. 24 g 1 07/31/2023 Active OZEMPIC 1 mg/dose (4 mg/3 mL) pen injector (2 sources) inject 1 mg by subcutaneous injection every week OZEMPIC 1 mg/dose (4 mg/3 mL) pen injector INJECT 1 mg SUBCUTANEOUSLY ONCE A WEEK Active Ozempic, 1 MG/DOSE, 4 MG/3ML solution pen-injector (12 sources) Start: 08-24-2022 inject 1 mg by subcutaneous injection every week Ozempic, 1 MG/DOSE, 4 MG/3ML solution pen-injector Inject 1 mg under the skin 1 (one) time per week. 08/24/2022 Active potassium 99 mg extended release oral tablet (4 sources) take 1 tablet by mouth once daily Potassium 99 MG tablet Take 1 tablet by mouth Daily Active pregabalin 100 mg oral capsule (20 sources) Start: 06-28-2024 take 1 capsule by mouth in the morning, then take 1 capsule by mouth in the evening, then take 1 capsule by mouth at bedtime pregabalin (Lyrica) 100 MG capsule Indications: Type 2 diabetes mellitus with diabetic polyneuropathy, without long-term current use of insulin (CMS/HCC) Take 1 capsule (100 mg) by mouth in the morning and 1 capsule (100 mg) in the evening and 1 capsule (100 mg) before bedtime. 270 capsule 06/28/2024 Active Start: 09-29-2023 End: 03-26-2024 take 1 capsule by mouth in the morning, then take 1 capsule by mouth in the evening, then take 1 capsule by mouth at bedtime pregabalin (Lyrica) 100 MG capsule Indications: Type 2 diabetes mellitus with diabetic polyneuropathy, without long-term current use of insulin (CMS/HCC) Take 1 capsule (100 mg) by mouth in the morning and 1 capsule (100 mg) in the evening and 1 capsule (100 mg) before bedtime. 270 capsule 03/26/2024 Active semaglutide (Ozempic, 1 MG/DOSE,) 4 MG/3ML solution pen-injector (6 sources) Start: 04-29-2024 inject 1 mg by subcutaneous injection every week semaglutide (Ozempic, 1 MG/DOSE,) 4 MG/3ML solution pen-injector Indications: Type 2 diabetes mellitus with diabetic polyneuropathy, without long-term current use of insulin ([facility]) Inject 1 mg under the skin 1 (one) time per week 3 mL 11 04/29/2024 Active traMADol hydrochloride 50 mg oral tablet (20 sources) Opioid Agonist Start: 12-29-2022 End: 07-17-2024 take 1 tablet by mouth every six hours for pain traMADol (Ultram) 50 MG tablet Indications: Neuropathy Take 1 tablet (50 mg) by mouth every 6 (six) hours if needed for severe pain 90 tablet 1 07/17/2024 Active traMADol HCl 50 MG Oral for 30 Days Active triamcinolone acetonide 0.001 mg/mg topical ointment (20 sources) Corticosteroid Start: 12-22-2022 triamcinolone (Kenalog) 0.1 % ointment Indications: Rash APPLY TO THE AFFECTED AREA(S) EXTERNALLY THREE TIMES DAILY FOR 7 DAYS 30 g 2 12/22/2022 Active Start: 12-22-2022 triamcinolone (KENALOG) 0.1 % ointment APPLY TO THE AFFECTED AREA(S) EXTERNALLY THREE TIMES DAILY FOR 7 DAYS 12/22/2022 Active Start: 11-10-2022 Triamcinolone Acetonide 0.1 % 1 application Externally TID for 7 days Oct, Active Completed/Discontinued Medications Medication Drug Class(es) Dates Sig (Normalized) Sig (Original) cyclobenzaprine hydrochloride 10 mg oral tablet (17 sources) Muscle Relaxant Start: 12-07-2023 End: 06-20-2024 take 1 tablet by mouth three times daily as needed for muscle spasms cyclobenzaprine (Flexeril) 10 MG tablet Indications: Lumbar paraspinal muscle spasm TAKE 1 TABLET BY MOUTH THREE TIMES DAILY NEEDED FOR MUSCLE SPASMS up to 20 days 30 tablet 1 01/01/2024 06/20/2024 Discontinued (Therapy completed) Problems Active Problems Problem Classification Problem Date Documented Date Episodic/Chronic Administrative/social admission (4 sources) Patient encounter status; Translations: [Other specified counseling] 06-20-2024 Episodic Anxiety disorders (20 sources) Mixed anxiety and depressive disorder; Translations: [Other specified anxiety disorders] Onset: 09-18-2022 09-18-2022 Chronic Cardiac dysrhythmias (20 sources) Paroxysmal atrial fibrillation; Translations: [Paroxysmal atrial fibrillation] Onset: 09-18-2022 09-18-2022 Chronic Chronic obstructive pulmonary disease and bronchiectasis (1 source) Bronchitis, not specified as acute or chronic Episodic Conditions associated with dizziness or vertigo (6 sources) Vertigo; Translations: [Dizziness and giddiness] Onset: 06-20-2024 06-20-2024 Episodic Diabetes mellitus with complications (20 sources) Polyneuropathy due to type 2 diabetes mellitus; Translations: [Type 2 diabetes mellitus with diabetic polyneuropathy] Onset: 09-19-2022 01-19-2024 Chronic Disorders of lipid metabolism (20 sources) Hyperlipidemia; Translations: [Hyperlipidemia, unspecified] Onset: 09-18-2022 09-18-2022 Chronic Essential hypertension (20 sources) Benign hypertension; Translations: [Essential (primary) hypertension] Onset: 09-18-2022 09-18-2022 Chronic Immunizations and screening for infectious disease (2 sources) Vaccination needed; Translations: [Encounter for immunization] 06-20-2024 Episodic Leukemias (20 sources) Chronic lymphoid leukemia, disease; Translations: [Chronic lymphocytic leukemia of B-cell type not having achieved remission] Onset: 09-18-2022 09-18-2022 Chronic Menopausal disorders (1 source) Other primary ovarian failure; Translations: [Other primary ovarian failure] Onset: 06-07-2023 Chronic Miscellaneous mental health disorders (20 sources) Primary insomnia; Translations: [Primary insomnia] Onset: 09-18-2022 09-18-2022 Chronic Other inflammatory condition of skin (20 sources) Psoriasis; Translations: [Psoriasis, unspecified] Onset: 08-23-2023 08-23-2023 Chronic Other nervous system disorders (20 sources) Neuropathy; Translations: [Polyneuropathy, unspecified] Onset: 09-18-2022 09-18-2022 Chronic Other nutritional; endocrine; and metabolic disorders (6 sources) Severe obesity; Translations: [Class 2 severe obesity due to excess calories with serious comorbidity and body mass index (BMI) of 37.0 to 37.9 in adult ([facility])] Onset: 06-20-2024 06-20-2024 Chronic Other upper respiratory disease (20 sources) Allergic rhinitis; Translations: [Other allergic rhinitis] Onset: 04-19-2023 04-19-2023 Chronic Other upper respiratory infections (1 source) Acute sinusitis; Translations: [Acute sinusitis, unspecified] 07-08-2024 Episodic Pulmonary heart disease (20 sources) Chronic pulmonary embolism; Translations: [Chronic pulmonary embolism] Onset: 01-20-2023 08-23-2023 Chronic Spondylosis; intervertebral disc disorders; other back problems (3 sources) Spasm of muscle of lower back; Translations: [Muscle spasm of back] 12-30-2023 Episodic Past or Other Problems Problem Classification Problem Date Documented Da te Episodic/Chronic Acute and unspecified renal failure (18 sources) Acute renal failure syndrome; Translations: [Acute kidney failure, unspecified] Onset: 08-19-2020 Resolved: 06-20-2024 08-23-2023 Episodic Allergic reactions (20 sources) Dermatitis, unspecified; Translations: [Allergy to erythromycin] Onset: 10-15-2020 Episodic Lymphadenitis (1 source) Lymphadenopathy; Translations: [Generalized enlarged lymph nodes] 01-25-2024 Episodic Mood disorders (4 sources) Mood disorders Onset: 06-20-2024 06-20-2024 Pulmonary heart disease (20 sources) H/O: pulmonary embolus; Translations: [Personal history of pulmonary embolism] Onset: 09-18-2022 09-18-2022 Episodic Viral infection (1 source) COVID-19 Results Test Name Value Interpretation Reference Range Facility COMPREHENSIVE METABOLIC PANE [facility] 06-21-2024 Albumin [Mass/Vol] 4.3 g/dL Normal 3.6-5.1 [facility] Comment on above: Order Comment: COLLE CTION KIT GIVEN TO PATIENT. PATIENT ADVISED TO RETURN. Performed By: #### [id number] #### [facility] [address], [address] [place] [id number] [place] Counselor: Ankit San MD Albumin/Globulin [Mass ratio] 1.7 {ratio} Normal 1.0-2.5 [facility] Comment on above: Order Comment: COLLE CTION KIT GIVEN TO PATIENT. PATIENT ADVISED TO RETURN. Performed By: #### 1 [id number] #### [facility] [address], [address] [place] [address] [place] Counselor: Ankit San MD ALP [Catalytic activity/Vol] 116 U/L Normal 37-153 [facility] Comment on above: Order Comment: COLLE CTION KIT GIVEN TO PATIENT. PATIENT ADVISED TO RETURN. Performed By: #### 1 [id number] #### [facility] [place] [address] [place] Counselor: Ankit San MD ALT [Catalytic activity/Vol] 14 U/L Normal 6-29 [facility] Comment on above: Order Comment: COLLE CTION KIT GIVEN TO PATIENT. PATIENT ADVISED TO RETURN. Performed By: #### 1 [id number] #### [facility] [place] [address] [place] Counselor: Ankit San MD AST [Catalytic activity/Vol] 18 U/L Normal 10-35 [facility] Comment on above: Order Comment: COLLE CTION KIT GIVEN TO PATIENT. PATIENT ADVISED TO RETURN. Performed By: #### 1 [id number] #### [facility] [address], [address] [place] [address] [place] Counselor: Ankit San MD Bilirubin [Mass/Vol] 0.4 mg/dL Normal 0.2-1.2 [facility] Comment on above: Order Comment: COLLE CTION KIT GIVEN TO PATIENT. PATIENT ADVISED TO RETURN. Performed By: #### 1 [id number] #### [facility] [place] [address] [place] Counselor: Ankit San MD BUN/CREATININE RATIO SEE NOTE: Normal 6-22 [facility] Comment on above: Order Comment: COLLE CTION KIT GIVEN TO PATIENT. PATIENT ADVISED TO RETURN. Result Comment: Not Reported: BUN and Creatinine are within reference range. Performed By: #### 1 [id number] #### [facility] [address], [address] [place] [address] [place] Counselor: Ankit San MD Calcium [Mass/Vol] 9.2 mg/dL Normal 8.6-10.4 [facility] Comment on above: Order Comment: COLLE CTION KIT GIVEN TO PATIENT. PATIENT ADVISED TO RETURN. Performed By: #### 1 [id number] #### [facility] [address], [address] [place] [address] [place] Counselor: Ankit San MD Chloride [Moles/Vol] 93 mmol/L Low 98-110 [facility] Comment on above: Order Comment: COLLE CTION KIT GIVEN TO PATIENT. PATIENT ADVISED TO RETURN. Performed By: #### 1 [id number] #### [facility] [address], [address] [place] [address] [place] Counselor: Ankit San MD CO2 [Moles/Vol] 35 mmol/L High 20-32 [facility] Comment on above: Order Comment: COLLE CTION KIT GIVEN TO PATIENT. PATIENT ADVISED TO RETURN. Performed By: #### 1 1 #### [facility] [address], [address] [place] [address] [place] Counselor: Ankit San MD Creatinine [Mass/Vol] 0.73 mg/dL Normal 0.60-1.00 [facility] Comment on above: Order Comment: COLLE CTION KIT GIVEN TO PATIENT. PATIENT ADVISED TO RETURN. Performed By: #### 1 1 #### [facility] [place] [address] [place] Counselor: Ankit San MD GFR/1.73 sq M.predicted among non-blacks MDRD (S/P/Bld) [Vol rate/Area] 88 mL/min/{1.73_m2} Normal > OR = 60 [facility] Comment on above: Order Comment: COLLE CTION KIT GIVEN TO PATIENT. PATIENT ADVISED TO RETURN. Performed By: #### 1 [id number] #### [facility] [address], [address] [place] [address] [place] Counselor: Ankit San MD Globulin (S) [Mass/Vol] 2.5 g/dL Normal 1.9-3.7 [facility] Comment on above: Order Comment: COLLE CTION KIT GIVEN TO PATIENT. PATIENT ADVISED TO RETURN. Performed By: #### 1 [id number] #### [facility] [address], [address] [place] [address] [place] Counselor: Ankit San MD Glucose [Mass/Vol] 131 mg/dL High 65-99 [facility] Comment on above: Order Comment: COLLE CTION KIT GIVEN TO PATIENT. PATIENT ADVISED TO RETURN. Result Comment: Fasting reference interval For someone without known diabetes, a glucose value >125 mg/dL indicates that they may have diabetes and this should be confirmed with a follow-up test. Performed By: #### 1 [id number] #### [facility] [address], [address] [place] [address] [place] Counselor: Ankit San MD Potassium [Moles/Vol] 3.7 mmol/L Normal 3.5-5.3 [facility] Comment on above: Order Comment: COLLE CTION KIT GIVEN TO PATIENT. PATIENT ADVISED TO RETURN. Performed By: #### 1 [id number] #### [facility] [address], [address] [place] [address] [place] Counselor: Ankit San MD Protein [Mass/Vol] 6.8 g/dL Normal 6.1-8.1 [facility] Comment on above: Order Comment: COLLE CTION KIT GIVEN TO PATIENT. PATIENT ADVISED TO RETURN. Performed By: #### 1 [id number] #### [facility] [address], [address] [place] [address] [place] Counselor: Ankit San MD Sodium [Moles/Vol] 136 mmol/L Normal 135-146 [facility] Comment on above: Order Comment: COLLE CTION KIT GIVEN TO PATIENT. PATIENT ADVISED TO RETURN. Performed By: #### 1 [id number] #### [facility] [address], [address] [place] [address] [place] Counselor: Ankit San MD Urea nitrogen [Mass/Vol] 12 mg/dL Normal 7-25 [facility] Comment on above: Order Comment: COLLE CTION KIT GIVEN TO PATIENT. PATIENT ADVISED TO RETURN. Performed By: #### 1 [id number] #### [facility] [address], [address] [place] [address] [place] Counselor: Ankit San MD Laboratory - Hematology and Cell countson 06-20-2024 HbA1c (Bld) [Mass fraction] 6.9 % [facility] No Panel Informationon 06-20 Interpretation and review of laboratory results Abnormal [facility] ALL CBC WITH AUTO DIFFon BASOPHILS ABSOLUTE AUTO 0.1 [facility] Basophils/100 WBC (Bld) 0.7 % 0.2 - 2.0 % [facility] Eosin[facility]/100 WBC (Bld) 3.7 % 0.9 - 7.0 % [facility] Erythrocyte distribution width (RBC) [Ratio] 12.7 % 11.0 - 15.0 % [facility] Hematocrit (Bld) [Volume fraction] 43.2 % 36.0 - 48.0 % [facility] Hemoglobin (Bld) [Mass/Vol] 14.4 g/dL 12.0 - 16.0 g/dL [facility] IMMATURE GRANULOCYTES ABS AUTO 0.05 High [facility] Immature granulocytes/100 WBC (Bld) 0.5 % 0.0 - 0.5 % [facility] Interpretation and review of laboratory results [facility] LYMP[facility]OLUTE AUTO 2.0 [facility] Lymphocytes/100 WBC (Bld) 18.2 % Low 20.5 - 60.0 % [facility] MCH (RBC) [Entitic mass] 30.5 pg 26.7 - 34.0 pg [facility] MCHC (RBC) [Mass/Vol] 33.3 g/dL 29.9 - 35.2 g/dL [facility] MCV (RBC) [Entitic vol] 91.5 fL 81.0 - 99.0 fL [facility] MONOCYTES ABSOLUTE AUTO 1.1 High [facility] Monocytes/100 WBC (Bld) 9.9 % 1.7 - 12.0 % [facility] NEUTROPHILS ABSOLUTE AUTO 7.3 High [facility] Neutrophils/100 WBC (Bld) 67.0 % 43.0 - 75.0 % [facility] Platelet mean volume (Bld) [Entitic vol] 9.5 fL 9.5 - 13.5 fL [facility] TBH EO # 0.4 [facility] PLT 363 [facility] RBC 4.72 [facility] WBC 10.9 [facility]2024 [facility] Laboratory - Hematology and Cell countson 12-07-2023 HbA1c (Bld) [Mass fraction] 7.0 % [facility] m2fx No Panel Informationon 12-06 [facility] DEXA SCAN CENTRAL SKELETALon 06-13-2023 DEXA SCAN CENTRAL SKELETAL DEXA SCAN CENTRAL SKELETAL *ADDENDUM*The current [employer]opor[employer] guide recommends treating patients with FRAX ten year risk scores of greater than or equal to 3% for hip fracture or greater than or equal to 20% for major osteoporotic fracture, to reduce their fracture risk. 833 Finalized by Ayush Borges MD on 06/13/2023 3:01 PM Normal [facility] Coding Summaryon 06-20-2022 Coding Summary HTMLBase 64 SruhbzytXGx6fCa+P GhlYWQ+TY2TUYQdE7 0gaOChfR4JC9hCQL6 VJKQVLHFTXV0LQK0w cKS6ZCrdZ7OuevLa RzirhCObOR77QGe0D KE6xTunWLuaqB8ykS FbJ5c4CbSwLI05hR5 3AOjrCYDzVmX6NwPv bjsgbWFy C0syBcPobSCmOip+P HRhYmxlIHdpZHRoPS cxMDAlJyBzdHlsZT0 oKv4oQGUmLLHmlKtr cHNlOiBj e5sxPKVgWPlnHH9az IvxI6NabOS3CXWue9 h7Kp95jCP+PHRkIHN 8uIzbFXdqi241IvKi h3mfIDY3 bBBlGAchRJV6E58bg 3M6QBVpZVUeYNG7mQ A4sM8lcGixvucmS0U zfDHwPkV1KSN0tZGj mM4kwKys bmmshR0qSsl+Q09ES A0JZPLHSI1ZAbv0W1 RkPjwvdHI+YY28GME bYF85gBCjdGEkj5pb uJy1McNp IVDaISY9fHoiLGpiy 5XvSWIrF98fhGFvj3 D6BDOutVpmgFLuRpB atBZ9nC7iLRogdqce d9wdcoex Aysbj2voro18zO40O 75xKHusQOHdBTO1QJ ZyZUVemGudmv9bxK4 wIi8+DBljz3ptr4af fVj4NkBa ITHlarKpzQdzCSX1h 4WmBb97O7GucTkap2 TlYyd8ob87dZWvn6S 6rOQ7UItuOKWsvY9m LWxlZnQ6 HNGuAjEnoH45pGZyJ HifVm9lcMvxmAunNQ 7pTGTjuedmLQTahQ2 pJYGqyQMduFdkIB1o NTBpbjtm y143KxEeEGB1PPRli BWyA4BdgJ8dWuQuIJ LtOXYpT1LrxRVfRIj uY557GOuaClY7SAQb nnRjM7Lk NATuaJvdSbB0s1Y2W e3Sf9AycorqUIC7YZ noOZExQhW7JoPfYaW 8W6WtXso3FUTdwElw KP7hW7Ee THNrjkilpbvvpIW4T UHdBOOcuX67sWZsDZ whNc2eo4X3w821YVX bRCBbmI68Gf8xcChf MTBwdCBU mD4nvqcje3nxscmfB rPvMOPpFMp9IAb1MR NnnYebMkPuYJV2HtH 3NAU3kOCmxD2ehFaw uviuwE7w Oyc+R48fhX5cSTP3H HI2nwwxGWZhddEmYP 90QQ92B4TkBtwjeRW ibGU+PGRpdiBzdHls HA2oWcBx n8mvo5EzFVsqN6KrT XRrXPxiSsc8OWXtTN S5hVX9mF0fVJHpNCa ed2F2iDH4T2HwzbPk gj3yf9uw MHPtTAcaC15lnSNau 1P2ZSDelJE9WYCtqB ilAlBakQ44Lcr+PGN qmOnwe4KrLvigz2lo s1obpLk8 IjMwJSIgdmFsaWduP YH0g4SaXt68E78fRL dpZHRoPSIxNSUiIHZ ujRddwe1aqH4uWz1+ PGNvbCB3 cSX3mS8mMQVdNnW0H IfmT779VaGobZTfPp bdm2tsl1dtsFz2XkH wJSIgdmFsaWduPSJ0 s6ZiRi02 O82pSMvmFFOtDHYoK AEgPZOubAclhn6bkY 9wIi8+NK8iq2mvyl5 8oP71dLS+PHRkIHN0 eWxlPSdw DWXrfW6uOFbfXoX8T QWtKoOsyL41iIMjLX pxFe4ohXbtoVvyFA6 hODXagpett128TfMq c1shVATa wSQxRZkqNCW1F68kd 6T7QYCrRFIrOZB8oD P3zO2kyGwxetlfkFJ mdDsgdmVydGljYWwt KGlcT022 IHRvcDsnPlBhdGllb uOwLrUrYMb0D5HqIg b5YTFbvMdsEX3qpMH dWZezGy5tyVvpuNka PO4nPLZt tprfq933WfFjn0pzY RWvfNHaNMzmGZO0G0 6yp3O4NJYwVEEkADM 8xMN1wN7ptUqlnlid bGVmdDsg dmVydGljYWwtYWxpZ 246IHRvcDsnPkJpcn CxAAMgoFC3ZR27NL2 4fJFdn3L5uZH0Z5Fl ZGRpbmct pdxsxAI1EBNgNCVfv A74Je4fzEhoMp8cBN WgMHK7SPXfnCAdD8N hpS1fUaWmDPOzAXVp Q1DyzUMl VQnlB304YAdcHdJ8D HReipHfJ0QtUETcuL ttMtA9s8B6Re3YC6B 0YQ56ME86pZBdg8R8 lUI9Y6Hs JGLylkgebktfgIJ3V MTdSDNxbU71Ug0soN fnFq5xUXIcJTK8KCB fjXVtP4IhfV7tOeSb MDAwMDAw C9AndLOsMPeyS057Y LzwSbE1NHMyfqPgO2 OzELYaoCxgWwT7a8O 9Er9WINj9UG08SE06 mJHzq9M5 cVE7W4FbNSJschybe gwyzPZ0VMUjHGAqkW 82Ls8ooLgnXv3hVZG gQAA7RKOubJFaS7Sc uP0nEuUz EZBeIJVaT8YtmNYhF GovQ287GYntSwF5SJ YcazOlI1VvGWMyzHm pEwG9e4N5Ew7YOBPb DW57ZRF1 cQP4GE73RK08Q1CjW jwvdGFibGU+PHRhYm xlIHdpZHRoPScxMDA dJrZncIigLU1yUo9t ZGVyLWNv wLoufICeUsCqv3wmP ADuRBpuGH9nkOxoY7 CfsMO9YXGit3v6Wp4 4X57tJ2IvuZI+PGNv bUO9hQO9 rR0gPiKyLgF6MKhuJ 188FvVugGKkPpmev4 fqt2eraMs2HvO1GSN nlhRexYtwBTO9n4Uv Hg32L99a IHdpZHRoPSIxNSUiI NAfcKzmwp5fkH8nXp 8+ASYmqHI5wRX3mO9 hJaSoCnR9RLnvY145 InRvcCIv Tindh4dwa7tdsUh1H jIwJSIgdmFsaWduPS Z4i4XdQs34M6HzgOf ly7IrEkx0hx68qPVy u1I3oDN5 S6XvWCJyvkjmcNFxo TnrMV7cGEVagxrlSN RhcK7mEDOpO1b8UbS yOuX9WKopL7SvffJ4 IDEwcHQg KSjkMHG4D70vy1X5P HYqEWGtCHP3lUH7xA 1hbGlnbjogbGVmdDs gdmVydGljYWwtYWxp X324MMEr bYetMPGveM2rBWLuv VMyuVpdIO1lCIZbkl snPktZUkMsIExZTk4 bBU2HLM59XG54tJMj f1U7jBY3 W0YcBMUhwtgvybden SN5VHUpNWDjcE46vA QwAPdwVp5yp8C9a75 3INGdHHGbtO45Vp9b dDogMTBw oIVHsF1zqzcyl9vlg oeiTcHjTECsSDl4PC e8UASurMgwLrInEHW 5LzG3QIF8zJEqqS7q bGlnbjog xQ5dCrg+MDIvMTYvM Fi9PYfhrWO+PHRkIH O0cDmwATucJAUdxG8 qINDeM4g0RzMwXiF8 VAgfF2Tw ISBnmbvtVz07gL5vI iMxSnR1WWxgZ7Zhys J9VSRusWKfNToqRFK 6W98qc6Z3ZHTcAKXq RDE4yWD8 dX4bhYskogoaqEAyg DsgdmVydGljYWwtYW vuD099DBOfbEfnAzJ 6AKkgHTTeCH17EN53 jPIah1G9 vBY4K8MjAYBebopzk azfnPL1ITXnWMGpyE 86vBWjBFrmRv5ib8S 6d981VGUfKJRsdI08 Tv2nvAhz OQMgyNBDfZ4ymdljf 2xvcjogIzAwMDAwMD s5WKi6XXPhqUqxWbR iPIA0QnT6AKX2eUYz mE9lfPxs dpwwdG6pRwh+RkVNQ XiBGH77NJ66hIJer8 Z0gTV7V9SnROPadfq hvtmozNC1YTDtKJPl jQ56yKZm KWvvFp3jm3M0f970U BRvHDFvqK58On4xlO wnEAPpfKSCrY8tyjt kj5eurqwzGbHiVVPc HZa9AJs3 WKBkwLvpIkXxDDN6L vK1QVM5zWRtaD7taX djzrjmvY7hUxt+UmV xnKBwxZ6pSP52vSRc dGllbnQ8 X3DzGengsCD+PC90Y MNzHB27uQHhkLRwv0 rixDe0WyYxLPNzBYV 2dJhtCGwnd0YdGEFf E23kqINf g2X6JYSflCvovWPhF tXwdST3mR7sVCacgz fen6hlikbbVrdwa6v opp67aU67Y64wJZqv ZHRoPSIz JVGtAQAupOzykr2bw G9wIi8+RTQatSG6cK B6nB7rStWpTfT4JLg gM404UkEqhXXoJesu m6bnf4cu zLr4RyLbDNMzsoAfw MzpQBI7e3CzCu63O1 9sIHdpZHRoPSIyMCU zHRMzlLskcl5ocM0n Ii8+PC9j u3zuyl36yQ85vHQ+P XSdPUI0dGmyCTjlZI FlrQ1wQPhzAwK0LUL lJtHmcT08tCHrFPhq Qf5bdQva tIglKJ6hWBPpnaeum 857YaJvm0kxADAexZ QuRQxxEYH7B63oe2O 7WOLsAUEzFVK4oOX8 fX1afGbs bjogbGVmdDsgdmVyd OssDZrgRXskJ546GC AhyVyuDwUmvACzE2t yvpTTWZ7iMyaxyCK+ PHRkIHN0 iNpaQIluORCdsB2qS ZLhM6c3AmZdXdC2VX zvC0RhfnB8IYYfzUE pXSZblFKEuC8jzgiy r8epirkf GcExADDsZIv7BPt6H PIsdNfsEsHtJRH7Vn Z0GIU4pKVzkN1cnQc itklctR9gWan+RklO OjwvdGQ+ JYCcHXB3mBazDGqoB CRqdF3rRPUkP5q5Xx WiVqY8SUtaE6JozoZ 6IGJvbGQgMTBwdCBU qT7bduql q2klitsqJlVoEXVxO Yo7QRb4ALYzvGfuXp HbHTQ7ViL3JUR8uYL gpH6lmXokqvuqdG6s Oyc+TVJO OjwvdGQ+UOTpZMV4y XefVTmhNHJgcG9bHZ XkM5r5BnNtMrF0JQk nJ8QbotH6BLDzzRQc MTBwdCBU zS3akyhje7jspzdnR eUsRAYzOKj4BZo9BW LstYvkAbAqVLF2DuE 4NRO9rZAarP8whAsj yomhlX2s Oyc+SOE7SOO7SX12Y Z38B4MlIbiizMHheP U+PHRhYmxlIHdpZHR oPScxMDAlJyBzdHls MY7qMx3y ZGV (more content not included)... [facility] Provider Orderson 06-14-2022 Provider Orders [id number] [facility] Coding Summaryon 05-11-2022 Coding Summary HTMLBase 64 KxwyececPLk7pHx+P GhlYWQ+WU3SQXEpK7 2arDJvaL3TH4yCCV4 IWCIFHMUYES0EGQ8b bRU4UJxxS2AwbkHd IyccvEOgUM59ELy0B IN6cRkiLJjoyM4wgH JmL9y4BjFvEG53wZ5 7LKeqCNYjOuT1OaTd bjsgbWFy N6jxZnEntCBkFvk+P HRhYmxlIHdpZHRoPS cxMDAlJyBzdHlsZT0 bCc1rQUIqQPWehCup cHNlOiBj u3rdWNHkRQhkNB6ev JkcP6OenTK5YJKiv4 y5Dn63tNR+PHRkIHN 6kRztLOorn341TeNu z5npOEQ1 mDQcLTniOLV7G41ok 2H4RMHuRFTxVWV6sS H6oL5ygFeryjulH2V ajYGlGeB4PCI3uAUa xS7kgAhe hxnmpV4qFaw+Q09ES O0AUELXSM3HTce6N9 RkPjwvdHI+GB37KUI bNT61uZHorQXyu9ax zHo1SuKd DMFiHEZ9vCmnDJhun 4DpCMKoE35gzVEqg4 B2TRTsaGixbWBhTdW pvBS9zX9zBRjesrde g3ebhigd Zyikk7pjeq07cO04F 71zLJavIPDkOVP1DS OwMKHwzMipce4hzD5 wIi8+XReht4suc1rj xDg8RtFp IPHmheCyvTvnCFR1h 7YxXc53J5FlqVwkg7 SuQqh8kw11qTZok3S 1tGQ0TEfiZGXgfF7t LWxlZnQ6 OKBuElPhfL60lVUcQ BkeSk7naVzeiFmxLQ 2dIBIwkvebMPIuqO6 yJWQzzLVacMtkXX7s NTBpbjtm v366EpEtWIU7QXIla QYfE2IqeH6fHjMsMB SrAGHcX0AttHJgISq cV533MBjgEvE2ZSQm zwAvK5Ph QZSmaIhrQqL8n9F8G c6Rf9SsabngRXQ7JF kxORNwIuS5ThOuZgH 4G4EoShj9YZAjuDlf UM6gN1Wr HMGrpppfhxdxzQU3M ZXmSDInqH13iCLwAN ipLy5vb6L8n403AVR hDENyrW81Qw5spSdb MTBwdCBU mT4hsnyty6iftkraJ aNnTEKwEJu5ZCb2TQ JdvCwaPhLvZMT2FkH 8SXC3oRWsbV9yoDtt dkuhkU6y Oyc+X41tjI6kEXJ7S UM6ruoqTNIpatLtAX 24AG51X5MuSapyvMM ibGU+PGRpdiBzdHls MQ1zIcJr u2alf9CaEGdrK7YoK IMfQTxaZwt0CEYwBK Q4sVP4vN6tMDMwJQe fm6U3mJY7S5QlqkMk zj2cv5ce YERcUKojD62ilHTgo 0D8SFCreCE8KBCycH zlDiFduD00Syh+PGN qzRxsh9VlLqvci9ep v3difMl9 IjMwJSIgdmFsaWduP MA5n9JhJn36B17xZR dpZHRoPSIxNSUiIHZ pyXaqqg4ueB4vIf0+ PGNvbCB3 jJD3nE6rCJUkWzY9B ZpiY108TaXhaUXnDl mbk6gnk4xuzRi8HzX wJSIgdmFsaWduPSJ0 f4HbFp37 V68wPUgtCWOxVVJhJ EBuXDLpdWbmzu1zoD 9wIi8+QE3zg5ywcp6 9yD82bSO+PHRkIHN0 eWxlPSdw VLUthB7yMRedEiP6Y SJwHkDdaG13fTNlSM trNb8edXawbVxhEY1 aUGTfeojwo056ElGf o1xtBWLm lAAiAUgzKUA9Y70sl 5C5FHWvHWEsVXI8bJ R4iT6xiSrxpmbmpYX mdDsgdmVydGljYWwt YMxfC457 IHRvcDsnPlBhdGllb vYhQvWyOLu6Z9EkQp z2HGRqsBzqXQ0phRV fOEojZe6epAfykBjj GV0dLDDr yecqz490OyVej9euH NGxjQMtXZcpAWU4O2 7ey1C5ECCxPBMoSIG 0aEN8lS1ldTjhcorr bGVmdDsg dmVydGljYWwtYWxpZ 246IHRvcDsnPkJpcn LfXPYopDX6XT13VG1 8zJEer0B5wPF3N6Bs ZGRpbmct mjqyxBS0CVCqIMNqj Z37Kr6zfDryAp3pYI YiQKR3WVUttQGdF5T rvU7uJlEcCSGqGBBc G7MqtIPc PUhyG969ZIjfUzS3D FRbptDhX4CbMMIdkB zkQdV2c3B7Mz7SH7P 2CP60HB57tQIsg6L6 uDQ6Z3Gh OPWjpkmkrfrmuLI4Q TIxFBQmnG38Kl3efD gwJt2tYBElFZL1KAM cjHFuB9PblA2lDvCe MDAwMDAw O2XeaCGbRCfjZ906P EsuEaL9UTZpwjAjQ9 JdCOVpzWqaFuG9p9E 8Ld7QDPj3HA36SZ80 iLPve2T4 wZG5K7QxGXFjpznjs uipsJR8NZNdFQZzxZ 50Hz0guDmeRj3iXZA rOMI3BAVkdPYmH8Ja pG5rIoJl LRBpTIEbI8DwaTIvU RflL617HTibIeD5TN HojsBbY0IhMNFumZx tJsT8m0O4Nr5TJABo TW04YDQ4 wRY2ZM75MJ15W6UoZ jwvdGFibGU+PHRhYm xlIHdpZHRoPScxMDA lTyPszJlzOA7aDp1d ZGVyLWNv vVkgaCZqNpMmu3buS MByYBanID0ndTfeM9 HtaUW9RZDnv0l5Fc7 5L66hM2PraLE+PGNv vYR1tIV4 sO8pMvHcYoC0RUueP 510FqIzgNBeXgkqz1 cog6sckZd7LuH4THO zpgBafKxuRTJ9a2Br Pp48J07u IHdpZHRoPSIxNSUiI PBenKzbbq9ulP9sBl 8+GTAcyYG1sGZ8uG9 vWfOsSsG7BVcwH329 InRvcCIv Hlsgp8gqs1iqjUy5L jIwJSIgdmFsaWduPS S8m7EdIc26D5RnzXq hn8MjYux0uj14vPQl m6Y4iAT5 W3JuQGSwazlqnLUdh NdbRO0dXZIrofwvUB BenF0zVENnZ4m1OtU iPtY6QKeuN4PszsT9 IDEwcHQg WSkfCOB0R54vn2Q8D FDyCSLyWYO0lHA0aX 1hbGlnbjogbGVmdDs gdmVydGljYWwtYWxp V308QTGe jUrgSLQayN9mGWLel IUdvMyxTA0dSVUkrm snPktZUkMsIExZTk4 ySU4YEH00RM73fCBe t1E9yVD2 I8SkXLVqpyxmypqqj PD3VZImLRRjfJ61pR DeTTnmQs1id6A2o35 8PSUdTDSflC66Rz8s dDogMTBw pGETnA7ccxuio3gme tmzMmWlLSLxNLp2YD s3DXRykRlgVeOoFGF 2RuF0IWV8aRCumU6l bGlnbjog nH5wEtn+MDIvMTYvM Xw8AQzpcJS+PHRkIH G0oAjyUBfqAUKttQ1 gVWFlF3x3VyPkIfZ0 TCciL7Yf BAAtoxawKf84wM4rN xOnBiF6GKeeV5Zfyc V9SEJgcWBtHGsyIHO 5K65zz8B1ZPTkVCPi LSY3pBW5 fG6kyXcmivceeSGyb DsgdmVydGljYWwtYW acN369XKTfdVosBmL 2TIzqFMShBB44UI14 gYOoi5Z1 hKU5A8PsWRVygnmga qawkAL9CJPdFKTuqL 02jKDiQLnyXk3em5U 1p496ANXhBHQcuR94 Hu5blHzh RXRvnSYMvJ2pylkew 2xvcjogIzAwMDAwMD z8YIs9NUMsyYorRbH hIUO1CbP0WLD0iNQm iD3lrVid nufzpY3lCqo+RkVNQ HtRPV98FZ59gDAqm7 E9kJD7K0ClHPMgioo emueqbNI8ICPdIBSw vO16eVTm NVygZh5mv9T4h166L HJmXWGphN11Ec7dzK krZWLsuFGWgL0tuph uo2ickaojInVnBGQd PDc2HIf1 IXNsuAgwCwMgCSZ5B qY6HKA8aVBuyL6iwI culavcgV5rEvp+T1A 9G3CwHfniyPS+PC90 BYTwMB87 pTBtrHVnw2lfjSb4M qSiBKBnWBT9iAwmYM sph2RdOYLnE68gmMB ss8O5ZXEuoNnbpGVu OyBlbXB0 lB3bPWvquztuo3zwc hquVjace3obld33xF 62Y76aKQrkLDHzGII xHMFgXDIsjOxtgy1z uH9aWg0+ MJLtrFK4dSC4tG9tN kJhJpP5PKytK046Ni LhbQZdYcjib7swa3e lwPc4FeUrYWDhxhDe aWduPSJ0 l8DhHg59X54iXOytF HRoPSIyMCUiIHZhbG ktuy7ceV1qXk4+PC9 ko7yghy13vG97dPV+ PHRkIHN0 rYcuEFbkRQIdwC3wJ TqgCrF8ZLZcZnIdbM 32fZXjWNmyEm9qvQa jiFtyVI9iTMJceezg h428AxTm q8xkQORzyTQoHTfeZ VZ1J25pn7C1QGYlRF QxVTZ2wFK0kX5bmJw nbjogbGVmdDsgdmVy dGljYWwt VKfhY598NIVujVzjB vKrfNDyT4tmdaGYIJ 1lOjwvdGQ+PHRkIHN 0bVenXIyuUCJonA4w XNEfT4u8 IrOoTiV4RFjbY6Eyg sG3RPAwoPOnYHTvdL GUvT6fszdyc2vakbe qYmNrJPViNGt2MFz2 LWFsaWdu EuZdBXB1HnB0VDH7e PMqsR8hlWltmidhfJ 9wOyc+RklOOjwvdGQ +WIQkOCV4wRfkCVbr FDRzuP3o KTEdA5l1ApZzVdO1T JbaW9NrowU5WGAuxO XgDKFkzRUGvB1tdaq iu4emxsypAvMxIZFx AGt6OGw0 ROEpdCfuIxCnXQT6Q gO8AKH4vKAlzJ8xqQ jdgkhriJ4oUtq+TVJ OOjwvdGQ+PHRkIHN0 eWxlPSdw SHNzkZ7qRVToN8x2Q dVlZwV9MMezA4Ajxd V0TVRmfSQaIZXmhXT MjY6redjsy8dbvpaf IzAwMDAw SHz0CEc2GSJymSftJ cLdXVU6MaO4BKJ9eM TwsI0ueXoayrdxvR7 wOyc+KWI2MWX5VO10 HW95C5Nc PjwvdGFibGU+PHRhY mxlIHdpZHRoPScxMD YsPhByyYqfQY4ePu7 yZGVyLWNvbGxhcHNl PkMxd0zw YXB (more content not included)... Normal [facility] .Auto Diff 05-04-2022 Auto Ward % 8 % Normal 04-28 [facility] Comment on above: Performed By: #### 7 [id number], [id number], [id number], [id number] #### [facility] (DEFAULT) [address] [place] [address] Baso Abs# 0.0 x10 Normal 0.0-0.2 [facility] Comment on above: Performed By: #### 7 580644, [id number], [id number], [id number] #### [facility] (DEFAULT) [address] [place] [address] 47574 Basophils/100 WBC (Bld) 0.6 % Normal 0.2-2.0 [facility] Comment on above: Performed By: #### 7 389612, [id number], 64546419, [id number] #### [facility] (DEFAULT) [address] [place] [address] 20169 Eos Abs# 0.4 x10 Normal 0.0-0.4 [facility] Comment on above: Performed By: #### 7 077021, [id number], 37892078, [id number] #### [facility] (DEFAULT) [address] [place] [address] 33113 Eosinophils/100 WBC (Bld) 4.4 % High 0.9-4.0 [facility] Comment on above: Performed By: #### 7 730606, [id number], 52991861, [id number] #### [facility] (DEFAULT) [address] [place] [address] 61826 Lymph Abs# 1.5 x10 Normal 1.3-2.9 [facility] Comment on above: Performed By: #### 7 349620, [id number], 61742757, [id number] #### [facility] (DEFAULT) [address] [place] [address] 92196 Lymphocytes/100 WBC (Bld) 17 % Normal 14-48 [facility] Comment on above: Performed By: #### 7 555582, [id number], 69296178, [id number] #### [facility] (DEFAULT) [address] [place] [address] 15000 Ward Abs# 0.8 x10 Normal 0.0-0.8 [facility] Comment on above: Performed By: #### 7 475573, [id number], 19321717, [id number] #### [facility] (DEFAULT) [address] [place] [address] 27694 Neut Abs# 6.3 x10 Normal 1.5-9.2 [facility] Comment on above: Performed By: #### 7 383864, [id number], 54147185, [id number] #### [facility] (DEFAULT) [address] [place] [address] Neutrophils/100 WBC (Bld) 70 % Normal 44-88 [facility] Comment on above: Performed By: #### 7 240345, [id number], 57661757, [id number] #### [facility] (DEFAULT) [address] [place] [address] CBC w/ Auto Diffon Erythrocyte distribution width (RBC) [Ratio] 13.3 % Normal 11.5-15.0 [facility] Comment on above: Performed By: #### 7 219032, [id number], 12102839, [id number] #### [facility] (DEFAULT) [address] [place] [address] Hematocrit (Bld) [Volume fraction] 43.9 % High 33.7-40.4 [facility] Comment on above: Performed By: #### 7 572077, [id number], 33506271, [id number] #### [facility] (DEFAULT) [address] [place] [address] 65638 Hemoglobin (Bld) [Mass/Vol] 14.4 g/dL Normal 11.3-15.9 [facility] Comment on above: Performed By: #### 7 503632, [id number], 32539452, [id number] #### [facility] (DEFAULT) [address] [place] [address] 88222 Instr WBC 9.0 x10 Invalid Interpretation Code [facility] Comment on above: Performed By: #### 7 997985, [id number], 12768980, [id number] #### [facility] (DEFAULT) [address] [place] [address] Man Diff? Auto Normal [facility] Comment on above: Performed By: #### 7 730586, [id number], 19169107, [id number] #### [facility] (DEFAULT) [address] [place] [address] 99349 MCH (RBC) [Entitic mass] 30 pg Normal 24-34 [facility] Comment on above: Performed By: #### 7 487519, [id number], 93350222, [id number] #### [facility] (DEFAULT) [address] [place] [address] 31473 MCHC (RBC) [Mass/Vol] 33 g/dL Normal 26-37 [facility] Comment on above: Performed By: #### 7 262986, [id number], 98391804, [id number] #### [facility] (DEFAULT) [address] [place] [address] 19348 MCV (RBC) [Entitic vol] 92 fL Normal 81-100 [facility] Comment on above: Performed By: #### 7 988320, [id number], 65271898, [id number] #### [facility] (DEFAULT) [address] [place] [address] 81524 Platelet 412 x10 Normal 138-427 [facility] Comment on above: Performed By: #### 7 756620, [id number], 58983805, [id number] #### [facility] (DEFAULT) [address] [place] [address] 94045 Platelet mean volume (Bld) [Entitic vol] 9.7 fL Normal 6.3-10.2 [facility] Comment on above: Performed By: #### 7 735840, [id number], 44471828, [id number] #### [facility] (DEFAULT) [address] [place] [address] 29968 RBC 4.78 x10 Normal 3.70-5.30 [facility] Comment on above: Performed By: #### 7 992925, 8247885062, 56356322, [id number] #### [facility] (DEFAULT) [address] [place] [address] 75154 WBC 9.0 x10 Normal 3.5-10.5 [facility] Comment on above: Performed By: #### 7 505496, [id number], 56578882, [id number] #### [facility] (DEFAULT) [address] [address] Standardon 05-04-2022 eGFR Non AA >60 Invalid Interpretation Code [facility] Comment on above: Performed By: #### 7 065562, [id number], 74344080, [id number] #### [facility] (DEFAULT) [address] [place] [address] eGFR AA >60 Invalid Interpretation Code [facility] Comment on above: Result Comment: [employer]i Developer Designer maribel Kidney disease could be indicated at eGFRs of less than 60 ml/min/1.73m2. Kidney Failure is indicated at less than 15 ml/min/1.73m2 Performed By: #### 7 920371, [id number], 82111931, [id number] #### [facility] (DEFAULT) [address] [place] [address] Albumin [Mass/Vol] 4.0 g/dL Normal 3.5-5.0 [facility] Comment on above: Performed By: #### 7 636609, [id number], 87724253, [id number] #### [facility] (DEFAULT) [address] [place] [address] Albumin/Globulin [Mass ratio] 1.4 {ratio} Normal 1.4-2.6 [facility] Comment on above: Performed By: #### 7 123024, [id number], 64291928, [id number] #### [facility] (DEFAULT) [address] [place] [address] Alk Phos 97 IU/L High 32-91 [facility] Comment on above: Performed By: #### 7 038087, 5205134123, 86357461, 7659578292 #### [facility] (DEFAULT) [address] [place] [address] ALT [Catalytic activity/Vol] 17.0 U/L Normal 14.0-54.0 [facility] Comment on above: Performed By: #### 7 003249, [id number], 95917991, 5816157969 #### [facility] (DEFAULT) [address] [place] [address] 80482 Anion gap [Moles/Vol] 14.0 mmol/L Normal 5.0-19.0 [facility] Comment on above: Performed By: #### 7 597138, 8505859001, 11287764, [id number] #### [facility] (DEFAULT) [address] [place] [address] 25442 AST [Catalytic activity/Vol] 23 U/L Normal 15-41 [facility] Comment on above: Performed By: #### 7 030862, 5836499580, 18920902, [id number] #### [facility] (DEFAULT) [address] [place] [address] 97208 Bili Total 0.7 mg/dL Normal 0.3-1.2 [facility] Comment on above: Performed By: #### 7 264882, 9922256889, 93454024, 6937673837 #### [facility] (DEFAULT) [address] [place] [address] 94026 Calcium [Mass/Vol] 9.3 mg/dL Normal 8.9-10.3 [facility] Comment on above: Performed By: #### 7 710523, [id number], 95063754, [id number] #### [facility] (DEFAULT) [address] [place] [address] 85220 Chloride [Moles/Vol] 93 mmol/L Low 101-111 [facility] Comment on above: Performed By: #### 7 372403, [id number], 69678376, 7894474962 #### [facility] (DEFAULT) [address] [place] [address] 28409 CO2 [Moles/Vol] 29 mmol/L Normal 21-32 [facility] Comment on above: Performed By: #### 7 739897, 6325903693, 95179298, 0732874084 #### [facility] (DEFAULT) [address] [place] [address] 60720 Creatinine [Mass/Vol] 0.76 mg/dL Normal 0.60-1.30 [facility] Comment on above: Performed By: #### 7 608367, 8538808503, 68152453, 5341402274 #### [facility] (DEFAULT) [address] [place] [address] 39632 Globulin (S) [Mass/Vol] 2.8 g/dL Normal 1.5-4.3 [facility] Comment on above: Performed By: #### 7 050675, [id number], 43643000, 4178243071 #### [facility] (DEFAULT) [address] [place] [address] 77425 Glucose [Mass/Vol] 169.0 mg/dL High 74.0-118.0 [facility] Comment on above: Performed By: #### 7 673476, [id number], 87612929, 8450431579 #### [facility] (DEFAULT) [address] [place] [address] 54067 Osmolality 268 mOsm/L Invalid Interpretation Code [facility] Comment on above: Performed By: #### 7 258963, [id number], 60653055, [id number] #### [facility] (DEFAULT) [address] [place] [address] 36926 Potassium [Moles/Vol] 4.0 mmol/L Normal 3.6-5.1 [facility] Comment on above: Performed By: #### 7 789459, 5334021744, 46890048, 9265529816 #### [facility] (DEFAULT) [address] [place] [address] 64947 Protein [Mass/Vol] 6.8 g/dL Normal 6.5-8.1 [facility] Comment on above: Performed By: #### 7 598540, [id number], 08560264, [id number] #### [facility] (DEFAULT) [address] [place] [address] 67159 Sodium [Moles/Vol] 132.0 mmol/L Low 136.0-144.0 [facility] Comment on above: Performed By: #### 7 511777, [id number], 06700769, [id number] #### [facility] (DEFAULT) [address] [place] [address] 12859 Urea nitrogen [Mass/Vol] 12 mg/dL Normal 8-26 [facility] Comment on above: Performed By: #### 7 410418, [id number], 04696400, [id number] #### [facility] (DEFAULT) [address] [place] [address] 80740 Urea nitrogen/Creatinine [Mass ratio] 16.0 mg/mg Normal 4.6-16.2 [facility] Comment on above: Performed By: #### 7 468074, 3974895404, 29509425, [id number] #### [facility] (DEFAULT) [address] [place] [id number] Lipid Panel Standardon 05-04 Cholesterol [Mass/Vol] 144.0 mg/dL Normal 66.0-200.0 [facility] Comment on above: Result Comment: Sarah rable - Less than 200 mg/dL Borderline high risk - 200-239 mg/dL High risk - 240 mg/dL and over. Performed By: #### 7 [id number], [id number], [id number] #### [facility] (DEFAULT) [address] [place] [address] 14669 Cholesterol in HDL [Mass/Vol] 67 mg/dL Normal 40-71 [facility] Comment on above: Result Comment: High risk - <40 mg/dL. Performed By: #### 7 [id number] #### [facility] (DEFAULT) [address] [place] [address]21 Cholesterol in LDL [Mass/Vol] 54 mg/dL Normal 1-100 [facility] Comment on above: Result Comment: Opti mal - Less than 100 mg/dL Borderline high risk - 130-159 mg/dL High risk - 160-189 mg/dL. Performed By: #### 7 [id number], [id number] #### [facility] (DEFAULT) [address] [place] [address]846 Cholesterol.total/C holesterol in HDL [Mass ratio] 2.1 {ratio} Normal 0.0-4.5 [facility] Comment on above: Performed By: #### 7 [id number], [id number] #### [facility] (DEFAULT) [address] [place] [address] 67937 Triglyceride [Mass/Vol] 112.0 mg/dL Normal 0.0-150.0 [facility] Comment on above: Performed By: #### 7 [id number], [id number] #### [facility] (DEFAULT) [address] [place] [address] 24669 VLDL. 22 mg/dL Normal 5-40 [facility] Comment on above: Performed By: #### 7 [id number] #### [facility] (DEFAULT) [address] [place] [address] Vital Signs Date Time Vital Sign Value Performing Clinician Facility 06-20-2024 13:18-0500 Body height 152.4 cm Kristina Hemmer PA Work Phone: [facility] 06-20-2024 13:18-0500 Body mass index (BMI) [Ratio] 37.93 kg/m2 Kristina Hemmer PA Work Phone: [facility] 06-20-2024 13:18-0500 Body weight 88.09 kg Kristina Hemmer PA Work Phone: [facility] 06-20-2024 13:18-0500 Diastolic blood pressure 76 mm[Hg] Kristina Hemmer PA Work Phone: [facility] 06-20-2024 13:18-0500 Heart rate 72 /min Kristina Hemmer PA Work Phone: [facility] 06-20-2024 13:18-0500 Respiratory rate 16 /min Kristina Hemmer PA Work Phone: [facility] 06-20-2024 13:18-0500 SaO2% (BldA) [Mass fraction] 94 % Kristina Hemmer PA Work Phone: [facility] 06-20-2024 13:18-0500 Systolic blood pressure 122 mm[Hg] Kristina MINER Work Phone: [facility] [email or web address] 01-25-2024 14:28-0400 Body height 149.9 cm Severo Carr MD Work Phone: [facility] 01-25-2024 14:28-0400 Body mass index (BMI) [Ratio] 39.99 kg/m2 Severo Carr MD Work Phone: [facility] 01-25-2024 14:28-0400 Body temperature 98.49 [degF] Severo Carr MD Work Phone: [facility] 01-25-2024 14:28-0400 Body weight 89.81 kg Severo Carr MD Work Phone: [facility] 01-25-2024 14:28-0400 Diastolic blood pressure 78 mm[Hg] Severo Carr MD Work Phone: [facility] 01-25-2024 14:28-0400 Heart rate 78 /min Severo Carr MD Work Phone: [facility] 01-25-2024 14:28-0400 Respiratory rate 16 /min Severo Carr MD Work Phone: [facility] 01-25-2024 14:28-0400 SaO2% (BldA) [Mass fraction] 97 % Severo Carr MD Work Phone: [facility] 01-25-2024 14:28-0400 Systolic blood pressure 139 mm[Hg] Severo Carr MD Work Phone: [facility] 12-07-2023 15:12-0400 Body height 152.4 cm Olvin Kamara MD Work Phone: [facility] 12-07-2023 15:12-0400 Body mass index (BMI) [Ratio] 38.86 kg/m2 Olvin Kamara MD Work Phone: [facility] 12-07-2023 15:12-0400 Body weight 90.27 kg Olvin Kamara MD Work Phone: [facility] 12-07-2023 15:12-0400 Diastolic blood pressure 76 mm[Hg] Olvin Kamara MD Work Phone: [facility] [email or web address] 12-07-2023 15:12-0400 Heart rate 74 /min Olvin Kamara MD Work Phone: [facility] [email or web address] 12-07-2023 15:12-0400 SaO2% (BldA) [Mass fraction] 97 % Olvin Kamara MD Work Phone: [facility] [email or web address] 12-07-2023 15:12-0400 Systolic blood pressure 128 mm[Hg] Olvin Kamara MD Work Phone: [facility] [email or web address] 11-10-2022 12:55-0400 Body height 152.4 cm Haylee Saucedo Other [employer] Other 11-10-2022 12:55-0400 Body mass index (BMI) [Ratio] 37.1 kg/m2 Haylee Saucedo Other [employer] Other 11-10-2022 12:55-0400 Body weight 86.18 kg Haylee Saucedo Other [employer] Other 11-10-2022 12:55-0400 Diastolic blood pressure 78 mm[Hg] Haylee Saucedo Other [employer] Other 11-10-2022 12:55-0400 Respiratory rate 18 /min Haylee Saucedo Other [employer] Other 11-10-2022 12:55-0400 SaO2% (BldA) [Mass fraction] 93 % Haylee Saucedo Other [employer] Other 11-10-2022 12:55-0400 Systolic blood pressure 120 mm[Hg] Haylee Saucedo Other [employer] Other 09-12-2022 11:00-0400 Body height 152.4 cm Jude Barlow Other [employer] Other 09-12-2022 11:00-0400 Body mass index (BMI) [Ratio] 37.1 kg/m2 Jude Barlow Other [employer] Other 09-12-2022 11:00-0400 Body temperature 97.3 [degF] Jude Barlow Other [employer] Other 09-12-2022 11:00-0400 Body weight 86.18 kg Jude Barlow Other [employer] Other 09-12-2022 11:00-0400 Respiratory rate 18 /min Jude Barlow Other [employer] Other 09-12-2022 11:00-0400 SaO2% (BldA) [Mass fraction] 97 % Jude Barlow Other [employer] Other Encounters Encounter Date Encounter Type Care Provider Facility Start: 07-17-2024 End: 07-17-2024 Refill Olvin Kamara MD Work Phone: [facility] Comment on above: Neuropathy Start: 07-08-2024 End: 07-08-2024 Telephone encounter Olvin Kamara MD Work Phone: [facility] Start: 06-20-2024 End: 06-20-2024 Bamboo flowsrocío MINER Work Phone: [facility] Start: 06-20-2024 End: 06-20-2024 Bamboo flowsrocío MINER Work Phone: [facility] Start: 06-20-2024 End: 06-20-2024 Patient encounter procedure Kristina MINER Work Phone: [facility] Comment on above: Medicare annual well ness visit, subsequent (Primary Dx); ACP (advance care planning); Encounter for screening mammogram for malignant neoplasm of breast; Type 2 diabetes mellitus with diabetic polyneuropathy, without long-term current use of insulin ([facility]/HCC); Need for vaccination; Neuropathy; Primary insomnia; Benign hypertension ([facility]); Chronic pulmonary embolism without acute cor pulmonale, unspecified pulmonary embolism type ([facility]); Paroxysmal atrial fibrillation ([facility]); Allergy to erythromycin; CLL (chronic lymphocytic leukemia) ([facility]); Depression with anxiety; Mixed hyperlipidemia ([facility]); Non-seasonal allergic rhinitis due to other allergic trigger; Personal history of PE (pulmonary embolism); Psoriasis ([facility]); Class 2 severe obesity due to excess calories with serious comorbidity and body mass index (BMI) of 37.0 to 37.9 in adult ([facility]); Vertigo Start: 06-20-2024 End: 06-20-2024 ambulatory KRISTINA FRY Not Available Start: 05-27-2024 End: 05-27-2024 Refill Olvin Kamara MD Work Phone: [facility] Comment on above: Neuropathy Start: 04-05-2024 End: 04-05-2024 Refthuan Kamara MD Work Phone: [facility] Comment on above: Neuropathy Start: 03-26-2024 End: 03-26-2024 Refill Kristina MINER Work Phone: [facility] Comment on above: Type 2 diabetes jeanne itus with diabetic polyneuropathy, without long-term current use of insulin ([facility]) Start: 03-25-2024 End: 03-25-2024 Refthuan Kamara MD Work Phone: [facility] Comment on above: Neuropathy Start: 02-05-2024 End: 02-05-2024 Refthuan Kamara MD Work Phone: [facility] Comment on above: Neuropathy Start: 01-25-2024 End: 01-25-2024 Office outpatient visit 25 minutes Severo Carr MD Work Phone: [facility] - [facility] On[facility] Comment on above: CLL (chronic lymphoc ytic leukemia) ([facility]) (Primary Dx) Start: 01-25-2024 End: 01-25-2024 Documentation procedure Owen Mendoza [facility] Start: 01-25-2024 End: 01-25-2024 ambulatory NORRIS BRUNO [facility] Start: 01-23-2024 End: 01-23-2024 Clinisync Result Encounter Generic External Data Provider [facility] Unsolicited Start: 01-23-2024 End: 01-23-2024 Clinisync Result Encounter Generic External Data Provider [facility] Unsolicited Start: 01-22-2024 End: 01-22-2024 Refill Olvin Kamara MD Work Phone: [facility] Comment on above: Neuropathy Start: 01-19-2024 End: 01-19-2024 Refill Kristina Fry PA Work Phone: [facility] Comment on above: Type 2 diabetes jeanne itus with diabetic polyneuropathy, without long-term current use of insulin ([facility]) Start: 12-30-2023 End: 01-01-2024 Refill Olvin Kamara MD Work Phone: [facility] Comment on above: Lumbar paraspinal mu scle spasm Start: 12-29-2023 End: 12-29-2023 Refill Kristina Fry PA Work Phone: [facility] Comment on above: Type 2 diabetes jeanne itus with diabetic polyneuropathy, without long-term current use of insulin ([facility]) Start: 12-28-2023 End: 12-28-2023 Refill Joana Stallworth MA [facility] Comment on above: Neuropathy Start: 12-07-2023 End: 12-07-2023 Office outpatient visit 25 minutes Olvin Kamara MD Work Phone: [facility] Comment on above: Type 2 diabetes jeanne itus with diabetic polyneuropathy, without long-term current use of insulin ([facility]) (Primary Dx); Lumbar paraspinal muscle spasm Start: 12-07-2023 End: 12-07-2023 ambulatory OLVIN KAMARA Not Available Start: 11-02-2023 End: 11-16-2023 ambulatory SEVERO CARR [facility] Start: 08-23-2023 End: 08-23-2023 ambulatory KRISTINA FRY Not Available Start: 06-07-2023 End: 06-07-2023 ambulatory OLVIN KAMARA [facility] Start: 12-28-2022 End: 01-25-2024 Chart abstracting Severo Carr MD Work Phone: [facility] - [facility] Oncology Start: 12-27-2022 ambulatory Castillo Lopes acility:[facility] Start: 11-15-2022 End: 11-23-2022 ambulatory [facility] Facility:[facility] Start: 11-10-2022 End: 11-10-2022 ambulatory Haylee Saucedo Other [employer] [facility] [employer] Other Start: 11-10-2022 Office outpatient vi sit 15 minutes Haylee Saucedo [facility] [place] Start: 09-12-2022 End: 09-12-2022 ambulatory Jude Barlow Other [employer] [facility] [employer] Other Start: 09-12-2022 Office outpatient ne w 20 minutes Jude Barlow [facility] [place] Start: 05-18-2022 End: 06-14-2022 ambulatory Monalisa Tyler Facility:[facility] Start: 05-03-2022 End: 05-04-2022 ambulatory [facility] Facility:[facility] Procedures Date Procedure Procedure Detail Performing Clinician Start: 06-20-2024 Hemoglobin glycosyla nathaniel a1c Kristina Fry PA Work Phone: Start: 01-23-2024 MULTIPLE LABS Not In Sy stem Ref Prov Start: 01-23-2024 ALL CBC WITH AUTO DIFF Generic External Data Provider Start: 12-07-2023 Hemoglobin glycosyla nathaniel a1c Olvin Kamara MD Work Phone: Start: 12-21-2022 Mammography Olvin parish MD Work Phone: Start: 08-21-2019 Colonoscopy Olvin parish MD Work Phone: Plan of Treatment Date Care Activity Detail Author Start: 08-20-2029 Screening for malign ant neoplasm of colon [facility] Start: 06-20-2025 Medicare Annual Well ness (AWV) Medicare Annual Wellness (AWV) [facility] Start: 01-24-2025 End: 01-24-2025 Patient encounter procedure 01/24/2025 2:30 PM EDT Office Visit [facility] [address] [place] [id number] Severo Carr MD [address] [facility] [address] [place], [place] [id number] [facility] Start: 01-24-2025 Adult BMI Screening Adult BMI Screen ing [employer] Start: 01-24-2025 End: 01-24-2025 CBC W Auto Differential panel - Blood CBC with auto diff Lab STAT CLL (chronic lymphocytic leukemia) ([facility]-HCC) Chronic pulmonary embolism without acute cor pulmonale, unspecified pulmonary embolism type ([facility]) Lymphadenopathy Expected: 01/24/2025 (Approximate), Expires: 01/24/2025 [employer] Work Phone: Comment on above: Expected: 01/24/2025 (Approximate), Expires: 01/24/2025 Start: 01-24-2025 End: 01-24-2025 Comprehensive metabolic 2000 panel - Serum or Plasma Comprehensive metabolic panel Lab STAT CLL (chronic lymphocytic leukemia) ([facility]-HCC) Chronic pulmonary embolism without acute cor pulmonale, unspecified pulmonary embolism type (CMS-HCC) Lymphadenopathy Expected: 01/24/2025 (Approximate), Expires: 01/24/2025 [employer] Comment on above: Expected: 01/24/2025 (Approximate), Expires: 01/24/2025 Start: 01-15-2025 End: 01-24-2025 CBC W Auto Differential panel - Blood CBC with auto diff Lab STAT CLL (chronic lymphocytic leukemia) ([facility]-H[facility]) Chronic pulmonary embolism without acute cor pulmonale, unspecified pulmonary embolism type (CMS-HCC) Lymphadenopathy Expected: 01/15/2025, Expires: 01/24/2025 [facility] Comment on above: Expected: 01/15/2025 , Expires: 01/24/2025 Start: 01-15-2025 End: 01-24-2025 Comprehensive metabolic 2000 panel - Serum or Plasma Comprehensive metabolic panel Lab Routine CLL (chronic lymphocytic leukemia) ([facility]-H[facility]) Chronic pulmonary embolism without acute cor pulmonale, unspecified pulmonary embolism type ([facility]) Lymphadenopathy Expected: 01/15/2025 (Approximate), Expires: 01/24/2025 [facility] Comment on above: Expected: 01/15/2025 (Approximate), Expires: 01/24/2025 Start: 11-18-2024 Glaucoma screening Diabetes: R etinopathy Screening [facility] Start: 09-20-2024 Hemoglobin A1c measurement Diabetes: Hemoglobin A1C [facility] Start: 06-20-2024 End: 06-20-2025 Comprehensive metabolic 2000 panel - Serum or Plasma Comprehensive metabolic panel Lab Routine Type 2 diabetes mellitus with diabetic polyneuropathy, without long-term current use of insulin ([facility]) Expected: 06/20/2024 (Approximate), Expires: 06/20/2025 [facility] Comment on above: Expected: 06/20/2024 (Approximate), Expires: 06/20/2025 Start: 06-20-2024 End: 08-20-2025 DBT Breast - bilateral screening Bilateral screening mammogram with tomosynthesis Imaging Routine Encounter for screening mammogram for malignant neoplasm of breast Expected: 06/20/2024, Expires: 08/20/2025 [facility] Work Phone: Comment on above: Expected: 06/20/2024 , Expires: 08/20/2025 Start: 06-20-2024 End: 06-20-2025 Microalbumin/Creatinine panel in random Urine Microalbumin / creatinine, urine ratio Lab Routine Type 2 diabetes mellitus with diabetic polyneuropathy, without long-term current use of insulin ([facility]/HCC) Expected: 06/20/2024 (Approximate), Expires: 06/20/2025 [facility] Comment on above: Expected: 06/20/2024 (Approximate), Expires: 06/20/2025 Start: 06-20-2024 End: 06-20-2024 Patient encounter procedure 06/20/2024 1:00 PM EST Office Visit [facility] [address] [place] [id number] Kristina Fry PA [address] [place] [address] Arrived [facility] Comment on above: Arrived Start: 06-06-2024 End: 06-06-2024 Patient encounter procedure [facility] Start: 05-12-2024 Urine screening for protein Diabetes: Urine Protein Screening [facility] Start: 03-08-2024 Hemoglobin A1c measurement Diabetes: Hemoglobin A1C [facility] Start: 01-20-2024 Medicare Annual Well ness (AWV) Medicare Annual Wellness (AWV) [facility] Start: 12-22-2023 Screening for malign ant neoplasm of breast Mammogram [facility] Start: 12-17-2023 Influenza vaccination [facility] Start: 02-22-2023 COVID-19 Vaccine (3 - Mixed Product risk series) COVID-19 Vaccine (3 - Mixed Product risk series) [facility] Start: 2018 Fall Risk Screening Fall Risk Screen ing [facility] Start: 1972 Administration of varicella zoster vaccine Zoster (Shingles) Vaccine (1 of 2) [facility] Start: 1972 DTaP,Tdap and Td Vaccines (1 - Tdap) DTaP,Tdap and Td Vaccines (1 - Tdap) [facility] Start: 1971 Adult BMI Follow Up Plan Adult BMI F ollow Up Plan [facility] Start: 1965 Depression Screening Depression Scre ening [facility] Start: 1965 Tobacco Screening Tobacco Screening [facility] Start: 1959 Pneumococcal Vaccine : 65+ Years (1 of 2 - PCV) Pneumococcal Vaccine: 65+ Years (1 of 2 - PCV) [facility] Start: 1953 Medicare Annual Well ness Visit Medicare Annual Wellness Visit [facility] Start: 1953 Screening for malign ant neoplasm of colon [facility] Lipid 1996 panel - S ekaterina or Plasma Lipid panel Lab Routine Medicare annual wellness visit, subsequent Type 2 diabetes mellitus with diabetic polyneuropathy, without long-term current use of insulin (CMS/HCC) Benign hypertension (CMS/HCC) Mixed hyperlipidemia ([facility]/HCC) Ordered: 06/20/2024 [facility] Comment on above: Ordered: 06/20/2024 Immunizations Immunization Date Immunization Notes Care Provider Fa cility 06-20-2024 Influenza, High-dose Seasonal, Quadrivalent, Preservative Free Kristina MINER Work Phone: [facility] 01-25-2023 ABRYSVO - Respirator y syncytial virus (RSV), vaccine, bivalent, protein subunit RSV prefusion F, diluent reconstituted, 0.5 mL, PF Olvin Kamara MD Work Phone: [facility] 01-25-2023 SARS-COV-2 (COVID-19 ) vaccine, mRNA, spike protein, LNP, PF, ana-sucrose, 30 mcg/0.3 mL Olvin Kamara MD Work Phone: [facility] 01-11-2023 Influenza, High-dose Seasonal, Quadrivalent, Preservative Free Olvin Kamara MD Work Phone: [facility] 01-11-2023 influenza virus vacc ine, unspecified formulation Olvin Kamara MD Work Phone: [facility] 06-09-2022 SARS-COV-2 (COVID-19 ) vaccine, mRNA, spike protein, LNP, bivalent, PF Olvin Kamara MD Work Phone: [facility] Payers Date Payer Category Payer Medicare [id number] 2022 Self-pay 2022 Medicare (Managed Care) [id number]. [id number] 2022 Unknown [employer] D [employer] [id number] 2022-Present [address] [place] [address] [id number] 2022 Unknown [id number] 2022 Medicaid [place]ICAID [place] -[place] ONLY [id number] 2022-Present [phone] [address] [place] [address] [id number] 2022 Unknown [id number] 1955 Unknown [id number] 18 1953 Unknown [id number] 18 1953 Unknown [id number] 18 1953 Unknown [id number] 286 1953 Unknown [id number] 286 1953 Unknown [id number] 286 1953 Unknown [id number] 259 1953 Unknown [id number] 259 1953 Unknown [id number] 259 Medicare [id number] Medicare [employer] [place] MEDICARE DEVOTED [facility] MEDICARE ADVANTAGE [id number] Effective for all dates [phone] [address] [place] [address] [id number] Social History Date Type Detail Facility Unknown if ever smoked [employer] Other Start: 01-12-2023 End: 06-20-2024 Sex Assigned At [facility] Start: 09-18-2022 Tobacco smoking status NHIS Never smoked tobacco [facility] Start: 09-18-2022 Tobacco use and exposure Smokeless tobacco non-user [facility] Start: 12-07-2023 End: 06-20-2024 Alcoholic beverage intake Lifetime non-drinker (finding) [facility] Start: 01-12-2023 End: 06-20-2024 History of Social function [facility] Within the last year , have you been afraid of your partner or ex-partner? No [facility] How often do you att end meetings of the clubs or organizations you belong to? Patient declined [facility] Are you now , , , , never or living with a partner? [facility] How often to you hav e a drink containing alcohol? Never [facility] How hard is it for y ou to pay for the very basics like food, housing, medical care, and heating Not very hard [facility] Do you feel stress - tense, restless, nervous, or anxious, or unable to sleep at night because your mind is troubled all the time - these days [OSQ] Rather much [facility] (I/We) worried whedomenica er (my/our) food would run out before (I/we) got money to buy more. Sometimes true [facility] Start: 1955 Sex assigned at Female [facility] Start: 12-20-2022 Gender identity Identifies as female gender (finding) [facility] Start: 12-20-2022 Sexual orientation Heterosexual (finding) [email or web address] Start: 1955 Sex assigned at Not on file Inform Direct ystem Medical Equipment Procedure Code Equipment Code Equipment Origin al Text Equipment Identifier Dates Use as instructe d three times a day [id number] Start: 02-13-2023 End: 02-13-2024 Use as directed three times a day. [id number] Start: 02-13-2023 End: 06-20-2024 1 each by Other route Daily [id number] Start: 06-20-2024 1 each by Other route Daily [id number] Start: 06-20-2024 Clinical Notes 09-12-2022 to 07-24-2024 Telephone Encounter - Olvin Kamara MD - 07/08/2024 4:32 PM EDTTelephone Encounter - Olvin Kamara MD - 07/08/2024 4:32 PM EDTTelephone Encounter - GHADA CALDERON - 07/08/2024 4:20 PM EDT Note Date & Type Note Facility 07-24-2024 Note Entered by MICHAEL FRENCH MA on July 24, 2024 16:45:17 EDT From: LUANA FRENCH MA To: Mapp #[id number] Sent: 07/24/2024 16:45:17 EDT Subject: Medication Management Not Approved: Patient needs appointment DULoxetine (duloxetine 60 mg capsule,delayed release) TAKE 1 CAPSULE BY MOUTH DAILY * DO NOT CRUSH OR CHEW * Qty: 90 cap(s) Days Supply: 90 Refills: 3 Substitutions Allowed Route To [facility] #[id number] Signed by LUANA FRENCH MA Not Approved: Patient needs appointment metoprolol (metoprolol tartrate 25 mg tablet) TAKE 1 TABLET BY MOUTH TWICE DAILY Qty: 180 tab(s) Days Supply: 90 Refills: 3 Substitutions Allowed Route To [facility] #[id number] Signed by LUANA FRENCH MA From: [facility][id number] To: David Angel DO, DO Sent: July 24, 2024 3:41:53 PM CDT Subject: Medication Management Due: July 25, 2024 12:07:06 AM CDT On Hold Pending Signature Drug: DULoxetine (DULoxetine 60 mg oral delayed release capsule), TAKE 1 CAPSULE BY MOUTH DAILY *DO NOT CHEW OR CRUSH* Quantity: 90 cap(s) Days Supply: 90 Refills: 3 Substitutions Allowed Notes from Pharmacy: Dispensed Drug: DULoxetine (DULoxetine 60 mg oral delayed release capsule), TAKE 1 CAPSULE BY MOUTH DAILY * DO NOT CRUSH OR CHEW * Quantity: 90 cap(s) Days Supply: 90 Refills: 3 Substitutions Allowed Notes from Pharmacy: On Hold Pending Signature Drug: metoprolol (Metoprolol Tartrate 25 mg oral tablet), TAKE 1 TABLET BY MOUTH TWICE DAILY Quantity: 180 tab(s) Days Supply: 90 Refills: 3 Substitutions Allowed Notes from Pharmacy: Dispensed Drug: metoprolol (Metoprolol Tartrate 25 mg oral tablet), TAKE 1 TABLET BY MOUTH TWICE DAILY Quantity: 180 tab(s) Days Supply: 90 Refills: 3 Substitutions Allowed Notes from Pharmacy: [facility] 07-08-2024 Telephone encount er Note Rx was sent. [facility] 07-08-2024 Miscellaneous Notes Formattin g of this note might be different from the original. Rx was sent. Patient called asking for an antibiotic for a sinus infection. She has head congestion, face pressure and yellow/ green drainage. documented in this encounter [facility] 07-08-2024 Telephone encount er Note Patient called asking for an antibiotic for a sinus infection. She has head congestion, face pressure and yellow/ green drainage. [facility] 06-20-2024 History of Presen t illness Narrative Images from the original note were not included. HPI Med Refill Additional comments: Freestyle lite gluometer, test strips, lancets Last edited by Rosa Ernst LPN on 06/20/2024 1:17 PM. Subjective Patient ID: Arleen Mejia is a 69 y.o. female who presents for Medicare Wellness. Also Med Refill (Freestyle lite gluometer, test strips, lancets). C/o allergies, runny nose during the day and congestion at night. Doesn't feel like Flonase is working well enough, pharmacist recommended Azelastine. States a month ago after being ill she had intense, pressure like pain, 8/10, stayed at that intensity, she fell asleep and when she woke up it was gone. Has not happened since then. States it was different than heartburn she has had before. C/o dizziness when she is standing for any period of time. Was told in the past by her previous provider that it was an inner ear issue. She knows if she is standing up she has to hang on to something. Drinks at least 80 ounces or more of water a day. Was given a medication previously. Feels like she is moving even though she isn't. Med Refill Associated symptoms include congestion. Pertinent negatives include no abdominal pain, arthralgias, chest pain, chills, coughing, fatigue, fever, nausea, numbness, rash, sore throat or vomiting. Medicare Wellness Over the past 2 weeks, how often have you been bothered by any of the following problems? Little interest or pleasure in doing things: Not at all Feeling down, depressed, or hopeless: Not at all Patient Health Questionnaire-2 Score: 0 Over the past 2 weeks, how often have you been bothered by any of the following problems? Trouble falling or staying asleep, or sleeping too much: Not at all Feeling tired or having little energy: Not at all Poor appetite or overeating: Not at all Feeling bad about yourself - or that you are a failure or have let yourself or your family down: Not at all Trouble concentrating on things, such as reading the newspaper or watching television: Not at all Moving or speaking so slowly that other people could have noticed? Or the opposite - being so fidgety or restless that you have been moving around a lot more than usual.: Not at all Thoughts that you would be better off or hurting yourself in some way: Not at all Patient Health Questionnaire-9 Score: 0 Esteves Fall Risk History of Falling, Immediate or Within 3 Months: No Health Risk Assessment Form Do you need help eating, bathing, using the toilet, dressing, or getting around your home?: No Can you prepare your own meals?: Yes Can you do your own housework without help?: Yes Can you shop for groceries or clothes without help?: Yes Do you exercise for about 20 minutes 3 or more days a week?: Yes How confident are you that you can control and manage most of your health problems?: Very confident Can you mange your money, credit cards and accounts, pay bills and taxes?: Yes Vision Screening: Yes, no gross abnormalities Hearing Screening: Yes, no gross abnormalities Cognitive Screening Self Assessment: No overt cognitive deficiency is apparent by direct observation Three Word Registration: Village, Kitchen, Baby Clock Drawing: Normal Clock - 2 Three Word Recall: All 3 words correct - 3 Total Score (0-5 Points): 5 Pain Assessment Pain Score: 5 - Moderate pain Advance Care Planning Do you have a living will?: Yes Do you have a medical power of workers compensation attorney?: Yes Current Outpatient Medications on File Prior to Visit Medication Sig Dispense Refill albuterol HFA (ProAir HFA) 90 mcg/act inhaler Inhale 2 puffs every 4 (four) hours if needed for wheezing or shortness of breath 18 g 3 atorvastatin (Lipitor) 20 MG tablet TAKE 1 TABLET BY MOUTH IN THE MORNING 100 tablet 3 betamethasone dipropionate (Diprolene) 0.05 % ointment Apply 1 application topically in the morning and 1 application before bedtime. 15 g 5 DULoxetine (Cymbalta) [address] capsule Take 60 mg by mouth in the morning. Eliquis 5 MG tablet TAKE 1 TABLET BY MOUTH IN THE MORNING then TAKE 1 TABLET BY MOUTH BEFORE bedtime 180 tablet 3 fluticasone (Flonase Allergy Relief) 50 MCG/ACT nasal spray Administer 1 spray into each nostril in the morning. 16 g 3 loratadine (Claritin) 10 MG tablet Take 1 tablet (10 mg) by mouth Daily 30 tablet 11 Melatonin 3 MG capsule Take 2 capsules by mouth at bedtime metFORMIN (Glucophage) 500 MG tablet Take 1 tablet (500 mg) by mouth in the morning and 1 tablet (500 mg) in the evening and 1 tablet (500 mg) before bedtime. Take with food.. 300 tablet 3 metoprolol tartrate (Lopressor) 25 MG tablet Take 25 mg by mouth in the morning and 25 mg before bedtime. montelukast (Singulair) 10 MG tablet TAKE 1 TABLET BY MOUTH AT BEDTIME 100 tablet 4 Multiple Vitamin (multivitamin) capsule Take 1 capsule by mouth Daily nortriptyline (Pamelor) 25 MG capsule TAKE 1 CAPSULE BY MOUTH AT BEDTIME 100 capsule 3 nystatin (Mycostatin) cream Apply 1 application topically in the morning and 1 application before bedtime. 24 g 1 Potassium 99 MG tablet Take 1 tablet by mouth Daily pregabalin (Lyrica) 100 MG capsule Take 1 capsule (100 mg) by mouth in the morning and 1 capsule (100 mg) in the evening and 1 capsule (100 mg) before bedtime. 270 capsule 0 semaglutide (Ozempic, 1 MG/DOSE,) 4 MG/3ML solution pen-injector Inject 1 mg under the skin 1 (one) time per week 3 mL 11 traMADol (Ultram) 50 MG tablet Take 1 tablet (50 mg) by mouth every 6 (six) hours if needed for severe pain 90 tablet 1 triamcinolone (Kenalog) 0.1 % ointment APPLY TO THE AFFECTED AREA(S) EXTERNALLY THREE TIMES DAILY FOR 7 DAYS 30 g 2 triamterene-hydrochlorothiazide (Maxzide-25) 37.5-25 MG tablet TAKE 1 TABLET BY MOUTH IN THE MORNING 100 tablet 3 [DISCONTINUED] cyclobenzaprine (Flexeril) 10 MG tablet TAKE 1 TABLET BY MOUTH THREE TIMES DAILY NEEDED FOR MUSCLE SPASMS up to 20 days 30 tablet 1 [DISCONTINUED] Lancets misc Use as directed three times a day. 300 each 12 No current facility-administered medications on file prior to visit. I have reviewed and reconciled the history and medication list with the patient today. Allergies Allergen Reactions Dilaudid [Hydromorphone] Erythromycin Gabapentin Unknown Latex Macrodantin [Nitrofurantoin] Social History Tobacco Use Smoking status: Never Smokeless tobacco: Never Vaping Use Vaping status: Never Used Substance Use Topics Alcohol use: Never Family History Problem Relation Name Age of Onset Anxiety disorder Mother Cancer Mother Diabetes Mother Cancer Father Liver disease Father Stroke Father Past Medical History: Diagnosis Date Acute kidney injury (CMS/HCC) 08/19/2020 Anxiety Cancer (CMS/HCC) CLL Depression (CMS/HCC) Diabetes mellitus (CMS/HCC) Hypertension (CMS/HCC) Insomnia Past Surgical History: Procedure Laterality Date BREAST LUMPECTOMY SECTION, LOW TRANSVERSE HERNIA REPAIR 2016 TONSILLECTOMY TOTAL KNEE ARTHROPLASTY 2019 Visit Vitals BP 122/76 Pulse 72 Resp 16 Ht 5' Wt 194 lb 3.2 oz SpO2 94% BMI 37.93 kg/m Smoking Status Never BSA 1.93 m Review of Systems Constitutional: Negative for chills, fatigue and fever. HENT: Positive for congestion and rhinorrhea. Negative for ear pain and sore throat. Eyes: Negative for pain, discharge and visual disturbance. Respiratory: Negative for cough, shortness of breath and wheezing. Cardiovascular: Negative for chest pain, palpitations and leg swelling. Gastrointestinal: Negative for abdominal pain, constipation, diarrhea, nausea and vomiting. Genitourinary: Negative for difficulty urinating, dysuria and frequency. Musculoskeletal: Negative for arthralgias and back pain. Skin: Negative for rash. Neurological: Positive for dizziness. Negative for numbness. Psychiatric/Behavioral: Negative for sleep disturbance. The patient is not nervous/anxious. Objective Physical Exam Constitutional: General: She is not in acute distress. Appearance: She is well-developed. She is obese. HENT: Head: Normocephalic and atraumatic. Right Ear: Tympanic membrane and ear canal normal. Left Ear: Tympanic membrane and ear canal normal. Nose: Nose normal. Mouth/Throat: Mouth: Mucous membranes are moist. Pharynx: No posterior oropharyngeal erythema. Eyes: General: No scleral icterus. Extraocular Movements: Extraocular movements intact. Conjunctiva/sclera: Conjunctivae normal. Pupils: Pupils are equal, round, and reactive to light. Neck: Vascular: No carotid bruit. Cardiovascular: Rate and Rhythm: Normal rate and regular rhythm. Heart sounds: Normal heart sounds. No murmur heard. Pulmonary: Effort: Pulmonary effort is normal. No respiratory distress. Breath sounds: Normal breath sounds. No wheezing, rhonchi or rales. Abdominal: General: Bowel sounds are normal. There is no distension. Palpations: Abdomen is soft. Tenderness: There is no abdominal tenderness. There is no guarding. Musculoskeletal: General: No swelling or deformity. Normal range of motion. Cervical back: Normal range of motion and neck supple. No tenderness. Skin: General: Skin is warm and dry. Capillary Refill: Capillary refill takes less than 2 seconds. Findings: No rash. Neurological: General: No focal deficit present. Mental Status: She is alert and oriented to person, place, and time. Cranial Nerves: No cranial nerve deficit. Sensory: No sensory deficit. Motor: No weakness. Gait: Gait normal. Deep Tendon Reflexes: Reflexes normal. Psychiatric: Mood and Affect: Mood normal. Behavior: Behavior normal. Thought Content: Thought content normal. Judgment: Judgment normal. Office Visit on 06/20/2024 Component Date Value Ref Range Status Hemoglobin A1C 06/20/2024 6.9 Final Assessment & Plan 1. Medicare annual wellness visit, subsequent (Primary) Reviewed all relevant preventative screenings with the patient in detail. Medicare Wellness form completed and will be scanned into patient's chart. All needed testing was ordered. Will continue with yearly Medicare Wellness exams. - Lipid panel 2. ACP (advance care planning) Patient willing to discuss ACP. Pt has Living Will and DPOA in place. 3. Encounter for screening mammogram for malignant neoplasm of breast Provided patient with an order for an updated Mammogram. If results are negative/normal, will plan to continue with routine yearly screenings. - Bilateral screening mammogram with tomosynthesis; Future 4. Type 2 diabetes mellitus with diabetic polyneuropathy, without long-term current use of insulin ([facility]) Advised pt that her HgbA1c has improved from 7.0 to 6.9. Continue current medications as prescribed and will continue to monitor routinely. - POCT Glycated hemoglobin, total - Microalbumin / creatinine, urine ratio - Comprehensive metabolic panel - Blood Glucose Monitoring Suppl (FreeStyle Lite) device; Use as instructed Dispense: 1 each; Refill: 0 - FREESTYLE LITE test strip; 1 each by Other route Daily Dispense: 100 each; Refill: 3 - Lancets misc; 1 each by Other route Daily Dispense: 100 each; Refill: 3 - Lipid panel 5. Need for vaccination Provided pt with Influenza vaccine today. She tolerated this well. Watch for any signs of infection at injection site. - Influenza, high-dose seasonal, quadrivalent, PF (DOS082) (Fluzone High Dose [place] 0.7mL dose) 6. Neuropathy This is a chronic medical condition that is stable since last assessment. No changes in treatment are suggested at this time. 7. Primary insomnia This is a chronic medical condition that is stable since last assessment. No changes in treatment are suggested at this time. Continue current medications as prescribed. 8. Benign hypertension (CMS/HCC) Patient's blood pressure is currently well controlled. Continue with current medications and I will continue to monitor. Goal BP remains less than 130/80. - Lipid panel 9. Chronic pulmonary embolism without acute cor pulmonale, unspecified pulmonary embolism type (CMS/HCC) This is a chronic medical condition that is stable since last assessment. No changes in treatment are suggested at this time. Continue Eliquis as prescribed. 10. Paroxysmal atrial fibrillation (CMS/HCC) This is a chronic medical condition that is stable since last assessment. No changes in treatment are suggested at this time. Continue Eliquis as prescribed. Did discuss with pt that if she ever has the type of chest pain that she did following that recent illness, she is to call EMS immediately. She is anticoagulated. No current CP or SOB. 11. Allergy to erythromycin Known allergy. Will avoid class of medication. 12. CLL (chronic lymphocytic leukemia) (CMS/HCC) The patient is seeing a electromedical equipment repairer for this condition, treatment is deferred to that specialist. Correspondence from that specialist and any available testing were reviewed during today's visit. 13. Depression with anxiety This is a chronic medical condition that is stable since last assessment. No changes in treatment are suggested at this time. Continue Cymbalta. 14. Mixed hyperlipidemia (CMS/HCC) This is a chronic medical condition that is stable since last assessment. No changes in treatment are suggested at this time. Continue Atorvastatin. Will continue to monitor with routine labs. - Lipid panel 15. Non-seasonal allergic rhinitis due to other allergic trigger Can continue Flonase and - Azelastine HCl 137 MCG/SPRAY solution; Administer 1 spray into affected nostril(s) in the morning and 1 spray before bedtime. Dispense: 30 mL; Refill: 5 16. Personal history of PE (pulmonary embolism) This is a chronic medical condition that is stable since last assessment. No changes in treatment are suggested at this time. Continue Eliquis as prescribed. 17. Psoriasis ([facility]) This is a chronic medical condition that is stable since last assessment. No changes in treatment are suggested at this time. Continue Triamcinolone as prescribed. 18. Class 2 severe obesity due to excess calories with serious comorbidity and body mass index (BMI) of 37.0 to 37.9 in adult ([facility]) Advised pt that she has lost 5 pounds since her last appointment. Advised her this is great. Encouraged portion control, decrease simple sugars and carbohydrates, gradually increase activity level. Continue to aim for gradual steady weight loss. 19. Vertigo She has taken Meclizine in the past with good relief of symptoms. Provided her with prescription to take as needed, cautioned it may cause drowsiness. She declines PT referral at this time. - meclizine (Antivert) 25 MG tablet; Take 1 tablet (25 mg) by mouth Daily as needed for dizziness Dispense: 30 tablet; Refill: 5 Follow up in about 3 months (around 09/20/2024) for Diabetes, Hypertension. Kristina CARRION, KRISTOFER-C documented in this encounter [facility] 04-05-2024 Telephone encount er Note Please refill. Planning to travel next week. Thank you, and have a blessed [place] and a safe, healthy and happy 2024! Last seen was 12/07/23 [facility] 04-05-2024 Miscellaneous Notes Formattin g of this note might be different from the original. Please refill. Planning to travel next week. Thank you, and have a blessed [place] and a safe, healthy and happy 2024! Last seen was 12/07/23 documented in this encounter [facility] 03-26-2024 Telephone encount er Note OARRS reviewed, Rx sent into patient's pharmacy. [facility] 03-26-2024 Miscellaneous Notes Formattin g of this note might be different from the original. OARRS reviewed, Rx sent into patient's pharmacy. documented in this encounter [facility] 03-25-2024 Telephone encount er Note Patient received 23 day supply on 03/12. Refill is too soon. [facility] 03-25-2024 Miscellaneous Notes Formattin g of this note might be different from the original. Patient received 23 day supply on 03/12. Refill is too soon. documented in this encounter [facility] 01-25-2024 History of Presen t illness Narrative Pt here for f/u cbc cmp CLL. Per Dr. Carr: Continue observation. Follow-up with me in 12 months with repeat CBC CMP. Print out orders. 1 year f/u and labs scheduled. Printed order and calendar given to patient. documented in this encounter [facility] [place] 01-25-2024 History of Presen t illness Narrative Images from the original note were not included. [facility] 01/25/24 Arleen Mejia is a 68 y.o. year old female seen today in the oncology clinic. No chief complaint on file. History of Present Illness: Ms. Mejia is a 68 y.o. female who was diagnosed with CLL back in February 2007 in [facility], WBC at that time was 23,000, bone marrow showed 38% of lymphocytes. Cytogenetics/fish were not reported then. She was treated with 6 cycles of FCR completed in mid 2007. Repeat bone marrow biopsy showed no evidence of residual disease. PET scan in 2011 showed no suspicious lymphadenopathy. She was briefly treated in May 2015 at [place] [address] Chang for worsening fatigue and night sweats with weekly Rituxan for 4 doses. The Rituxan did not improve her symptoms. She established care at [place] in 2017, bone marrow biopsy then showed 5% CLL. She was briefly started on ibrutinib and she was on it for a year. Again she has no improvement of symptoms while she was taking ibrutinib. She subsequently went to [facility] in [place], then went on for observation. In 2020, she developed cardiac arrest and DVT, pulmonary embolism. She underwent extraction of the blood clots in her lung, she is been on Eliquis 5 mg twice a day since the incidence. Currently the patient is not on any active treatment. According to the record, she was last evaluated by Dr. Susie Espinoza from [place] [facility] in November 2020. Interval history: The patient is doing well over the past 12 months. Denies any night sweats or fatigue, energy is baseline. She is tolerating Eliquis well denies any blood in the stool or urine. No significant weight loss. No frequent infections. No past medical history on file. No past surgical history on file. No family history on file. Social History Socioeconomic History Marital status: Social Determinants of Health Financial Resource Strain: Low Risk (01/12/2023) Received from [facility] Overall Financial Resource Strain (CARDIA) Difficulty of Paying Living Expenses: Not very hard Food Insecurity: No Food Insecurity (01/20/2023) Hunger Screening Food Insecurity - Worry: Never True Food Insecurity - Inability: Never True Recent Concern: Food Insecurity - Food Insecurity Present (01/12/2023) Received from [facility] Hunger Vital Sign Worried About Running Out of Food in the Last Year: Sometimes true Ran Out of Food in the Last Year: Sometimes true Transportation Needs: No Transportation Needs (01/12/2023) Received from [facility] PRAPARE - Transportation Lack of Transportation (Medical): No Lack of Transportation (Non-Medical): No Physical Activity: Sufficiently Active (01/12/2023) Received from [facility] Exercise Vital Sign Days of Exercise per Week: 3 days Minutes of Exercise per Session: 60 min Stress: Stress Concern Present (01/12/2023) Received from [facility] [place] [facility] [employer] [facility] - Occupational Stress Questionnaire Feeling of Stress : Rather much Social Connections: Moderately Isolated (01/12/2023) Received from [facility], [facility] Social Connection and Isolation Panel [NHANES] Frequency of Communication with Friends and Family: More than three times a week Frequency of Social Gatherings with Friends and Family: More than three times a week Attends Anglican Services: More than 4 times per year Active Member of Clubs or Organizations: No Attends Club or Organization Meetings: Patient declined Marital Status: Interpersonal Safety: Not At Risk (01/12/2023) Received from [facility], [facility] Humiliation, Afraid, Rape, and Kick questionnaire Fear of Current or Ex-Partner: No Emotionally Abused: No Physically Abused: No Sexually Abused: No Housing Instability: Low Risk (01/12/2023) Received from [facility], [facility] Housing Stability Vital Sign Unable to Pay for Housing in the Last Year: No Number of Places Lived in the Last Year: 2 Unstable Housing in the Last Year: No Allergies Allergen Reactions Erythromycin Hydromorphone Latex Nitrofurantoin Medication List Accurate as of January 25, 2024 3:00 PM. If you have any questions, ask your nurse or doctor. Medications Continued This Visit albuterol 90 mcg/actuation inhaler Refills: 0 Commonly known as: PROVENTIL HFA;VENTOLIN HFA atorvastatin 20 mg tablet Refills: 0 Commonly known as: LIPITOR diclofenac sodium 1 % gel Refills: 0 Commonly known as: VOLTAREN DULoxetine 60 mg capsule Refills: 0 Commonly known as: CYMBALTA ELIQUIS 5 mg tablet Refills: 0 Generic drug: apixaban fluticasone propionate 50 mcg/actuation nasal spray Refills: 0 Commonly known as: FLONASE melatonin 10 mg tablet,disintegrating Refills: 0 metFORMIN 500 mg tablet Refills: 0 Commonly known as: GLUCOPHAGE methylPREDNISolone 4 mg tablet Refills: 0 Commonly known as: MEDROL (ALTA) metoprolol tartrate 25 mg tablet Refills: 0 Commonly known as: LOPRESSOR montelukast 10 mg tablet Refills: 0 Commonly known as: SINGULAIR nortriptyline 25 mg capsule Refills: 0 Dose: 25 mg Commonly known as: PAMELOR OZEMPIC 1 mg/dose (4 mg/3 mL) pen injector Refills: 0 Generic drug: semaglutide pregabalin 100 mg capsule Refills: 0 Commonly known as: LYRICA traMADoL 50 mg tablet Refills: 0 Dose: 50 mg Commonly known as: ULTRAM triamcinolone 0.1 % ointment Refills: 0 Commonly known as: KENALOG triamterene-hydroCHLOROthiazid 37.5-25 mg per tablet Refills: 0 Dose: 1 tablet Commonly known as: MAXZIDE-25 Review of Symptoms: Review of Systems ECO- Symptomatic; fully ambulatory Physical Exam: General: Well appearing, in no acute distress. Vitals: BP 139/78 Pulse 78 Temp 36.9 C (98.5 F) (Oral) Resp 16 Ht 149.9 cm (4' 11 ) Wt 89.8 kg (198 lb) SpO2 97% BMI 39.99 kg/m Body mass index is 39.99 kg/m . Eyes: No icterus, no conjuctival erythema ENT: Pharyngeal mucosa was moist without exudate and inflammation or ulcerations. Tongue was midline and appeared normal.Gums were unremarkable. Lymph nodes: No palpable adenopathy Neck: Supple. There were no masses, tenderness. Trachea was midline. Respiratory: Respirations were non-labored. Lungs were clear to auscultation. There was no dullness to percussion. Cardiac: Regular rate and rhythm, S1 and S2 sounds were normal. There were no rubs or gallops. Abdomen: Soft, non-tender, Nondistended. Bowel sounds audible in all four quadrants. There were no palpable masses. The liver and spleen were not enlarged. Extremities: There was no clubbing, Cyanosis, edema. Skin: There was no obvious rashes, bruising or ecchymosis. Back exam: No palpable tenderness was appreciated. Neurologic: There was no unilateral weakness. Mood and affect: Normal. Recent Imaging: No results found. Recent Labs: No results found for this or any previous visit (from the past 336 hour(s)). Diagnosis Problem list: Problem List Items Addressed This Visit Hematopoietic and Hemostatic CLL (chronic lymphocytic leukemia) ([facility]) - Primary Impression: History of CLL Status post FCR in 2006 Single agent Rituxan weekly for 4 doses in 2015 and ibrutinib (fatigue and night sweats) 2016 Pulmonary embolism/DVT after cardiac arrest 2020, on Eliquis Plan: I reviewed the patient's past medical history in details. She had 6 cycles of FCR back in 2006 achieved very good response. In 2015 and 2016 she was treated with Rituxan and 1 year of ibrutinib for fatigue and night sweats, both treatment did not improve her symptoms. As far as I can tell from the medical records, the patient has been off treatment since 2016. CBC April 2022 showed she has a normal WBC, absolute lymphocyte count is within normal range. Repeat blood work February 2023 showed normal absolute lymphocyte count. CT scan of the chest abdomen pelvis showed no suspicious lymphadenopathy 2022. Most recent blood work 01/2024 showed normal absolute lymphocyte count. no evidence of disease progression. Physical examination is unremarkable. Continue observation. Follow-up with me in 12 months with repeat CBC CMP. Thank you. Severo Carr MD Please note that portions of this note were generated using voice recognition CU[employer] dictation software. Although every effort was made to ensure the accuracy of this automated service center assistant, some errors in service center assistant may have occurred. CC: Patient Care Team: Olvin Kamara MD as PCP - General (Internal Medicine) Severo Carr MD as Consulting Physician (Hematology) PCP:OLVIN KAMARA Referring MD: Severo Carr MD documented in this encounter [facility] [place] 01-25-2024 Instructions Severo Carr MD - 01/25/2024 2:30 PM EDT Continue observation. Follow-up with me in 12 months with repeat CBC CMP. Print out orders. documented in this encounter [facility] [place] 01-19-2024 Telephone encount er Note Metformin sent. [facility] 01-19-2024 Miscellaneous Notes Formattin g of this note might be different from the original. Metformin sent. documented in this encounter [facility] 01-01-2024 Telephone encount er Note Flexeril sent. [facility] 01-01-2024 Miscellaneous Notes Formattin g of this note might be different from the original. Flexeril sent. documented in this encounter [facility] 12-29-2023 Telephone encount er Note OARRS reviewed, Rx sent into patient's pharmacy. [facility] 12-29-2023 Miscellaneous Notes Formattin g of this note might be different from the original. OARRS reviewed, Rx sent into patient's pharmacy. documented in this encounter [facility] 12-07-2023 History of Presen t illness Narrative Images from the original note were not included. Subjective Patient ID: Arleen Mejia is a 68 y.o. female who presents for Diabetes and Hypertension. Has lower back pain after trying to get out from under her bed she is using tylenol, stretching, heat--has helped some Diabetes Mellitus Patient presents for follow up of diabetes. Patient denies foot ulcerations, hypoglycemia , polydipsia, and polyuria. Evaluation to date has included: fasting blood sugar, fasting lipid panel, and hemoglobin A1C. Home sugars: BGs have been labile ranging between 120 and 140 Hypertension Patient is here for follow-up of elevated blood pressure. Cardiac symptoms: none. Patient denies chest pain, claudication, irregular heart beat, near-syncope, orthopnea, palpitations, paroxysmal nocturnal dyspnea, syncope, and tachypnea. Cardiovascular risk factors: advanced age (older than 55 for men, 65 for women), diabetes mellitus, hypertension, and obesity (BMI >= 30 kg/m2). Diabetes Pertinent negatives for diabetes include no chest pain and no fatigue. Hypertension Pertinent negatives include no chest pain. Current Outpatient Medications on File Prior to Visit Medication Sig Dispense Refill albuterol HFA (ProAir HFA) 90 mcg/act inhaler Inhale 2 puffs every 4 (four) hours if needed for wheezing or shortness of breath. atorvastatin (Lipitor) 20 MG tablet TAKE 1 TABLET BY MOUTH IN THE MORNING 100 tablet 3 betamethasone dipropionate (Diprolene) 0.05 % ointment Apply 1 application topically in the morning and 1 application before bedtime. 15 g 5 DULoxetine (Cymbalta) [address] capsule Take 60 mg by mouth in the morning. Eliquis 5 MG tablet TAKE 1 TABLET BY MOUTH IN THE MORNING then TAKE 1 TABLET BY MOUTH BEFORE bedtime 180 tablet 3 fluticasone (Flonase Allergy Relief) 50 MCG/ACT nasal spray Administer 1 spray into each nostril in the morning. 16 g 3 FREESTYLE LITE test strip Use as instructed three times a day 300 each 12 Lancets misc Use as directed three times a day. 300 each 12 loratadine (Claritin) 10 MG tablet Take 1 tablet (10 mg) by mouth Daily 30 tablet 11 metFORMIN (Glucophage) 500 MG tablet TAKE 1 TABLET BY MOUTH THREE TIMES DAILY (IN THE MORNING, IN THE EVENING, and BEFORE bedtime) 100 tablet 4 metoprolol tartrate (Lopressor) 25 MG tablet Take 25 mg by mouth in the morning and 25 mg before bedtime. montelukast (Singulair) 10 MG tablet TAKE 1 TABLET BY MOUTH AT BEDTIME 100 tablet 4 nortriptyline (Pamelor) 25 MG capsule TAKE 1 CAPSULE BY MOUTH AT BEDTIME 100 capsule 3 nystatin (Mycostatin) cream Apply 1 application topically in the morning and 1 application before bedtime. 24 g 1 Ozempic, 1 MG/DOSE, 4 MG/3ML solution pen-injector Inject 1 mg under the skin 1 (one) time per week. pregabalin (Lyrica) 100 MG capsule Take 1 capsule (100 mg) by mouth in the morning and 1 capsule (100 mg) in the evening and 1 capsule (100 mg) before bedtime. 270 capsule 0 traMADol (Ultram) 50 MG tablet Take 1 tablet (50 mg) by mouth every 6 (six) hours if needed for moderate pain 90 tablet 0 triamcinolone (Kenalog) 0.1 % ointment APPLY TO THE AFFECTED AREA(S) EXTERNALLY THREE TIMES DAILY FOR 7 DAYS 30 g 2 triamterene-hydrochlorothiazide (Maxzide-25) 37.5-25 MG tablet TAKE 1 TABLET BY MOUTH IN THE MORNING 100 tablet 3 [DISCONTINUED] pregabalin (Lyrica) 100 MG capsule TAKE 1 CAPSULE BY MOUTH IN THE MORNING then TAKE 1 CAPSULE BY MOUTH IN THE EVENING then TAKE 1 CAPSULE BY MOUTH BEFORE bedtime 270 capsule 0 No current facility-administered medications on file prior to visit. Allergies Allergen Reactions Dilaudid [Hydromorphone] Erythromycin Gabapentin Unknown Latex Macrodantin [Nitrofurantoin] Social History Tobacco Use Smoking status: Never Smokeless tobacco: Never Substance Use Topics Alcohol use: Never Family History Problem Relation Name Age of Onset Anxiety disorder Mother Cancer Mother Diabetes Mother Cancer Father Liver disease Father Stroke Father Past Medical History: Diagnosis Date Anxiety Cancer (CMS/HCC) CLL Depression (CMS/HCC) Diabetes mellitus (CMS/HCC) Hypertension (CMS/HCC) Insomnia Past Surgical History: Procedure Laterality Date BREAST LUMPECTOMY SECTION, LOW TRANSVERSE HERNIA REPAIR 2016 TONSILLECTOMY TOTAL KNEE ARTHROPLASTY 2019 Visit Vitals BP 128/76 Pulse 74 Ht 5' Wt 199 lb SpO2 97% BMI 38.86 kg/m Smoking Status Never BSA 1.96 m Review of Systems Constitutional: Negative for fatigue. Cardiovascular: Negative for chest pain. Objective Physical Exam Constitutional: General: She is not in acute distress. Appearance: Normal appearance. She is well-developed. HENT: Head: Normocephalic and atraumatic. Right Ear: Tympanic membrane and ear canal normal. Left Ear: Tympanic membrane and ear canal normal. Nose: Nose normal. Mouth/Throat: Mouth: Mucous membranes are moist. Pharynx: No posterior oropharyngeal erythema. Eyes: General: No scleral icterus. Extraocular Movements: Extraocular movements intact. Conjunctiva/sclera: Conjunctivae normal. Pupils: Pupils are equal, round, and reactive to light. Cardiovascular: Rate and Rhythm: Normal rate and regular rhythm. Heart sounds: Normal heart sounds. No murmur heard. Pulmonary: Effort: Pulmonary effort is normal. No respiratory distress. Breath sounds: Normal breath sounds. No wheezing, rhonchi or rales. Abdominal: General: Bowel sounds are normal. There is no distension. Palpations: Abdomen is soft. Tenderness: There is no abdominal tenderness. There is no guarding. Musculoskeletal: General: No swelling or deformity. Normal range of motion. Cervical back: Normal range of motion and neck supple. No tenderness. Lumbar back: Spasms and tenderness present. No deformity. Normal range of motion. Negative right straight leg raise test and negative left straight leg raise test. No scoliosis. Skin: General: Skin is warm and dry. Capillary Refill: Capillary refill takes less than 2 seconds. Findings: No rash. Neurological: General: No focal deficit present. Mental Status: She is alert and oriented to person, place, and time. Cranial Nerves: No cranial nerve deficit. Sensory: No sensory deficit. Motor: No weakness. Gait: Gait normal. Deep Tendon Reflexes: Reflexes normal. Psychiatric: Mood and Affect: Mood normal. Behavior: Behavior normal. Thought Content: Thought content normal. Judgment: Judgment normal. Follow-Up on 12/07/2023 Component Date Value Ref Range Status Hemoglobin A1C 12/07/2023 7.0 Final Assessment/Plan Diagnoses and all orders for this visit: Type 2 diabetes mellitus with diabetic polyneuropathy, without long-term current use of insulin ([facility]) - POCT Glycated hemoglobin, total - FSBS log shows good control, most recent A1C is at or near goal. Continue current treatment plan as previously outlined without changes. Lumbar paraspinal muscle spasm - cyclobenzaprine (Flexeril) 10 MG tablet; Take 1 tablet (10 mg) by mouth 3 (three) times a day as needed for muscle spasms for up to 20 days Follow up in about 4 months (around 04/07/2024) for DM- A1C. documented in this encounter [facility] 11-10-2022 Evaluation note Encounter Date Diagnosis Assessment [...] general. Patient verbalized understanding of treatment plan. [employer] Other 05-29-2023 Evaluation note* Encounter Date Diagnosis Assessment Notes Treatment Notes Treatment Clinical Notes August, COVID-19 virus infection (ICD-10 - [...] pass out. August, Bronchitis (ICD-10 - J40) [employer] Other Evaluation note* Diagnosis Type 2 diabetes mellitus with diabetic polyneuropathy, without long-term current use of insulin ([facility]) [facility] Diagnosis Neuropathy Mononeuritis of unspecified site documented [facility]* Diagnosis Neuropathy Mononeuritis of unspecified site [facility]* Diagnosis Neuropathy Mononeuritis of unspecified site documented [facility]* Diagnosis Type 2 diabetes mellitus with diabetic polyneuropathy, without long-term current use of insulin ([facility]) [facility]* Diagnosis Lumbar paraspinal muscle spasm Other symptoms referable to back [facility]* Diagnosis Neuropathy Mononeuritis of unspecified site [facility]* Diagnosis Type 2 diabetes mellitus with diabetic polyneuropathy, without long-term current use of insulin ([facility])- Primary Lumbar paraspinal muscle spasm Other symptoms referable to back [facility]* Diagnosis Neuropathy Mononeuritis of unspecified site documented [facility]* Diagnosis CLL (chronic lymphocytic leukemia) ([facility])- Primary Chronic lymphoid leukemia, without mention of having achieved remission Chronic pulmonary embolism without acute cor pulmonale, unspecified pulmonary embolism type ([facility]) Lymphadenopathy Enlargement of lymph nodes [facility] Diagnosis CLL (chronic lymphocytic leukemia) ([facility])- Primary Chronic lymphoid leukemia, without mention of having achieved remission [facility] Diagnosis Medicare annual wellness visit, subsequent- Primary ACP (advance care planning) Other specified counseling Encounter for screening mammogram for malignant neoplasm of breast Type 2 diabetes mellitus with diabetic polyneuropathy, without long-term current use of insulin ([facility]) Need for vaccination Need for prophylactic vaccination and inoculation against unspecified single disease Neuropathy Mononeuritis of unspecified site Primary insomnia Persistent disorder of initiating or maintaining sleep Benign hypertension ([facility]) Essential hypertension, benign Chronic pulmonary embolism without acute cor pulmonale, unspecified pulmonary embolism type ([facility]) Paroxysmal atrial fibrillation ([facility]) Atrial fibrillation Allergy to erythromycin CLL (chronic lymphocytic leukemia) ([facility]) Chronic lymphoid leukemia, without mention of having achieved remission Depression with anxiety Dysthymic disorder Mixed hyperlipidemia ([facility]) Mixed hyperlipidemia Non-seasonal allergic rhinitis due to other allergic trigger Personal history of PE (pulmonary embolism) Personal history of venous thrombosis and embolism Psoriasis ([facility]) Other psoriasis Class 2 severe obesity due to excess calories with serious comorbidity and body mass index (BMI) of 37.0 to 37.9 in adult ([facility]) Vertigo Dizziness and giddiness documented in this encounter [facility]* Diagnosis Acute non-recurrent sinusitis, unspecified location- Primary documented in this encounter [facility]* Diagnosis Neuropathy Mononeuritis of unspecified site [facility] Narrative - Reported* Type Description Date Medical History Anxiety Medical History Asthma Medical History HTN (hypertension) Medical History Diabetes Medical History Obesity Medical History Neuropathy Medical History Seasonal allergic rhinitis Medical History Afib Surgical History tonsillectomy Surgical History colon resection Surgical History C section Surgical History hernia repair Surgical History tubal ligation Hospitalization History See [facility] [employer] Other InstructionsNot on filedocumented in this encounter [facility] SystemInstructionsNot on filedocumented in this encounter [facility] [employer] Summary Purpose Family History No Family History Records FoundNo Family History Records FoundNo Family History Records FoundNo Family History Records FoundNo Family History Records FoundNo Family History Records Found Advance Directives No Advanced Directives Records FoundNo Advanced Directives Records FoundNo Advanced Directives Records FoundNo Advanced Directives Records FoundNo Advanced Directives Records FoundNo Advanced Directives Records Found Reason for Referral Specialty Diagnoses / Procedures Referred By Contac t Referred To Contact Diagnoses Lumbar paraspinal muscle spasm Kristina Fry PA [address] [address] Referral ID Status Reason Start Date Expiration Date V isits Requested Visits Authorized [id number] Pending Review 01/01/2024 06/29/2024 1 1 Specialty Diagnoses / Procedures Referred By Contac t Referred To Contact Diagnoses Type 2 diabetes mellitus with diabetic polyneuropathy, without long-term current use of insulin ([facility]) Kristina Fry PA [address] [address] Referral ID Status Reason Start Date Expiration Date Visits Re quested Visits Authorized [id number] Closed 1 1 Specialty Diagnoses / Procedures Referred By Contac t Referred To Contact Diagnoses Neuropathy Olvin Kamara MD [address] [address] Referral ID Status Reason Start Date Expiration Date Visits Re quested Visits Authorized [id number] Closed 1 1 Additional Source Comments REASON FOR VISIT (unrecogniz ed section and content) Reason Comments Med Refill Reason Onset Date Comments Med Refill 01/22/2024 Reason Onset Date Comments Med Refill 12/28/2023 Reason Onset Date Comments Med Refill 12/29/2023 Reason Comments Med Refill Reason Onset Date Comments Med Refill 03/26/2024 Reason Comments Diabetes Hypertension Reason Onset Date Comments Med Refill 04/05/2024 Reason Onset Date Comments Med Refill 05/27/2024 Reason Comments Med Refill Freestyle lite gluom eter, test strips, lancets Reason Onset Date Comments Med Refill 07/17/2024 INFORMATION SOURCE (unrecogn ized section and content) DATE CREATED AUTHOR 11/24/2022 [facility] DATE CREATED AUTHOR AUTHOR'S ORGANIZ ATION 07/08/2023 [facility] DATE CREATED AUTHOR AUTHOR'S ORGANIZ ATION 01/27/2024 [facility] DATE CREATED AUTHOR AUTHOR'S ORGANIZ ATION 06/22/2024 [facility] EPIC DATE CREATED AUTHOR AUTHOR'S ORGANIZ ATION 06/23/2024 [facility] DATE CREATED AUTHOR AUTHOR'S ORGANIZ ATION 07/26/2024 [facility] Teams (unrecognized sec tion and content) Outbound Supervisor Relationship Specialty Start Date End Date Olvin Kamara MD [address] [place] [address] PCP - General Internal Medicine 08/30/22 Olvin Kamara MD [address] [place] [address] PCP - Devoted 09/15/22 Outbound Supervisor Relationship Specialty Start Date End Date Olvin Kamara MD [address] [place] [address] PCP - General Internal Medicine 08/30/22 Olvin Kamara MD [address] [place] [address] PCP - Devoted 09/15/22 Outbound Supervisor Relationship Specialty Start Date End Date Olvin Kamara MD [address] [place] [address] PCP - General Internal Medicine 08/30/22 Olvin Kamara MD [address] [place] [address] PCP - Devoted 09/15/22 Outbound Supervisor Relationship Specialty Start Date End Date Olvin Kamara MD [address] [place] [address] PCP - General Internal Medicine 08/30/22 Olvin Kamara MD [address] [place] [address] PCP - Devoted 09/15/22 Outbound Supervisor Relationship Specialty Start Date End Date Olvin Kamara MD [address] [place] [address] PCP - General Internal Medicine 08/30/22 Olvin Kamara MD [address] [place] [address] PCP - Devoted 09/15/22 Outbound Supervisor Relationship Specialty Start Date End Date Olvin Kamara MD [address] [place] [address] PCP - General Internal Medicine 08/30/22 Olvin Kamara MD [address] [place] [address] PCP - Devoted 09/15/22 04/16/24 Outbound Supervisor Relationship Specialty Start Date End Date Olvin Kamara MD [address] [place] [address] PCP - General Internal Medicine 08/30/22 Olvin Kamara MD [address] [place] [address] PCP - Devoted 09/15/22 04/16/24 Outbound Supervisor Relationship Specialty Start Date End Date Olvin Kamara MD [address] [place] [address] PCP - General Internal Medicine 08/30/22 Olvin Kamara MD [address] [place] [address] PCP - Devoted 09/15/22 Outbound Supervisor Relationship Specialty Start Date End Date Olvin Kamara MD [address] [place] [address] PCP - General Internal Medicine 08/30/22 Outbound Supervisor Relationship Specialty Start Date End Date Olvin Kamara MD [address] [place] [address] PCP - General Internal Medicine 02/20/23 Outbound Supervisor Relationship Specialty Start Date End Date Olvin Kamara MD [address] [place] [address] PCP - General Internal Medicine 02/20/23 Outbound Supervisor Relationship Specialty Start Date End Date Olvin Kamara MD [address] [place] [address] PCP - General Internal Medicine 02/20/23 Outbound Supervisor Relationship Specialty Start Date End Date Olvin Kamara MD [address] [place] [address] PCP - General Internal Medicine 08/30/22 Olvin Kamara MD [address] [place] [address] PCP - Amy ADAMS 04/17/24 Outbound Supervisor Relationship Specialty Start Date End Date Olvin Kamara MD [address] [place] [address] PCP - General Internal Medicine 08/30/22 Olvin Kamara MD [address] [place] [address] PCP Hortencia Reyes MA 04/17/24 Outbound Supervisor Relationship Specialty Start Date End Date Olvin Kamara MD [address] [facility] [place] [address] PCP - General Internal Medicine 08/30/22 Olvin Kamara MD [address] [facility] [place] [address] PCP Hortencia Reyes MA 04/17/24 FOR RECORDS PERTAINING TO PATIENTS WHO ARE [...] BE BASED ON THE PRIMARY CLINICAL RECORDS. [facility]. provides no warranty or guarantee of the accuracy or completeness of information in this document.
== END 2024-07-26 13:45 | disposition home or self-care (01) ==
LOC: MAMMO 13:44
PROVIDERS: PCP Internal Medicine; Visit Provider Physician Assistant
DX: Z12.31 Encounter for screening mammogram for malignant neoplasm of breast (principal); Z80.41 Family history of malignant neoplasm of ovary; Z80.8 Family history of malignant neoplasm of other organs or systems
CPT/HCPCS: 77063; 77067